=== PATIENT | female | born 1950 | race Caucasian/White ===

== ENCOUNTER 2017-03-07 14:59 | Inpatient (IN) | payer OTHER, MEDICAID ==
[~2017-03-07] VITALS: Ht 152.4 cm; Wt 90.7 kg
[2017-03-07 15:15] VITALS: BP 158/103; PULSE 108; RESP 23; TEMP 99; O2SAT 90
--- NOTE | 2017-03-07 15:15 | NUR ---
Patient to ER bed 1 to gown for evaluation. Side rails up. Report given to Roselia REVELES.
--- NOTE | 2017-03-07 15:21 | NUR ---
Patient to ER C/O productive cough with greenish sputum for the past 4 days. Patient also C/O chest pressure. Patient has Hx of COPD & DM. AAOx4, wheezing upper lobed and diminished lower lobes. No distress.
--- NOTE | 2017-03-07 15:24 | NUR ---
ER MD Zepeda at bedside for evaluation
--- NOTE | 2017-03-07 15:32 | NUR ---
RT at bedside for breathing treatment
[2017-03-07] MEDS ORDERED: ALBUTEROL SULFATE 0.083% 2.5 MG/3 ML VIAL.NEB INH ONE ×2 (15:45→17:30)
[2017-03-07 16:04] LABS: BASOPHILS # (AUTO) 0.1 K/uL (0.0-0.2); BASOPHILS % (AUTO) 0.7 % (0.0-2.0); EOSINOPHILS # (AUTO) 0.1 K/uL (0.0-0.4); EOSINOPHILS % (AUTO) 0.9 % (0.0-4.0); HEMATOCRIT 37.9 % (36-48); HEMOGLOBIN 12.7 g/dL (12.0-16.0); LYMPHOCYTES # (AUTO) 1.7 K/uL (1.0-5.5); LYMPHOCYTES % (AUTO) 12.7 % (20.5-51.5); MEAN CORPUSCULAR HEMOGLOBIN 29 pg (27-31); MEAN CORPUSCULAR HGB CONC 34 % (32-36); MEAN CORPUSCULAR VOLUME 86 fL (79.0-98.0); MONOCYTES # (AUTO) 0.7 K/uL (0.0-1.0); MONOCYTES % (AUTO) 5.7 % (1.7-9.3); NEUTROPHILS # (AUTO) 10.5 K/uL (1.8-7.7); PLATELET COUNT (AUTO) 196 K/uL (130-430); RED BLOOD CELL COUNT(AUTO) 4.39 MIL/uL (4.2-6.2); WHITE BLOOD COUNT (AUTO) 13.1 K/uL (4.8-10.8)
[2017-03-07 16:17] LABS: BILIRUBIN,URINE NEGATIVE (NEGATIVE); CLARITY/URINE CLOUDY (CLEAR); COLOR,URINE YELLOW (YELLOW); GLUCOSE,URINE 3+ (NEGATIVE); KETONES,URINE NEGATIVE (NEGATIVE); LEUKOCYTE ESTERASE ,URINE 1+ (NEGATIVE); PH,URINE 5.5 (5.0-8.0); PROTEIN URINE TRACE (NEGATIVE)
[2017-03-07 16:18] LABS: BLOOD, URINE TRACE (NEGATIVE); NITRITE, URINE NEGATIVE (NEGATIVE); UROBILINOGEN,URINE 0.2 (0.2-1.0)
[2017-03-07 16:20] LABS: CALCIUM 8.6 mg/dL (8.4-11.0); CREATININE 1.18 mg/dL (0.55-1.30)
[2017-03-07 16:21] LABS: PROTHROMBIN TIME 10.5 SECS (9.5-12.5)
[2017-03-07 16:22] LABS: BACTERIA,URINE MANY /HPF (None Seen); WBC,URINE >100 /HPF (0-3)
[2017-03-07 16:23] LABS: MUCUS,URINE None Seen /LPF (None Seen)
[2017-03-07 16:25] LABS: ALBUMIN 3.3 g/dL (3.4-4.8); TOTAL BILIRUBIN 0.4 mg/dL (0.0-1.0); TOTAL PROTEIN, SERUM 7.2 g/dL (6.4-8.3)
--- NOTE | 2017-03-07 16:27 | NUR ---
Medication reconciliation completed - verbal from patient. Patient knows the names of the medications but does not remeber how often or how many mgs
[2017-03-07] MEDS ORDERED: FLUT1DIS5 INH (16:30)
[2017-03-07] MEDS ORDERED: SPIRIVA INH (16:30)
[2017-03-07] MEDS ORDERED: LISI2.5T48 PO (16:30)
[2017-03-07] MEDS ORDERED: SITA1TAB9 PO (16:30)
[2017-03-07] MEDS ORDERED: GLIP2.5T3 PO (16:30)
[2017-03-07] MEDS ORDERED: BECL8.7A6 IH (16:30)
[2017-03-07 16:46] LABS: BLOOD GAS PH 7.378 (7.350-7.450)
[2017-03-07 16:47] LABS: ABG TOTAL HEMOGLOBIN 13.2 G/dL (12.0-18.0); BLOOD GAS BASE EXCESS -0.2 mmol/L (-3.0-3.0); BLOOD GAS COHb% 0.6 % (0.5-1.5); BLOOD GAS HHB 10.2 % (0.0-6.0); BLOOD O2Hb% 88.7 % (94.0-97.0)
--- NOTE | 2017-03-07 16:49 | NUR ---
# 20 gauge angiocath placed to left ac. Use of asceptic technique. Opsite placed over site. Blood return noted. Blood for lab drawn from site. Flushed with 10 cc of normal saline. No evidence of infiltration noted. Patient tolerated well.
--- NOTE | 2017-03-07 17:24 | NUR ---
MD Varela at bedside evaluating the patient for admission
[2017-03-07] MEDS ORDERED: LEVOFLOXACIN 500 MG/D5W 100 ML IV ONE ×2 (17:30→17:45)
[2017-03-07] MEDS ORDERED: NS 500 ML IV ONE (17:30)
--- NOTE | 2017-03-07 17:43 | NUR ---
Patient will be admitted to care of Dr England by Dr Varela. Admitted to TELE IN unit. Will go to room 130A. Belongings list completed. Summary report printed. Report given to RN.
[2017-03-07] MEDS ORDERED: DEXTROSE 50% JECT 50 ML DISP.SYRIN IVP PRN (17:45)
--- NOTE | 2017-03-07 17:57 | NUR ---
[facility]. Licensed nurse present. IV present no signs or symptoms of infiltration.
[2017-03-07] MEDS ORDERED: ACETAMINOPHEN 500 MG TABLET PO PRN (18:00)
--- NOTE | 2017-03-07 18:10 | NUR ---
ADMISSION NOTE Received patient from ER via gurney. Patient admitted with diagnosis of SEPSIS/PNA. Patient is awake, alert, oriented X 3. Patient oriented to hospital room, call light, toileting, pain management and safety-teach back done. Patient informed that Tanya will be her nurse and that their room number is 130A. Call light within reach.
--- NOTE | 2017-03-07 19:09 | NUR ---
Consult Called Reason for consultation: COPD Was consult called? Yes Person who was notified: Consulting Physician: Crista Liu MD Photographic Reproduction Technician Specialty: Pulmonary Photographic Reproduction Technician
--- NOTE | 2017-03-07 19:30 | NUR ---
SBAR REPORT GIVEN TO INCOMING NURSE LANDY RN.
[2017-03-07 19:34] VITALS: BP 113/59; PULSE 92; RESP 18; TEMP 98.7; O2SAT 94
[2017-03-07 19:45] VITALS: BP 128/71; PULSE 85; RESP 20; TEMP 97.7; O2SAT 94
[2017-03-07 20:45] VITALS: BP 128/71; PULSE 90
--- NOTE | 2017-03-07 21:30 | NUR ---
ROUNDS PT IS RESTING IN BED, WATCHING TV @ THIS TIME. NO S/S OF PAIN AND NO RESPI DISTRESS NOTED. BED IN LOW POSITION WITH CALL LIGHT WITHIN REACH. WILL CONT TO MONITOR.
[2017-03-07] MEDS: ALBUTEROL SULFATE 0.083% 2.5 MG/3 ML VIAL.NEB INH PRN (22:04)
[2017-03-07] MEDS: methylPREDNISolone SOD SUCC/PF 62.5 MG/ML VIAL IVP SCH (22:04)
[2017-03-07] MEDS: NACL 0.9% 1,000 ML IV SCH (22:04)
[2017-03-07] MEDS: IPRATROPIUM BROM 0.5 MG/2.5 ML VIAL.NEB (ATROVENT) INH PRN (22:05)
[2017-03-07 23:29] VITALS: BP 133/70; PULSE 88; RESP 21; TEMP 97.3; O2SAT 82
--- NOTE | 2017-03-07 23:30 | NUR ---
ASSISTED TO COMMODE ASSISTED PT TO COMMODE AND SAFELY BACK TO BED. NO S/S OF PAIN AND NO RESPI DISTRESS NOTED. BED IN LOW POSITION WITH CALL LIGHT WITHIN REACH. WILL CONT TO MONITOR.
[2017-03-07] MEDS: INSULIN REGULAR, HUMAN 100 UNITS/ML, 10 ML VIAL (novoLIN R) SUBCUT PRN (23:59)
--- NOTE | 2017-03-08 01:30 | NUR ---
ROUNDS PT IS RESTING COMFORTABLY IN BED. NO S/S OF PAIN AND NO RESPI DISTRESS NOTED. BED IN LOW POSITION WITH CALL LIGHT WITHIN REACH. WILL CONT TO MONITOR.
[2017-03-08] MEDS: methylPREDNISolone SOD SUCC/PF 62.5 MG/ML VIAL IVP SCH ×3 (05:18→20:23)
[2017-03-08 05:20] VITALS: BP 114/64; PULSE 85; RESP 17; TEMP 97.6; O2SAT 97
[2017-03-08] MEDS: INSULIN REGULAR, HUMAN 100 UNITS/ML, 10 ML VIAL (novoLIN R) SUBCUT PRN ×4 (05:32→23:52)
[2017-03-08 06:31] LABS: BASOPHILS % (AUTO) 0.2 % (0.0-2.0); EOSINOPHILS % (AUTO) 0.1 % (0.0-4.0); HEMATOCRIT 35.2 % (36-48); HEMOGLOBIN 12.4 g/dL (12.0-16.0); LYMPHOCYTES # (AUTO) 0.8 K/uL (1.0-5.5); LYMPHOCYTES % (AUTO) 7.3 % (20.5-51.5); MEAN CORPUSCULAR HEMOGLOBIN 30 pg (27-31); MEAN CORPUSCULAR HGB CONC 35 % (32-36); MEAN CORPUSCULAR VOLUME 85 fL (79.0-98.0); MONOCYTES # (AUTO) 0.1 K/uL (0.0-1.0); MONOCYTES % (AUTO) 0.8 % (1.7-9.3); NEUTROPHILS # (AUTO) 10.7 K/uL (1.8-7.7); NEUTROPHILS % (AUTO) 91.6 % (40.0-70.0); PLATELET COUNT (AUTO) 176 K/uL (130-430); RED BLOOD CELL COUNT(AUTO) 4.15 MIL/uL (4.2-6.2); WHITE BLOOD COUNT (AUTO) 11.6 K/uL (4.8-10.8)
[2017-03-08 06:41] LABS: ALBUMIN 3.1 g/dL (3.4-4.8); CALCIUM 8.5 mg/dL (8.4-11.0); CREATININE 1.03 mg/dL (0.55-1.30); POTASSIUM 4.6 mmol/L (3.5-5.1); TOTAL BILIRUBIN 0.4 mg/dL (0.0-1.0); TOTAL PROTEIN, SERUM 7.1 g/dL (6.4-8.3)
--- NOTE | 2017-03-08 06:59 | NUR ---
FINAL NOTES PT IS COMFORTABLY RESTING @ THIS TIME. NO S/S OF PAIN. V/S ARE WNL. ALL NEEDS MET AND ANTICIPATED BY NOC NURSES. BED IN LOW POSITION WITH SIDE RAILS UPX 2 FOR SAFETY. CALL LIGHT WITHIN REACH, ENDORSED.
--- NOTE | 2017-03-08 08:00 | NUR ---
AM Initial Notes Pt aaox4 with no complaints of pain or discomfort. Patient just came from ambulating from bed to bedside commode and felt shortness of breath and difficulty breathing but no distress noted. States she did not sleep well last night and feels tired. O2 via nasal canula @ 2L in place. regional coordinator in place. Bilateral scd on. Educated about fall and safety precautions. Encouraged to call for assistance. Call light within reach. Will monitor.
[2017-03-08 08:16] VITALS: BP 121/61; PULSE 76; RESP 22; TEMP 97.8; O2SAT 93
[2017-03-08] MEDS: PANTOPRAZOLE SODIUM 40 MG TAB PO SCH (08:23)
--- NOTE | 2017-03-08 08:30 | NUR ---
Shortness of breath Pt ambulated to bedside commode and felt shortness of breath and weak. Assisted back to bed after voiding. Called RT for breathing treatment. Kept comfortable. Encouraged to call for assistance. Will monitor.
[2017-03-08] MEDS: IPRATROPIUM BROM 0.5 MG/2.5 ML VIAL.NEB (ATROVENT) INH PRN ×2 (08:41→22:09)
[2017-03-08] MEDS: ALBUTEROL SULFATE 0.083% 2.5 MG/3 ML VIAL.NEB INH PRN ×2 (08:41→22:08)
--- NOTE | 2017-03-08 09:00 | NUR ---
Dr. Samanta OAKES doing rounds and assessing patient. Plan of care discussed.
--- NOTE | 2017-03-08 09:55 | NUR ---
Consult Called consult for Dr. Liu spoke to Kellie
--- NOTE | 2017-03-08 10:00 | NUR ---
Rounds Pt awake resting in bed with mild shortness of breath noted. Pt just got back to bed from using bedside commode. No distress noted. Slow deep breathing and relaxation measures done. Kept pt comfortable. Encouraged to call for assistance. Call light within reach. Will monitor.
[2017-03-08] MEDS: cefTRIAXone 1 GM IVPB PREMIX 50 ML IV SCH (10:09)
--- NOTE | 2017-03-08 11:30 | NUR ---
Accucheck Blood sugar monitor 354. Insulin sliding scale administered.
[2017-03-08 11:56] VITALS: Ht 152.4 cm; Wt 90.7 kg
[2017-03-08 12:20] VITALS: BP 121/50; PULSE 81; RESP 18; TEMP 97.4; O2SAT 97
--- NOTE | 2017-03-08 13:00 | NUR ---
Rounds Pt awake resting in bed with mild shortness of breath but no distress noted. O2 via nasal canula in place. Kept comfortable. Encouraged to call for assistance. Will monitor.
[2017-03-08] MEDS: AZITHROMYCIN 500 MG in NS 250 ML IV SCH (13:34)
--- NOTE | 2017-03-08 15:00 | NUR ---
Rounds Pt asleep. No signs of facial grimacing for pain or discomfort. No sob, difficulty breathing or distress noted. O2 via nasal canula @2L in place. Call light within reach. Will monitor.
[2017-03-08 16:03] VITALS: BP 126/60; PULSE 84; RESP 18; TEMP 97.4; O2SAT 97
--- NOTE | 2017-03-08 17:00 | NUR ---
Rounds Pt awake resting in bed. No complaints of pain or discomfort. No sob, difficulty breathing or distress noted. Pt states she feels a little better. O2 via nasal canula in place. Encouraged to call for assistance. Will monitor.
[2017-03-08] MEDS: NACL 0.9% 1,000 ML IV SCH (17:42)
--- NOTE | 2017-03-08 18:30 | NUR ---
Closing notes Pt awake resting in bed. No significant changes noted. Kept comfortable. Encouraged to call for assistance. Call light within reach. Will monitor.
--- NOTE | 2017-03-08 19:19 | NUR ---
INITIAL NOTE RECVD PT IN BED AWAKE, WATCHING TV. V/S 129/69,96.8,82,18,93% WITH 2L N/C. IV NOTED TO R F/A G 22 NO INFILTRATE AND WITH GOOD BLOOD RETURN. BED IN LOW POSITION WITH CALL LIGHT WITHIN REACH. WILL CONT TO MONITOR.
[2017-03-08 19:20] VITALS: BP 126/69; PULSE 82; RESP 18; TEMP 96.8; O2SAT 93
--- NOTE | 2017-03-08 21:20 | NUR ---
ROUNDS PT IS AWAKE, WATCHING TV WITH GRANDSON @ THIS TIME. NO S/S OF PAIN AND NO SOB NOTED. BED IN LOW POSITION WITH SIDE RAILS UP X2. CALL LIGHT WITHIN REACH, WILL CONT TO MONITOR.
--- NOTE | 2017-03-08 23:20 | NUR ---
ROUNDS PT IS COMFORTABLY RESTING IN BED WITH GRANDSON @ BEDSIDE @ THIS TIME. NO S/S OF PAIN AND NO SOB NOTED. BED IN LOW POSITION WITH SIDE RAILS UP X2. CALL LIGHT WITHIN REACH, WILL CONT TO MONITOR.
--- NOTE | 2017-03-09 01:20 | NUR ---
ASSISTED TO COMMODE ASSISTED PT TO COMMODE AND SAFELY BACK TO BED. NO S/S OF ANY PAIN OR DISTRESS NOTED. LEFT BED IN LOW POSITION WITH CALL LIGHT WITHIN REACH. SON @ BEDSIDE, WILL CONT TO MONITOR.
--- NOTE | 2017-03-09 03:20 | NUR ---
ROUNDS PT IS COMFORTABLY RESTING IN BED WITH GRAND SON @ BEDSIDE @ THIS TIME. NO S/S OF PAIN AND NO SOB NOTED. BED IN LOW POSITION WITH SIDE RAILS UP X2. CALL LIGHT WITHIN REACH, WILL CONT TO MONITOR.
--- NOTE | 2017-03-09 05:21 | NUR ---
ROUNDS PT IS COMFORTABLY RESTING IN BED WITH HERNAN @ BEDSIDE. NO S/S OF PAIN AND NO SOB NOTED. BED IN LOW POSITION WITH SIDE RAILS UP X3. CALL LIGHT WITHIN REACH, WILL CONT TO MONITOR.
[2017-03-09] MEDS: INSULIN REGULAR, HUMAN 100 UNITS/ML, 10 ML VIAL (novoLIN R) SUBCUT PRN ×3 (05:53→17:15)
--- NOTE | 2017-03-09 06:45 | NUR ---
FINAL NOTES PT IS COMFORTABLY RESTING WITH GRAND SON @ BEDSIDE. NO S/S OF PAIN. V/S ARE WNL. ALL NEEDS MET AND ANTICIPATED BY NOC NURSES. BED IN LOW POSITION WITH SIDE RAILS UPX 2 FOR SAFETY. CALL LIGHT WITHIN REACH, ENDORSED.
--- NOTE | 2017-03-09 07:40 | NUR ---
AM ROUNDS PATIENT RESTING IN BED, AWAKE, ALERT AND ORIENTED X4, DENIES PAIN, DENIES SHORTNESS OF BREATH OR DIFFICULTY BREATHING, EDUCATED THE PATIENT SENIOR LINUX SYSTEMS ADMINISTRATOR LIGHT SYSTEM AND TO CALL FOR ANY ASSISTANCE, PATIENT VERBALIZED UNDERSTANDING AT THIS TIME, ASSESSMENT COMPLETE, NO OTHER NEEDS AT THIS TIME, BED IN LOWEST POSITION, THREE SIDE RAILS UP, BED ALARM ON, FALL AND ASPIRATION PRECAUTIONS IN PLACE, CALL LIGHT NEXT TO THE PATIENT'S HAND.
[2017-03-09 08:08] VITALS: BP 129/69; PULSE 68; RESP 18; TEMP 97.1; O2SAT 94
[2017-03-09] MEDS: cefTRIAXone 1 GM IVPB PREMIX 50 ML IV SCH (09:21)
[2017-03-09] MEDS: LISINOPRIL 5 MG TABLET PO SCH (09:21)
[2017-03-09] MEDS: PANTOPRAZOLE SODIUM 40 MG TAB PO SCH (09:21)
[2017-03-09] MEDS: methylPREDNISolone SOD SUCC/PF 62.5 MG/ML VIAL IVP SCH ×2 (09:22→20:57)
--- NOTE | 2017-03-09 09:25 | NUR ---
RN ROUNDS PATIENT RESTING IN BED, AWAKE, DENIES PAIN, DENIES DIFFICULTY BREATHING, EDUCATED ON MEDICATIONS AND POTENTIAL SIDE EFFECTS, PATIENT VERBALIZED UNDERSTANDING AND TOLERATED WELL AT THIS TIME, WILL FOLLOW UP WITH SECOND IV ANTIBIOTIC, PATIENT HAS NO OTHER NEEDS AT THIS TIME, BED IN LOWEST POSITION, THREE SIDE RAILS UP, BED ALARM ON, CALL LIGHT NEXT TO THE PATIENT'S HAND, FALL PRECAUTIONS IN PLACE.
[2017-03-09] MEDS: ALBUTEROL SULFATE 0.083% 2.5 MG/3 ML VIAL.NEB INH PRN ×3 (09:39→20:55)
[2017-03-09] MEDS: IPRATROPIUM BROM 0.5 MG/2.5 ML VIAL.NEB (ATROVENT) INH PRN ×3 (09:39→20:55)
[2017-03-09] MEDS: NACL 0.9% 1,000 ML IV SCH (09:45)
[2017-03-09] MEDS: AZITHROMYCIN 500 MG in NS 250 ML IV SCH (10:16)
--- NOTE | 2017-03-09 11:45 | NUR ---
RN ROUNDS PATIENT RESTING IN BED, AWAKE, DENIES PAIN, PARESH SHORTNESS OF BREATH, BLOOD GLUCOSE CHECKED AND INSULIN ADMINISTERED PER MD ORDERS, NO OTHER NEEDS AT THIS TIME, BED IN LOWEST POSITION, THREE SIDE RAILS UP, BED ALARM ON, FALL AND ASPIRATION PRECAUTIONS IN PLACE, CALL LIGHT NEXT TO THE PATIENT'S HAND.
[2017-03-09 12:24] VITALS: BP 116/56; PULSE 88; RESP 16; TEMP 97.2; O2SAT 100
--- NOTE | 2017-03-09 14:27 | NUR ---
RN ROUNDS PATIENT RESTING IN BED, AWAKE, DENIES PAIN, ASKING IF SHE CAN GET A BREATHING TREATMENT, CALLED RT TO GIVE TREATMENT, LEFT VOICEMAIL, WILL FOLLOW UP, NO OTHER NEEDS AT THIS TIME, BED IN LOWEST POSITION, THREE SIDE RAILS, LUISA BERRY ASSISTING THE PATIENT AT THIS TIME.
--- NOTE | 2017-03-09 16:20 | NUR ---
RN ROUNDS PATIENT RESTING IN BED, DENIES PAIN, ASKING FOR A BREATHING TREATMENT, CALLED RT TO FOLLOW UP, NO OTHER NEEDS AT THIS TIME, BED IN LOWEST POSITION, THREE SIDE RAILS UP, BED ALARM ON, FALL AND ASPIRATION PRECAUTIONS IN PLACE, CALL LIGHT NEXT TO THE PATIENT'S HAND.
[2017-03-09 16:53] VITALS: BP 120/60; PULSE 82; RESP 17; TEMP 98.1; O2SAT 100
--- NOTE | 2017-03-09 17:19 | NUR ---
RN ROUNDS PATIENT RESTING IN BED, DENIES PAIN, DENIES DIFFICULTY BREATHING, BLOOD GLUCOSE CHECK AND INSULIN ADMINISTRATION COMPLETE PER MD ORDERS, NO OTHER NEEDS AT THIS TIME, BED IN LOWEST POSITION, THREE SIDE RAILS UP, BED ALARM ON, FALL AND ASPIRATION PRECAUTIONS IN PLACE, CALL LIGHT NEXT TO THE PATIENT'S HAND.
--- NOTE | 2017-03-09 18:25 | NUR ---
CLOSING NOTES PATIENT RESTING IN BED, AWAKE, DENIES PAIN, DENIES DIFFICULTY BREATHING AT THIS TIME, ALL NEEDS MET, BED IN LOWEST POSITION, THREE SIDE RAILS UP, BED ALARM ON, FALL AND ASPIRATION PRECAUTIONS IN PLACE, CALL LIGHT NEXT TO THE PATIENT'S HAND, WILL ENDORSE REPORT TO NOC SHIFT NURSE.
[2017-03-09 19:30] VITALS: BP 136/72; PULSE 71; RESP 20; TEMP 96.9; O2SAT 97
--- NOTE | 2017-03-09 19:31 | NUR ---
Initial PM Note Pt was received lying in bed fully awake, alert and oriented x4. Speech is clear and pt is able to make her needs known. No c/o pain or discomfort. No respiratory distress noted. Oxygen is on at 2l/min per NC. Skin is warm and dry to touch. No signs or symptoms of hypoglycemia or hyperglycemia noted. IVF of NS is in fusing well in Rt wrist at 50ml/hr and no signs of infiltration noted at the IV site. Fall precautions are in place. Pt was instructed to call for assistance as needed and pt verbalized understanding. Call light is with pt. Bed is in the lowest and locked positions. Will continue to monitor pt.
--- NOTE | 2017-03-09 20:56 | NUR ---
Blood Sugar Accucheck 294 and Scheduled Levemir 10units given SQ. Skin remains warm and dry to touch. Pt was offered HS snacks and she declined. Addendum: 03/10/17 at 0135 by Judit Marcelo RN Correction: Accucheck was 336.
[2017-03-10] VITALS (7 sets, daily range): BP systolic 119–135; BP diastolic 69–101; PULSE 68–89; RESP 15–21; TEMP 97.7–98.7; O2SAT 90–100
[2017-03-10] MEDS: INSULIN REGULAR, HUMAN 100 UNITS/ML, 10 ML VIAL (novoLIN R) SUBCUT PRN ×5 (00:17→20:41)
--- NOTE | 2017-03-10 00:17 | NUR ---
Blood Sugar Accucheck 294 and 6 units Regular Insulin given SQ. Skin remains warm and dry to touch. IVF is infusing well in Rt wrist.
[2017-03-10] MEDS: NACL 0.9% 1,000 ML IV SCH (02:09)
--- NOTE | 2017-03-10 02:30 | NUR ---
Rounds Pt is sleeping without any distress noted. Fall and safety precautions are in place. IVF is infusing well.
--- NOTE | 2017-03-10 04:30 | NUR ---
Rounds Pt is sleeping comfortably in bed. IVF is infusing well.
[2017-03-10] MEDS: ALBUTEROL SULFATE 0.083% 2.5 MG/3 ML VIAL.NEB INH PRN ×3 (05:28→14:41)
[2017-03-10] MEDS: IPRATROPIUM BROM 0.5 MG/2.5 ML VIAL.NEB (ATROVENT) INH PRN (05:28)
--- NOTE | 2017-03-10 06:30 | NUR ---
Closing Note Pt is awake and resting comfortably in bed. All pt's needs were attended to. No fall or injury noted this shift. Will endorse to day shift nurse.
[2017-03-10 07:05] LABS: BASOPHILS % (AUTO) 0.2 % (0.0-2.0); EOSINOPHILS % (AUTO) 0.1 % (0.0-4.0); HEMOGLOBIN 12.9 g/dL (12.0-16.0); LYMPHOCYTES # (AUTO) 1.3 K/uL (1.0-5.5); LYMPHOCYTES % (AUTO) 10.5 % (20.5-51.5); MEAN CORPUSCULAR HEMOGLOBIN 29 pg (27-31); MEAN CORPUSCULAR HGB CONC 32 % (32-36); MEAN CORPUSCULAR VOLUME 88 fL (79.0-98.0); MONOCYTES # (AUTO) 0.2 K/uL (0.0-1.0); MONOCYTES % (AUTO) 1.7 % (1.7-9.3); NEUTROPHILS # (AUTO) 10.4 K/uL (1.8-7.7); NEUTROPHILS % (AUTO) 87.5 % (40.0-70.0); PLATELET COUNT (AUTO) 227 K/uL (130-430); RED BLOOD CELL COUNT(AUTO) 4.53 MIL/uL (4.2-6.2); RED CELL DISTRIBUTION WIDTH 13.9 % (9.0-15.0); WHITE BLOOD COUNT (AUTO) 11.9 K/uL (4.8-10.8)
--- NOTE | 2017-03-10 07:45 | NUR ---
AM ROUNDS PATIENT RESTING IN BED, AWAKE, ALERT AND ORIENTED X4, DENIES PAIN, STATES SHE IS HAVING SOME SHORTNESS OF BREATH AND WHEEZING, WILL INFORM DR SHARMA, EDUCATED THE PATIENT VIDEO GAME PROGRAMMER LIGHT SYSTEM AND TO CALL FOR ANY ASSISTANCE, PATIENT VERBALIZED UNDERSTANDING AT THIS TIME, ASSESSMENT COMPLETE, NO OTHER NEEDS AT THIS TIME, BED IN LOWEST POSITION, THREE SIDE RAILS UP, BED ALARM ON, FALL AND ASPIRATION PRECAUTIONS IN PLACE, CALL LIGHT NEXT TO THE PATIENT'S HAND.
[2017-03-10 08:22] LABS: ALBUMIN 3.3 g/dL (3.4-4.8); CREATININE 1.09 mg/dL (0.55-1.30); POTASSIUM 4.5 mmol/L (3.5-5.1); TOTAL BILIRUBIN 0.2 mg/dL (0.0-1.0); TOTAL PROTEIN, SERUM 7.5 g/dL (6.4-8.3)
--- NOTE | 2017-03-10 08:36 | NUR ---
PAGED DR AVILES, HELDER CAMARENA
[2017-03-10] MEDS ORDERED: FUROSEMIDE 20 MG/2 ML VIAL IVP ONE (09:00)
--- NOTE | 2017-03-10 09:15 | NUR ---
DR SHARMA CALL BACK INFORMED THAT PATIENT IS HAVING WHEEZING AND SHORTNESS OF BREATH AND A COUGH, ORDERED TO DISCONTINUE IV FLUIDS, LASIX 20MG IVP X1 NOW, BREATHING TREATMENT SCHEDULED INSTEAD OF PRN, CHANGE THE SOLUMEDROL FREQUENCY TO [id number], WILL FOLLOW UP.
[2017-03-10] MEDS: IPRATROPIUM BROM 0.5 MG/2.5 ML VIAL.NEB (ATROVENT) INH SCH ×2 (09:17→14:41)
[2017-03-10] MEDS: PANTOPRAZOLE SODIUM 40 MG TAB PO SCH (09:26)
[2017-03-10] MEDS: LISINOPRIL 5 MG TABLET PO SCH (09:26)
--- NOTE | 2017-03-10 09:27 | NUR ---
RN ROUNDS PATIENT RESTING IN BED, AWAKE, RECEIVING A BREATHING TREATMENT AT THIS TIME, EDUCATED THE PATIENT ON MEDICATIONS AND POTENTIAL SIDE EFFECTS, INSTRUCTED THE PATIENT TO CALL FOR ANY ASSISTANCE, PATIENT VERBALIZED UNDERSTANDING AND TOLERATED MEDICATION ADMINISTRATION WELL, NO OTHER NEEDS AT THIS TIME, BED IN LOWEST POSITION, THREE SIDE RAILS UP, BED ALARM ON, FALL AND ASPIRATION PRECAUTIONS IN PLACE, CALL LIGHT NEXT TO THE PATIENT'S HAND.
[2017-03-10] MEDS: cefTRIAXone 1 GM IVPB PREMIX 50 ML IV SCH (09:31)
--- NOTE | 2017-03-10 10:00 | NUR ---
DR ORTIZ ROUNDS INFORMED THAT NURSE SPOKE WITH DR SHARMA OVER THE PHONE DUE TO PATIENT'S CONDITION, WILL FOLLOW UP WITH ANY NEW ORDERS.
[2017-03-10] MEDS: AZITHROMYCIN 500 MG in NS 250 ML IV SCH (11:03)
[2017-03-10] MEDS: PROMETHAZINE-DM 6.25 MG-15 MG/5 ML UDC PO PRN (11:03)
[2017-03-10] MEDS: methylPREDNISolone SOD SUCC/PF 62.5 MG/ML VIAL IVP SCH ×3 (11:56→23:12)
--- NOTE | 2017-03-10 12:00 | NUR ---
RN ROUNDS PATIENT RESTING IN BED, AWAKE, DENIES PAIN ,DENIES SHORTNESS IN BREATH, EDUCATED ON MEDICATION AND POTENTIAL SIDE EFFECTS, PATIENT VERBALIZED UNDERSTANDING, IV SITE IS PATENT AND INFUSING WELL, BLOOD GLUCOSE CHECK AND INSULIN ADMINISTRATION COMPLETE PER MD ORDERS, NO OTHER NEEDS AT THIS TIME, BED IN LOWEST POSITION, THREE SIDE RAILS UP, BED ALARM ON, CALL LIGHT NEXT TO THE PATIENT'S HAND.
--- NOTE | 2017-03-10 14:00 | NUR ---
RN ROUNDS PATIENT RESTING IN BED, EYES CLOSED, BREATHING IS EVEN AND UNLABORED, NO SIGNS OF DISTRESS AT THIS TIME, BED IN LOWEST POSITION, THREE SIDE RAILS UP, BED ALARM ON, CALL LIGHT NEXT TO THE PATIENT'S HAND, FALL, ASPIRATION PRECAUTIONS IN PLACE, WILL CONTINUE TO MONITOR.
--- NOTE | 2017-03-10 16:00 | NUR ---
RN ROUNDS PATIENT RESTING IN BED, AWAKE, DENIES PAIN, NO OTHER NEEDS AT THIS TIME, NO SIGNS OF DISTRESS AT THIS TIME, BED IN LOWEST POSITION, THREE SIDE RAILS UP, BED ALARM ON, CALL LIGHT NEXT TO THE PATIENT'S HAND, FALL, ASPIRATION PRECAUTIONS IN PLACE, WILL CONTINUE TO MONITOR.
--- NOTE | 2017-03-10 19:03 | NUR ---
CLOSING NOTES PATIENT RESTING IN BED, AWAKE, DENIES PAIN, ALL NEEDS MET, WILL ENDORSE REPORT TO NOC SHIFT NURSE, BED IN LOWEST POSITION, THREE SIDE RAILS UP, BED ALARM ON, CALL LIGHT NEXT TO THE PATIENT'S HAND.
--- NOTE | 2017-03-10 20:00 | NUR ---
Initial Notes Received patient laying in bed, awake, alert, oriented, family at bedside. Patient denies any acute distress or pain at this time. Vital signs stable. Breathing even and unlabored on 2L NC. IV site patent/clean/dry. Educated patient on use of call light for assistance and fall precautions, patient verbalized understanding. Call light in hand, will continue to monitor.
--- NOTE | 2017-03-10 20:48 | NUR ---
paged paged for Dr England, dialed . s/w Gómez, Dr Low is on-call for Dr England.
--- NOTE | 2017-03-10 22:00 | NUR ---
Rounds, MD communication Patient resting in bed, awake watching TV, family at bedside. Patient denies any acute distress or pain at this time. Breathing even and unlabored. Needs addressed, call light in hand. Will continue to monitor. Spoke with Dr. Low, covering for Dr. England, regarding patient's elevated blood sugar, no new orders received. Patient asymptomatic, in no acute distress. Will continue to monitor.
[2017-03-11] VITALS (7 sets, daily range): BP systolic 126–156; BP diastolic 61–88; PULSE 66–76; RESP 18–20; TEMP 97–99.1; O2SAT 91–95
--- NOTE | 2017-03-11 | NUR ---
Rounds Patient resting in bed with eyes closed, no acute distress noted, family at bedside. Breathing even and unlabored. Call light in hand, fall precautions in place, will continue to monitor.
--- NOTE | 2017-03-11 02:00 | NUR ---
Rounds Patient resting in bed with eyes closed, family at bedside. No acute distress noted, breathing even and unlabored. Call light in hand, fall precautions in place. Will continue to monitor for changes and safety.
--- NOTE | 2017-03-11 04:17 | NUR ---
Rounds Patient resting in bed with eyes closed, family at bedside. No acute distress noted, breathing even and unlabored. IV site patent/clean/dry. Call light in hand, will continue to monitor.
[2017-03-11] MEDS: methylPREDNISolone SOD SUCC/PF 62.5 MG/ML VIAL IVP SCH ×4 (05:32→23:54)
[2017-03-11] MEDS: INSULIN REGULAR, HUMAN 100 UNITS/ML, 10 ML VIAL (novoLIN R) SUBCUT PRN ×3 (05:35→17:51)
--- NOTE | 2017-03-11 06:37 | NUR ---
Closing Notes Patient resting in bed with eyes closed, easily aroused, family at bedside. Patient denies any acute distress or pain at this time. Breathing even and unlabored. IV site patent/clean/dry, no S/S infection/infiltration noted. Needs addressed throughout shift. Call light in hand, fall precautions in place. Will continue to monitor for changes and safety, and endorse all patient care/needs to oncoming nurse.
[2017-03-11 07:40] LABS: BASOPHILS % (AUTO) 0.1 % (0.0-2.0); EOSINOPHILS % (AUTO) 0.1 % (0.0-4.0); HEMATOCRIT 38.3 % (36-48); LYMPHOCYTES # (AUTO) 1.4 K/uL (1.0-5.5); LYMPHOCYTES % (AUTO) 12.8 % (20.5-51.5); MEAN CORPUSCULAR HEMOGLOBIN 30 pg (27-31); MEAN CORPUSCULAR HGB CONC 34 % (32-36); MEAN CORPUSCULAR VOLUME 87 fL (79.0-98.0); MONOCYTES # (AUTO) 0.3 K/uL (0.0-1.0); MONOCYTES % (AUTO) 2.4 % (1.7-9.3); NEUTROPHILS # (AUTO) 8.9 K/uL (1.8-7.7); NEUTROPHILS % (AUTO) 84.6 % (40.0-70.0); PLATELET COUNT (AUTO) 237 K/uL (130-430); RED BLOOD CELL COUNT(AUTO) 4.39 MIL/uL (4.2-6.2); RED CELL DISTRIBUTION WIDTH 13.8 % (9.0-15.0); WHITE BLOOD COUNT (AUTO) 10.6 K/uL (4.8-10.8)
--- NOTE | 2017-03-11 08:00 | NUR ---
initial notes rec patient awake alert and eating breakfast at bedside and javy well. resp easy and unlabored. with o2 at 2 liters via nasal no sob noted. patient with bilateral crackles noted. voiding using the commode at bedside with min assists. grandson at the bedside. bed in low position and side rails up and locked.call light with reached.
[2017-03-11 08:22] LABS: CALCIUM 8.7 mg/dL (8.4-11.0); POTASSIUM 4.4 mmol/L (3.5-5.1)
[2017-03-11 08:23] LABS: ALBUMIN 3.2 g/dL (3.4-4.8); CREATININE 1.18 mg/dL (0.55-1.30); TOTAL BILIRUBIN 0.3 mg/dL (0.0-1.0); TOTAL PROTEIN, SERUM 7.2 g/dL (6.4-8.3)
[2017-03-11] MEDS: PANTOPRAZOLE SODIUM 40 MG TAB PO SCH (09:32)
[2017-03-11] MEDS: cefTRIAXone 1 GM IVPB PREMIX 50 ML IV SCH (09:33)
[2017-03-11] MEDS: LISINOPRIL 5 MG TABLET PO SCH (09:33)
--- NOTE | 2017-03-11 10:00 | NUR ---
rounds seen by dr fabian and with orders. no sob noted. no acute distress noted.
[2017-03-11] MEDS: AZITHROMYCIN 500 MG in NS 250 ML IV SCH (11:34)
[2017-03-11] MEDS: PROMETHAZINE-DM 6.25 MG-15 MG/5 ML UDC PO PRN (11:35)
--- NOTE | 2017-03-11 12:00 | NUR ---
rounds eating lunch. no hypo hyperglycemic reaction noted. uses the commode at intervals and javy well
--- NOTE | 2017-03-11 14:00 | NUR ---
rounds walking with p t at this time for at the bed and javy well. no acute distress noted,
--- NOTE | 2017-03-11 14:25 | NUR ---
HCP/PA: Faxed requested H&P, Progress notes, and Medication list to [facility].
--- NOTE | 2017-03-11 16:00 | NUR ---
rounds pt is asleep at this. no sob noted. call light withn reached.
--- NOTE | 2017-03-11 18:30 | NUR ---
closing notes no acute distress. resp easy and unlabored. call light within reached and bed in low position and side rails up and locked.
--- NOTE | 2017-03-11 20:00 | NUR ---
Opening Note Patient is in stable condition. Currently sitting up in bed. Elia is at the bedside. Call light is within reach. Instructed her to use it whenever in need of assistance. Currently on O2 2L via NC. IV is on the [employer] 22g running NS @ [employer]. Will continue to monitor.
--- NOTE | 2017-03-11 21:30 | NUR ---
a bedside Dr. Brink spoke with the patient at the bedside. Ordered CT of the chest for tomorrow. also adjusted SoluMedrol dose.
--- NOTE | 2017-03-11 22:00 | NUR ---
Rounds Patient is resting in bed. Call light is within reach. Grandson is at the bedside.
[2017-03-12] MEDS: INSULIN REGULAR, HUMAN 100 UNITS/ML, 10 ML VIAL (novoLIN R) SUBCUT PRN ×3 (00:07→12:06)
[2017-03-12 00:08] VITALS: BP 145/87; PULSE 67; RESP 20; TEMP 97.6; O2SAT 92
--- NOTE | 2017-03-12 00:10 | NUR ---
IV started Started new IV on the left wrist 22g. Aseptic technique used. Patient was complaining and stated that old IV site was hurting.
--- NOTE | 2017-03-12 02:10 | NUR ---
Rounds Patient is sleeping in bed. Call light is within reach.
--- NOTE | 2017-03-12 04:20 | NUR ---
Rounds Patient is currently sleeping in bed. Grandson is at the bedside. Call light is within reach.
[2017-03-12 04:30] VITALS: BP 126/76; PULSE 66; RESP 20; TEMP 97; O2SAT 93
[2017-03-12 05:06] VITALS: BP 126/76; PULSE 66; RESP 20; TEMP 97; O2SAT 93
[2017-03-12] MEDS: methylPREDNISolone SOD SUCC/PF 62.5 MG/ML VIAL IVP SCH ×2 (05:24→12:06)
--- NOTE | 2017-03-12 05:47 | NUR ---
Blood Sugar Blood sugar is 226. Covered him 4 units Anastasia Anderson
--- NOTE | 2017-03-12 06:28 | NUR ---
Closing Note Patient is in stable condition. Grandson is at the bedside. IV is on the left wrist currently saline locked. O2 is at 2l via NC. Ct of the chest is pending for today. Call light is within reach. Will give report to the oncoming nurse.
[2017-03-12 08:00] VITALS: BP 124/78; PULSE 69; RESP 20; TEMP 97.6; O2SAT 91
--- NOTE | 2017-03-12 08:00 | NUR ---
initial notes rec patient awake alert with ivl on the l wrist area intact. no infiltration noted. resp easy and unlabored but still with bilateral crackles noted. uses the commode ot goes to the br at intervals and javy well. bed in low position and side rails up and locked. call light within reached and knows when to call for assiatnce. will continue to monitor patient.
[2017-03-12] MEDS ORDERED: guaiFENesin ER 600 MG TAB PO SCH (09:00)
[2017-03-12 09:31] LABS: ABG TOTAL HEMOGLOBIN 14.4 G/dL (12.0-18.0); BLOOD GAS PH 7.447 (7.350-7.450)
[2017-03-12 09:32] LABS: BLOOD GAS COHb% 0.2 % (0.5-1.5); BLOOD GAS HHB 9.3 % (0.0-6.0)
--- NOTE | 2017-03-12 09:44 | NUR ---
HCP/PA: Called [facility] made her aware of discharge to SNF. Addendum: 03/12/17 at 1101 by Nicki Wilkerson DP Per [facility] patient accepted at [facility] assigned to room 123A RN to report [phone]. [facility] ambulance [phone] on will call.
[2017-03-12] MEDS: PANTOPRAZOLE SODIUM 40 MG TAB PO SCH (09:58)
[2017-03-12] MEDS: cefTRIAXone 1 GM IVPB PREMIX 50 ML IV SCH (09:59)
[2017-03-12] MEDS: LISINOPRIL 5 MG TABLET PO SCH (09:59)
--- NOTE | 2017-03-12 10:09 | NUR ---
rounds dr fabian was made aware of the abg result. stated will go to a snf but refused to go. will have case fitter talk to patient.
[2017-03-12 11:27] VITALS: BP 144/68; PULSE 89; RESP 20; TEMP 97.6; O2SAT 98
--- NOTE | 2017-03-12 12:00 | NUR ---
rounds ambulates at intervals to the br. no hypo hyperglycemic reaction noted. no sob noted.
[2017-03-12] MEDS: AZITHROMYCIN 500 MG in NS 250 ML IV SCH (12:04)
[2017-03-12 12:46] VITALS: BP 144/68; PULSE 89; RESP 21; TEMP 97.6; O2SAT 93
--- NOTE | 2017-03-12 12:51 | NUR ---
Social Service Note: DIRECTOR STAFFING was called to pt's room to discuss pt's discharge. Pt states that she lives in [place] with her grandson who is at bedside. Pt states that her car is in the parking lot of the hospital and her grandson does not drive. Pt has orders to be discharged to a SNF; pt states that she prefers to go home. [employer] division manager was present at bedside and told her the physician wants her to have continued treatment at a SNF. DIRECTOR STAFFING alerted pt that if she decided to go home that it would most likely be against medical advice. Pt states that she may need to leave her car in the parking lot; DIRECTOR STAFFING alerted pt that the Security Department would be notified if pt needed to leave her car at the hospital; arrangements can be made with Security. Pt states that she is working on arranging a ride for her grandson to go back to [place]. DIRECTOR STAFFING will remain available for support and will follow up as needed.
--- NOTE | 2017-03-12 14:00 | NUR ---
rounds awaiting for ambulance to picker operator patient. no sob noted. resting comfortably at this time. call light within reached.
--- NOTE | 2017-03-12 15:15 | NUR ---
closing notes pt was discharged to [facility] via ambulance. stable. no sob noted. id band removed and ivl intact for abx therapy.
== END 2017-03-12 15:10 | DRG 871 ==
LOC: SED 14:59 → STU 17:37 → SMU 03-09 09:18
PROVIDERS: ADMIT Internal Medicine Hospice and Palliative Medicine; ATTEND Internal Medicine Hospice and Palliative Medicine
DX: A41.9 Sepsis, unspecified organism (principal); J18.9 Pneumonia, unspecified organism; J96.01 Acute respiratory failure with hypoxia; N39.0 Urinary tract infection, site not specified; J44.1 Chronic obstructive pulmonary disease with (acute) exacerbation; J44.0 Chronic obstructive pulmonary disease with (acute) lower respiratory infection; I10 Essential (primary) hypertension; E11.65 Type 2 diabetes mellitus with hyperglycemia; B96.1 Klebsiella pneumoniae [K. pneumoniae] as the cause of diseases classified elsewhere; G47.30 Sleep apnea, unspecified; J20.9 Acute bronchitis, unspecified; Z79.899 Other long term (current) drug therapy
CPT/HCPCS: 36415; 36600; 71010; 71250-TC; 80053; 81000-TC; 82803-TC; 82962; 83605; 83880; 84484; 85025; 85379; 85610-TC; 87086; 87186-TC; 93005; 93306; 94150; 94640; 94760; 97116-GP; 97530-GP; J0456; J0696; J1815; J1940; J1956; J2930; J7030; J7040; J7050

== ENCOUNTER 2018-07-03 21:19 | Inpatient (IN) | payer OTHER, MEDICAID ==
[~2018-07-03] VITALS: Ht 154.9 cm; Wt 87.1 kg
[2018-07-03 21:19] VITALS: BP_SYST 137
[~2018-07-03 21:19] MED LIST: BECL8.7A6 IH; FLUT1DIS5 INH; GLIP2.5T3 PO; LISI2.5T48 PO; SITA1TAB9 PO; SPIRIVA INH
[2018-07-03] MEDS ORDERED: NACL 0.9% 1,000 ML IV ONE (21:27)
[2018-07-03] MEDS ORDERED: IPRATROPIUM BROM 0.5 MG/2.5 ML VIAL.NEB (ATROVENT) IH ONE ×2 (21:30→22:45)
[2018-07-03] MEDS ORDERED: methylPREDNISolone SOD SUCC/PF 62.5 MG/ML VIAL IVP ONE (21:30)
[2018-07-03] MEDS ORDERED: ALBUTEROL SULFATE 0.083% 2.5 MG/3 ML VIAL.NEB IH ONE ×2 (21:30→22:45)
[2018-07-03 21:55] LABS: BASOPHILS # (AUTO) 0.1 K/uL (0.0-0.2); EOSINOPHILS # (AUTO) 0.1 K/uL (0.0-0.4); EOSINOPHILS % (AUTO) 0.9 % (0.0-4.0); HEMATOCRIT 39.1 % (36-48); HEMOGLOBIN 13.2 g/dL (12.0-16.0); LYMPHOCYTES # (AUTO) 2.5 K/uL (1.0-5.5); LYMPHOCYTES % (AUTO) 17.5 % (20.5-51.5); MEAN CORPUSCULAR HEMOGLOBIN 29 pg (27-31); MEAN CORPUSCULAR HGB CONC 34 % (32-36); MEAN CORPUSCULAR VOLUME 86 fL (79.0-98.0); MONOCYTES # (AUTO) 0.8 K/uL (0.0-1.0); MONOCYTES % (AUTO) 5.4 % (1.7-9.3); NEUTROPHILS # (AUTO) 10.9 K/uL (1.8-7.7); NEUTROPHILS % (AUTO) 75.2 % (40.0-70.0); PLATELET COUNT (AUTO) 244 K/uL (130-430); RED BLOOD CELL COUNT(AUTO) 4.56 MIL/uL (4.2-6.2); RED CELL DISTRIBUTION WIDTH 14.7 % (9.0-15.0); WHITE BLOOD COUNT (AUTO) 14.4 K/uL (4.8-10.8)
[2018-07-03 22:15] LABS: CREATININE 1.12 mg/dL (0.55-1.30); POTASSIUM 4.2 mmol/L (3.5-5.1)
[2018-07-03 22:22] LABS: ALBUMIN 3.3 g/dL (3.4-4.8); TOTAL BILIRUBIN 0.5 mg/dL (0.0-1.0)
[2018-07-03 22:23] LABS: PROTHROMBIN TIME 10.4 SECS (9.5-12.5)
[2018-07-03] MEDS ORDERED: HYDR10TA PO (23:36)
[2018-07-03] MEDS ORDERED: cefTRIAXone 1 GM IVPB PREMIX 50 ML IV ONE (23:45)
[2018-07-04 00:12] VITALS: BP_SYST 124
[2018-07-04] MEDS ORDERED: methylPREDNISolone SOD SUCC/PF 62.5 MG/ML VIAL IVP ONE (07:15)
[2018-07-04] MEDS ORDERED: IPRATROPIUM BROM 0.5 MG/2.5 ML VIAL.NEB (ATROVENT) INH PRN (07:15)
[2018-07-04] MEDS: IPRATROPIUM BROM 0.5 MG/2.5 ML VIAL.NEB (ATROVENT) INH SCH ×5 (07:15→23:21)
[2018-07-04] MEDS: ALBUTEROL SULFATE 0.083% 2.5 MG/3 ML VIAL.NEB INH SCH ×5 (07:15→23:20)
[2018-07-04] MEDS ORDERED: DEXTROSE 50% JECT 50 ML DISP.SYRIN IVP PRN (07:15)
[2018-07-04] MEDS ORDERED: ALBUTEROL SULFATE 0.083% 2.5 MG/3 ML VIAL.NEB INH PRN (07:15)
[2018-07-04 07:52] VITALS: BP_SYST 130
[2018-07-04] MEDS: INSULIN REGULAR, HUMAN 100 UNITS/ML, 10 ML VIAL (novoLIN R) SUBCUT PRN ×4 (08:06→23:18)
[2018-07-04] MEDS ORDERED: SILVER SULFADIAZINE 1%, 25 GM TOPICAL CREAM (SSD) TP ONE (10:20)
[2018-07-04] MEDS: LEVOFLOXACIN 500 MG/D5W 100 ML IV SCH (10:40)
[2018-07-04 12:20] VITALS: BP_SYST 133
[2018-07-04] MEDS: methylPREDNISolone SOD SUCC/PF 62.5 MG/ML VIAL IVP SCH ×2 (14:27→23:13)
[2018-07-04 16:25] VITALS: BP_SYST 141
[2018-07-04 20:36] VITALS: BP_SYST 117
[2018-07-04 23:40] VITALS: BP_SYST 127
[2018-07-05] MEDS: methylPREDNISolone SOD SUCC/PF 62.5 MG/ML VIAL IVP SCH ×2 (05:02→20:40)
[2018-07-05] MEDS: INSULIN REGULAR, HUMAN 100 UNITS/ML, 10 ML VIAL (novoLIN R) SUBCUT PRN ×4 (05:06→23:22)
[2018-07-05] MEDS: ALBUTEROL SULFATE 0.083% 2.5 MG/3 ML VIAL.NEB INH SCH ×5 (07:50→23:16)
[2018-07-05] MEDS: IPRATROPIUM BROM 0.5 MG/2.5 ML VIAL.NEB (ATROVENT) INH SCH ×5 (07:51→23:16)
[2018-07-05 08:05] VITALS: BP_SYST 105
[2018-07-05] MEDS: LEVOFLOXACIN 500 MG/D5W 100 ML IV SCH (08:11)
[2018-07-05 12:00] VITALS: BP_SYST 121
[2018-07-05 16:00] VITALS: BP_SYST 129
[2018-07-05 20:00] VITALS: BP_SYST 141
[2018-07-05 23:39] VITALS: BP_SYST 129
[2018-07-06] MEDS: ALBUTEROL SULFATE 0.083% 2.5 MG/3 ML VIAL.NEB INH SCH ×2 (03:00→07:35)
[2018-07-06] MEDS: IPRATROPIUM BROM 0.5 MG/2.5 ML VIAL.NEB (ATROVENT) INH SCH ×2 (03:00→07:35)
[2018-07-06] MEDS: INSULIN REGULAR, HUMAN 100 UNITS/ML, 10 ML VIAL (novoLIN R) SUBCUT PRN ×2 (06:32→11:39)
[2018-07-06] MEDS: LEVOFLOXACIN 500 MG/D5W 100 ML IV SCH (08:25)
[2018-07-06] MEDS: methylPREDNISolone SOD SUCC/PF 62.5 MG/ML VIAL IVP SCH (08:25)
[2018-07-06 08:38] VITALS: BP_SYST 112
[2018-07-06 11:57] VITALS: BP_SYST 126
[2018-07-06 12:15] VITALS: BP_SYST 129
== END 2018-07-06 13:45 | disposition home or self-care (01) | DRG 193 ==
LOC: SED 21:19 → STU 23:53 → SMU 07-05 12:25
PROVIDERS: ADMIT Internal Medicine Hospice and Palliative Medicine; ATTEND Internal Medicine Hospice and Palliative Medicine
DX: J18.9 Pneumonia, unspecified organism (principal); J96.21 Acute and chronic respiratory failure with hypoxia; J44.1 Chronic obstructive pulmonary disease with (acute) exacerbation; J90 Pleural effusion, not elsewhere classified; J44.0 Chronic obstructive pulmonary disease with (acute) lower respiratory infection; R65.10 Systemic inflammatory response syndrome (SIRS) of non-infectious origin without acute organ dysfunction; G47.33 Obstructive sleep apnea (adult) (pediatric); I10 Essential (primary) hypertension; J20.9 Acute bronchitis, unspecified; E11.9 Type 2 diabetes mellitus without complications; Z99.81 Dependence on supplemental oxygen; Z91.19 Patient's noncompliance with other medical treatment and regimen; Z87.891 Personal history of nicotine dependence; Z59.0 Homelessness; Z90.49 Acquired absence of other specified parts of digestive tract; Z98.49 Cataract extraction status, unspecified eye; Z79.899 Other long term (current) drug therapy
CPT/HCPCS: 36415; 36600; 71045; 80053; 82150-TC; 82550-TC; 82803-TC; 82962; 83605; 83690-TC; 84484; 85025; 85610-TC; 85730-TC; 87040-TC; 93005; 94640; 94760; J0696; J1815; J1956; J2930; J7613

== ENCOUNTER 2019-03-20 20:44 | Inpatient (IN) | payer OTHER, MEDICAID ==
[~2019-03-20] VITALS: Ht 154.9 cm; Wt 84.8 kg
[2019-03-20 20:44] VITALS: BP_SYST 134
[~2019-03-20 20:44] MED LIST changes: -BECL8.7A6 IH; -GLIP2.5T3 PO; +VIS10 PO
--- NOTE | 2019-03-20 20:44 | NUR ---
Pt placed to ER bed 03, to gown, to quality assurance monitor final. SPO2 85% RA. Pt placed on O2 at 2LPM/NC, SPO2 improves to 95%. Dr. Keen made aware. Pt report given to ABDIRIZAK Jennings.
--- NOTE | 2019-03-20 21:05 | NUR ---
2104 - Assumed care of pt. Pt is sitting up in bed, pt is A&OX4, resp mildly labored. PT states SOB and chest pressure x 3 days. Pt states hx of COPD, does not wear oxygen. Pt also states she has been living in her car x 3 years w/ her son. SOB worse w/ movement. VSS at this time.
--- NOTE | 2019-03-20 21:10 | NUR ---
2110 - ER at bedside examining patient.
[2019-03-20 21:27] LABS: BASOPHILS # (AUTO) 0.1 K/uL (0.0-0.2); BASOPHILS % (AUTO) 1.3 % (0.0-2.0); EOSINOPHILS # (AUTO) 0.3 K/uL (0.0-0.4); EOSINOPHILS % (AUTO) 3.1 % (0.0-4.0); HEMATOCRIT 37.8 % (36-48); HEMOGLOBIN 12.4 g/dL (12.0-16.0); LYMPHOCYTES # (AUTO) 2.3 K/uL (1.0-5.5); LYMPHOCYTES % (AUTO) 20.4 % (20.5-51.5); MEAN CORPUSCULAR HEMOGLOBIN 29 pg (27-31); MEAN CORPUSCULAR HGB CONC 33 % (32-36); MEAN CORPUSCULAR VOLUME 89 fL (79.0-98.0); MONOCYTES # (AUTO) 0.9 K/uL (0.0-1.0); MONOCYTES % (AUTO) 8.4 % (1.7-9.3); NEUTROPHILS # (AUTO) 7.5 K/uL (1.8-7.7); NEUTROPHILS % (AUTO) 66.8 % (40.0-70.0); PLATELET COUNT (AUTO) 199 K/uL (130-430); RED BLOOD CELL COUNT(AUTO) 4.22 MIL/uL (4.2-6.2); RED CELL DISTRIBUTION WIDTH 15.7 % (9.0-15.0); WHITE BLOOD COUNT (AUTO) 11.2 K/uL (4.8-10.8)
[2019-03-20] MEDS ORDERED: NACL 0.9% 1,000 ML IV ONE (21:30)
[2019-03-20] MEDS ORDERED: IPRATROPIUM/ALBUTEROL SULFATE 3 ML AMPUL.NEB (DUONEB) INH ONE (21:30)
[2019-03-20] MEDS ORDERED: methylPREDNISolone SOD SUCC/PF 62.5 MG/ML VIAL IVP ONE (21:30)
[2019-03-20 21:38] LABS: CALCIUM 8.9 mg/dL (8.4-11.0); CREATININE 1.01 mg/dL (0.55-1.30); POTASSIUM 3.9 mmol/L (3.5-5.1)
[2019-03-20 21:42] LABS: ALBUMIN 2.9 g/dL (3.4-4.8); PROTHROMBIN TIME 9.9 SECS (9.5-12.5); TOTAL BILIRUBIN 0.5 mg/dL (0.0-1.0)
[2019-03-20] MEDS ORDERED: GABA-531 PO (21:52)
[2019-03-20] MEDS ORDERED: GLIPIZIDE PO (21:52)
[2019-03-20] MEDS ORDERED: IPRA3AMP9 INH (21:52)
[2019-03-20] MEDS ORDERED: PIPERACILLIN/TAZO 3.375 GM in NS 50 ML IV ONE (22:15)
--- NOTE | 2019-03-20 22:50 | NUR ---
2250 - Pt states she feels much better. Resp even and unlabored. Vss.
--- NOTE | 2019-03-20 23:09 | NUR ---
2309 - Pt up to use restroom. Became SOB when walking to and from restroom.
[2019-03-20] MEDS ORDERED: PIPERACILLIN/TAZOBACTAM 3.375 GM/VIAL (ZOSYN) IV ONE (23:17)
--- NOTE | 2019-03-20 23:31 | NUR ---
2331 - Pt transferred to floor, room 116B. Transported w/ EMT and RN
--- NOTE | 2019-03-20 23:31 | NUR ---
2331 - Patient will be admitted to care of alida. Admitted to tele unit. Will go to room 116b. Belongings list completed. Summary report printed. Report will be given at bedside.
--- NOTE | 2019-03-20 23:46 | NUR ---
ADMIT NOTE Received pt from ER to the floor with a diagnosis of PNA. Admission process initiated. patient oriented to pain management, safety and call light-teach back done.
[2019-03-20 23:54] VITALS: BP_SYST 135
--- NOTE | 2019-03-21 00:05 | NUR ---
ROUNDS PATIENT IN BED, AWAKE, ALERT, ORIENTED, NOT IN DISTRESS, VITALS STABLE. DENIES ANY PAIN AND DISCOMFORT AT THIS TIME. ADMISSION ASSESSMENT DONE AND DOCUMENTED. SEE FLOWSHEET. PLAN OF CARE DISCUSSED AND PATIENT VERBALIZED UNDERSTANDING. NEEDS ATTENDED TO. SAFETY AND FALL PRECAUTION MEASURES IN PLACED. CALL LIGHT PLACED WITHIN REACH.
--- NOTE | 2019-03-21 02:15 | NUR ---
PATIENT RESTING: Patient resting quietly. No acute distress noted. Vital signs within normal range.
--- NOTE | 2019-03-21 04:13 | NUR ---
ROUNDS PATIENT ASLEEP, RESPIRATIONS EVEN AND UNLABORED, NO SIGNS OF ANY PAIN AND DISCOMFORT NOTED. WILL CONTINUE TO MONITOR.
[2019-03-21 05:58] VITALS: BP_SYST 135
--- NOTE | 2019-03-21 06:24 | NUR ---
CLOSING NOTES PATIENT AWAKE, VITALS STABLE, NO PAIN AND DISCOMFORT AT THIS TIME. ALL NEEDS ATTENDED TO. SAFETY MEASURES MAINTAINED. CALL LIGHT PLACED WITHIN REACH.
[2019-03-21 08:02] VITALS: BP_SYST 124
--- NOTE | 2019-03-21 08:05 | NUR ---
OPENING NOTE patient received resting in bed A&O x4, slight wheezing and cough noted, breathing even and unlabored on 2L nasal cannula, patient denies any acute distress or pain, IV is patent, educated patient on plan of care and call light system, will continue to monitor, safety precautions in place, call light within reach.
[2019-03-21] MEDS: cefTRIAXone 1 GM in D5W 50 ML IV SCH (08:24)
--- NOTE | 2019-03-21 10:15 | NUR ---
NOTES patient is resting in bed watching TV, assisted patient to use bedside commode, patient tolerated well, IVF infusing as ordered, will continue to monitor, safety precautions in place, call light within reach.
[2019-03-21] MEDS: AZITHROMYCIN 500 MG in NS 250 ML IV SCH (10:17)
[2019-03-21] MEDS ORDERED: cloNIDine HCL 0.1 MG TABLET PO PRN (10:45)
[2019-03-21] MEDS ORDERED: DEXTROSE 50% JECT 50 ML DISP.SYRIN IVP PRN (10:45)
[2019-03-21] MEDS ORDERED: hydrALAZINE HCL 20 MG/ML VIAL IVP PRN (10:45)
[2019-03-21] MEDS ORDERED: ALBUTEROL SULFATE 0.083% 2.5 MG/3 ML VIAL.NEB INH PRN (10:45)
[2019-03-21] MEDS ORDERED: ENALAPRILAT DIHYDRATE 1.25 MG/ML VIAL IVP PRN (10:45)
[2019-03-21] MEDS ORDERED: IPRATROPIUM BROM 0.5 MG/2.5 ML VIAL.NEB (ATROVENT) INH PRN (10:45)
[2019-03-21] MEDS ORDERED: methylPREDNISolone SOD SUCC/PF 62.5 MG/ML VIAL IVP ONE (11:00)
[2019-03-21] MEDS: ALBUTEROL SULFATE 0.083% 2.5 MG/3 ML VIAL.NEB INH SCH ×3 (11:08→19:55)
[2019-03-21] MEDS: IPRATROPIUM BROM 0.5 MG/2.5 ML VIAL.NEB (ATROVENT) INH SCH ×3 (11:08→19:55)
[2019-03-21] MEDS: INSULIN REGULAR, HUMAN 100 UNITS/ML, 10 ML VIAL (novoLIN R) SUBCUT PRN ×3 (11:32→23:40)
--- NOTE | 2019-03-21 11:41 | NUR ---
PAGED DR. MENENDEZ regarding results of ABG.
--- NOTE | 2019-03-21 11:47 | NUR ---
BLOOD SUGAR is 284, 6 units of regular insulin given per sliding scale.
[2019-03-21 12:07] VITALS: BP_SYST 130
--- NOTE | 2019-03-21 13:40 | NUR ---
NOTES patient is receiving bilateral lower extremity doppler at this time, no acute distress noted, breathing is even and unlabored on 2L nasal cannula, patient states she will eat after doppler exam, will continue to monitor, safety precautions in place, call light within reach.
[2019-03-21] MEDS: methylPREDNISolone SOD SUCC/PF 62.5 MG/ML VIAL IVP SCH ×2 (13:46→21:29)
[2019-03-21] MEDS: GABAPENTIN 300 MG CAPSULE PO SCH ×2 (15:38→21:28)
--- NOTE | 2019-03-21 15:57 | NUR ---
NOTES patient is resting in bed watching TV, assisted patient to use bedside commode, patient denies any acute distress or pain at this time, breathing even and unlabored on 2l nasal cannula, will continue to monitor, safety precautions in place, call light within reach.
[2019-03-21 16:10] VITALS: BP_SYST 111
--- NOTE | 2019-03-21 18:30 | NUR ---
CLOSING NOTES patient is resting in bed watching TV, patient tolerated dinner well, patient denies any acute distress or pain, breathing is even and unlabored on 2L nasal cannula, all needs were met throughout shift, will endorse report to oncoming nurse, safety precautions in place, call light within reach.
--- NOTE | 2019-03-21 19:30 | NUR ---
ROUNDS PATIENT RESTING COMFORTABLY IN BED, NOT IN DISTRESS, VITALS STABLE. DENIES ANY PAIN AND DISCOMFORT AT THIS TIME. ASSESSMENT DONE AND DOCUMENTED. NEEDS ATTENDED TO. SAFETY MEASURES IN PLACED. BED IN LOW AND LOCKED POSITION. CALL LIGHT PLACED WITHIN REACH.
[2019-03-21] MEDS: BUDESONIDE 0.5 MG/2 ML AMPUL.NEB INH SCH (20:14)
[2019-03-21] MEDS ORDERED: FLUTICASONE 500 mCg/SALMETEROL 50 mCg DISKUS W.DEV INH SCH (21:00)
--- NOTE | 2019-03-21 21:13 | NUR ---
MEDICATION DUE MEDICATIONS GIVEN ORDERED, TOLERATED WELL. WILL CONTINUE TO MONITOR.
--- NOTE | 2019-03-22 00:12 | NUR ---
PATIENT RESTING: Patient resting quietly. No acute distress noted. Vital signs within normal range.
[2019-03-22 00:19] VITALS: BP_SYST 120
[2019-03-22] MEDS: ALBUTEROL SULFATE 0.083% 2.5 MG/3 ML VIAL.NEB INH SCH ×4 (01:30→20:13)
[2019-03-22] MEDS: IPRATROPIUM BROM 0.5 MG/2.5 ML VIAL.NEB (ATROVENT) INH SCH ×4 (01:30→20:13)
--- NOTE | 2019-03-22 02:15 | NUR ---
ROUNDS PATIENT ASLEEP, NOT IN DISTRESS, NO SIGNS OF ANY PAIN AT THIS TIME. WILL CONTINUE TO MONITOR.
--- NOTE | 2019-03-22 04:17 | NUR ---
PATIENT RESTING: Patient resting quietly. No acute distress noted. Vital signs within normal range.
[2019-03-22] MEDS: methylPREDNISolone SOD SUCC/PF 62.5 MG/ML VIAL IVP SCH ×3 (05:18→21:43)
[2019-03-22] MEDS: INSULIN REGULAR, HUMAN 100 UNITS/ML, 10 ML VIAL (novoLIN R) SUBCUT PRN ×4 (06:23→23:16)
--- NOTE | 2019-03-22 06:50 | NUR ---
CLOSING NOTES PATIENT STABLE, ALL NEEDS ATTENDED TO, SAFETY MEASURES MAINTAINED. BED IN LOW AND LOCKED POSITION, CALL LIGHT PLACED WITHIN REACH.
[2019-03-22] MEDS: BUDESONIDE 0.5 MG/2 ML AMPUL.NEB INH SCH ×2 (07:42→20:19)
[2019-03-22 08:00] VITALS: BP_SYST 129
--- NOTE | 2019-03-22 08:00 | NUR ---
RN NOTE PATIENT IS RESTING IN BED, ALERT ORIENTED X4, PATIENT WAS ASSESSED, VITAL SIGNS ARE STABLE. PATIENT DENIES PAIN OR DISCOMFORT. BED AT LOW POSITION AND CALL LIGHT WITHIN REACH, WILL CONTINUE TO MONITOR AND WILL PASS MED AT 0900
[2019-03-22] MEDS: cefTRIAXone 1 GM in D5W 50 ML IV SCH (08:19)
[2019-03-22] MEDS: GABAPENTIN 300 MG CAPSULE PO SCH ×3 (08:22→21:43)
--- NOTE | 2019-03-22 08:35 | NUR ---
CONSULT PULMONOLOGY COPD DR CORADO [phone] DR MAYA CHEMICAL ETCH OPERATOR S/W MIGUE EXCHANGE
[2019-03-22] MEDS: AZITHROMYCIN 500 MG in NS 250 ML IV SCH (09:40)
--- NOTE | 2019-03-22 10:00 | NUR ---
RN NOTE PATIENT IS RESTING IN BED, ALERT ORIENTED X4, PATIENT WAS GIVEN HER MEDIATION AND PATIENT WAS GIVEN A BED BATH , WILL CONTINUE TO MONITOR.
[2019-03-22] MEDS ORDERED: MAGNESIUM SULFATE 50 ML IV ONE (11:30)
--- NOTE | 2019-03-22 12:00 | NUR ---
RN NOTE PATIENT BLOOD SUGAR WAS MEASURED TO BE 224MG/DL. PATIENT GOT 4 UNITS OF REGULAR INSULIN, PATIENT DENIES PAIN OR DISCOMFORT.
[2019-03-22 12:02] VITALS: BP_SYST 131
--- NOTE | 2019-03-22 14:00 | NUR ---
RN NOTE PATIENT IS RESTING IN BED, DENIES PAIN OR DISCOMFORT. PATIENT WAS EDUCATED ABOUT HIS DISEASE PROCESS.
--- NOTE | 2019-03-22 16:00 | NUR ---
RN NOTE PATIENT IS SLEEPING IN BED NO ISSUE,
[2019-03-22 16:02] VITALS: BP_SYST 115
--- NOTE | 2019-03-22 18:00 | NUR ---
RN CLOSING NOTE PATIENT IS RESTING IN BED, DENIES PAIN OR DISCOMFORT. PATIENT BLOOD SUGAR WAS 275MG/DL PATIENT GOT HER REGULAR INSULIN COVERAGE. PATIENT WAS THEN SERVED HER DINNER. WILL ENDORSE TO NEXT SHIFT.
--- NOTE | 2019-03-22 19:30 | NUR ---
ROUNDS PATIENT IN BED, WATCHING TV, NOT IN DISTRESS, VITALS STABLE. DENIES ANY PAIN AT THIS TIME. ASSESSMENT DONE AND DOCUMENTED. SEEF FLOWSHEET. NEEDS ATTENDED TO. BED IN LOW AND LOCKED POSITION. CALL LIGHT PLACED WITHIN REACH.
--- NOTE | 2019-03-22 21:40 | NUR ---
MEDICATION DUE MEDICATIONS GIVEN ORDERED, TOLERATED WELL. WILL CONTINUE TO MONITOR.
--- NOTE | 2019-03-23 00:12 | NUR ---
PATIENT RESTING: Patient resting quietly. No acute distress noted. Vital signs within normal range.
[2019-03-23] MEDS: IPRATROPIUM BROM 0.5 MG/2.5 ML VIAL.NEB (ATROVENT) INH SCH ×4 (01:00→19:30)
[2019-03-23] MEDS: ALBUTEROL SULFATE 0.083% 2.5 MG/3 ML VIAL.NEB INH SCH ×4 (01:00→19:30)
--- NOTE | 2019-03-23 02:13 | NUR ---
ROUNDS PATIENT ASLEEP, RESPIRATIONS EVEN AND UNLABORED, WILL CONTINUE TO MONITOR.
[2019-03-23] MEDS: methylPREDNISolone SOD SUCC/PF 62.5 MG/ML VIAL IVP SCH (05:23)
[2019-03-23] MEDS: INSULIN REGULAR, HUMAN 100 UNITS/ML, 10 ML VIAL (novoLIN R) SUBCUT PRN ×4 (06:14→23:35)
[2019-03-23] MEDS: BUDESONIDE 0.5 MG/2 ML AMPUL.NEB INH SCH ×2 (07:27→19:30)
[2019-03-23 08:04] VITALS: BP_SYST 100
--- NOTE | 2019-03-23 08:10 | NUR ---
OPENING NOTES patient received resting in bed A&O x4, breathing is even and unlabored on room air, IVF infusing as ordered, no acute distress or pain is noted at this time, MARIE draining well, educated patient on plan of care and call light system, will continue to monitor, safety precautions in place, call light within reach. Addendum: 03/23/19 at 0989 by Caprice Ramirez RN WRONG PATIENT DISREGARD NOTE.
--- NOTE | 2019-03-23 08:11 | NUR ---
OPENING NOTE patient received resting in bed A&O x4, breathing is even and unlabored on 2L nasal cannula, patient denies any acute distress or pain at this time, educated patient on plan of care and call light system, will continue to monitor, safety precautions in place, call light within reach.
[2019-03-23] MEDS: cefTRIAXone 1 GM in D5W 50 ML IV SCH (08:21)
[2019-03-23] MEDS: GABAPENTIN 300 MG CAPSULE PO SCH ×3 (08:21→22:12)
[2019-03-23] MEDS: AZITHROMYCIN 500 MG in NS 250 ML IV SCH (09:37)
--- NOTE | 2019-03-23 10:20 | NUR ---
NOTES patient is resting in bed watching tv, patient denies any acute distress or pain at this time, breathing is even and unlabored on 2L nasal cannula, will continue to monitor, safety precautions in place, call light within reach.
--- NOTE | 2019-03-23 11:27 | NUR ---
Php Wordpress Developer Notes: PHARMACY INFORMATICIST met with pt at bedside. PHARMACY INFORMATICIST confirmed demographic information. Pt states she has been homeless for 3 years now and has been living in her car with her son, his girlfriend and 2 dogs. Pt states she became homeless when she broke up with her of 50 years. Pt states she is independent with ADL's and does not use any type of DME. Pt states she sees her PCP every 3 months. Pt identifies her sister from [place] as her support system. Pt states her goal is to get an apartment that is cheap or go to her sister in [place], but prefers to take her son (has a learning disability and DJD) with her. Pt states she receives $760/month from SSI and $1500 from spousal support and has a car payment with insurance of $525/month. Pt states she has searched for apartments all the way to [place] but has difficulty finding an apartment because of her bad credit. Pt states she had services with [facility] and was going to get an apartment with their help, but the apartment turned her down due to credit issues. PHARMACY INFORMATICIST provided pt with homeless assistance resources and offered clothing. PHARMACY INFORMATICIST attached homeless waiver to chart. SS will remain available when needed.
--- NOTE | 2019-03-23 12:04 | NUR ---
BLOOD SUGAR is 306 at this time, insulin given per sliding scale.
[2019-03-23 12:28] VITALS: BP_SYST 125
--- NOTE | 2019-03-23 14:25 | NUR ---
NOTES patient is resting in bed with eyes closed, no acute distress or pain is noted, breathing is even and unlabored on 2L nasal cannula, will continue to monitor, safety precautions in place, call light within reach.
[2019-03-23] MEDS: methylPREDNISolone SOD SUCC 40 MG/ML VIAL IVP SCH ×2 (14:35→22:12)
--- NOTE | 2019-03-23 16:25 | NUR ---
NOTES assisted patient to use bathroom, patient tolerated well, patient denies any acute distress or pain, breathing is even and unlabored on 2L nasal cannula, will continue to monitor, safety precautions in place, call light within reach.
[2019-03-23 16:45] VITALS: BP_SYST 130
--- NOTE | 2019-03-23 17:00 | NUR ---
SPOKE TO DR CORADO per , patient still had wheezes and cough this morning, stated, 'if the patient feels she is okay to be discharged then it is okay with me,' per patient she states she does not feel ready to be discharged and feels more comfortable staying another day.
--- NOTE | 2019-03-23 18:39 | NUR ---
CLOSING NOTE patient is resting in bed watching tv, no acute distress or pain is noted at this time, breathing is even and unlabored on 2L nasal cannula, all needs were met throughout shift, will endorse report to oncoming nurse, safety precautions in place, call light within reach.
--- NOTE | 2019-03-23 19:30 | NUR ---
OPENING NOTE Received report from Caprice. Patient resting in bed awake, alert, oriented x4. Breathing unlabored and even on 2L oxygen via NC. No signs of distress, no needs at this time. Fall and safety precautions in place. Bed in lowest position, brake on, call light within reach. Will continue to monitor.
[2019-03-23 20:00] VITALS: BP_SYST 143
--- NOTE | 2019-03-23 22:31 | NUR ---
Patient is desating when oxygen is removed. Patient's O2 went down to 86% off of oxygen and only on room air. Patient stated she felt short of breath when oxygen was removed. Auditory wheezes heard. Placed patient back on oxygen via NC at 2L. Patient's oxygen went back up to 92%. Informed patient I would talk to the day shift nurse about her low oxygen saturation when on room air and to follow up with the MD. Patient may need oxygen out side of the hospital. Patient is homeless and lives in her car. client services representative already met with patient, but no other things have been done to address her oxygen desaturation at this time.
--- NOTE | 2019-03-23 23:37 | NUR ---
Blood sugar: 338. Administered 8 units of regular insulin per PRN insulin sliding scale.
[2019-03-24] MEDS: ALBUTEROL SULFATE 0.083% 2.5 MG/3 ML VIAL.NEB INH SCH ×4 (00:08→20:17)
[2019-03-24] MEDS: IPRATROPIUM BROM 0.5 MG/2.5 ML VIAL.NEB (ATROVENT) INH SCH ×4 (00:09→20:17)
[2019-03-24 00:36] VITALS: BP_SYST 112
--- NOTE | 2019-03-24 01:04 | NUR ---
Patient resting in bed with eyes closed. Breathing unlabored and even on 2L oxygen via NC. No signs of distress, no needs at this time. Fall and safety precautions in place. Bed in lowest position, brake on, call light within reach. Will continue to monitor.
[2019-03-24] MEDS: methylPREDNISolone SOD SUCC 40 MG/ML VIAL IVP SCH ×3 (05:25→21:13)
[2019-03-24] MEDS: INSULIN REGULAR, HUMAN 100 UNITS/ML, 10 ML VIAL (novoLIN R) SUBCUT PRN ×4 (05:29→23:51)
--- NOTE | 2019-03-24 05:30 | NUR ---
Med pass. Blood sugar: 316. Administered 8 units of regular insulin per PRN insulin sliding scale.
--- NOTE | 2019-03-24 06:50 | NUR ---
CLOSING NOTE Patient resting in bed with eyes closed. Breathing unlabored and even on 2L oxygen via NC. No signs of distress, no needs at this time. Fall and safety precautions in place. Bed in lowest position, brake on, call light within reach. Will endorse cares to day shift nurse.
--- NOTE | 2019-03-24 07:40 | NUR ---
Opening Note received bedside SBAR report from warehouse supervisor 3rd shift RN, patient resting in bed, no acute distress noted, patient receiving breathing treatment at this time, patient educated on use of call light and asked to call for assistance, patient verbalized understanding, call light in reach, bed in low and locked position, bed alarm on.
[2019-03-24 08:00] VITALS: BP_SYST 129
[2019-03-24] MEDS: BUDESONIDE 0.5 MG/2 ML AMPUL.NEB INH SCH ×2 (08:19→20:31)
[2019-03-24] MEDS: cefTRIAXone 1 GM in D5W 50 ML IV SCH (09:20)
[2019-03-24] MEDS: GABAPENTIN 300 MG CAPSULE PO SCH ×3 (09:20→21:12)
--- NOTE | 2019-03-24 09:24 | NUR ---
Oxygen Therapy patients O2sat 84% on room air, patient placed back on 2L O2 nasal cannula, O2sat 93% on 2L O2, no acute distress noted, patient educated on use and side effects of medications, patient verbalized understanding, tolerated medication administration well.
[2019-03-24] MEDS: AZITHROMYCIN 500 MG in NS 250 ML IV SCH (10:17)
--- NOTE | 2019-03-24 11:06 | NUR ---
RN Rounds patient resting in bed, no acute distress noted, no redness or swelling noted at IV site, zithromax infusing well.
--- NOTE | 2019-03-24 11:57 | NUR ---
PAGED PAGED MICKEY HOOPER AT [phone] SPOKE WITH YULIYA.
--- NOTE | 2019-03-24 12:02 | NUR ---
Physician Paged Dr. England paged regarding blood glucose 414, awaiting call back, patient in bed, no acute distress noted, patient denies any pain.
[2019-03-24 12:06] VITALS: BP_SYST 123
--- NOTE | 2019-03-24 12:16 | NUR ---
Spoke with Dr. England spoke with Dr. England, informed him of blood glucose 414 and that 12 units novolin R were given, no new orders.
--- NOTE | 2019-03-24 12:24 | NUR ---
Dietitian Recommendations * [facility] per LP, RD Please refer to Nutrition Assessment for details.
--- NOTE | 2019-03-24 13:04 | NUR ---
RN Rounds patient sleeping in bed, respirations even and unlabored on 2L nasal cannula, no acute distress noted.
--- NOTE | 2019-03-24 15:16 | NUR ---
showering patient showering with assistance from CLERK OF COURT, patient tolerating well, no acute distress noted.
[2019-03-24 16:01] VITALS: BP_SYST 121
--- NOTE | 2019-03-24 17:25 | NUR ---
Ambulating in gr patient assisted to ambulate in gr on 2L O2, steady gait noted, patient able to walk from [place] nurses station to east nurses station, patient assisted back to bed on 2L O2, no acute distress noted.
[2019-03-24 18:03] VITALS: BP_SYST 121
--- NOTE | 2019-03-24 19:25 | NUR ---
Closing Note bedside SBAR report given to receiving RN, patient resting in bed, no acute distress noted, patient educated on use of call light and asked to call for assistance, patient verbalized understanding, call light in reach, bed in low and locked position, bed alarm on, care endorsed to assistant shift supervisor RN.
--- NOTE | 2019-03-24 19:57 | NUR ---
Opening notes Received report. Patient resting comfortably in bed. No signs of distress noted. Breathing even and unlabored. Denies any pain or discomfort. IV is patent and intact, no signs of infiltration noted. No needs at this time. Call light with the patient. Safety precautions in place.
[2019-03-24 20:22] VITALS: BP_SYST 115
--- NOTE | 2019-03-24 21:15 | NUR ---
Medications Scheduled medications given, educated the action and side effects of medications. Patient verbalized understanding and tolerated well. No signs of allergic reaction noted. Provided patient with jello and crackers per patient request. No other needs at this time. Call light with the patient. Safety precautions in place.
--- NOTE | 2019-03-25 | NUR ---
Accucheck 335. Insulin given per sliding scale. Educated the action and side effects of medication. Patient verbalized understanding and tolerated well. No other needs. Patient went back to sleep. Call light with the patient. Safety precautions in place.
[2019-03-25 00:09] VITALS: BP_SYST 120
[2019-03-25] MEDS: IPRATROPIUM BROM 0.5 MG/2.5 ML VIAL.NEB (ATROVENT) INH SCH ×4 (01:00→19:53)
[2019-03-25] MEDS: ALBUTEROL SULFATE 0.083% 2.5 MG/3 ML VIAL.NEB INH SCH ×4 (01:00→19:53)
--- NOTE | 2019-03-25 02:00 | NUR ---
Sleeping Patient sleeping, no signs of distress noted. Breathing is even and unlabored, no sob noted. Call light with the patient. Safety precautions in place.
--- NOTE | 2019-03-25 05:00 | NUR ---
Sleeping Patient sleeping at this time. No signs of distress noted. Breathing even and unlabored. Call light with the patient. Safety precautions in place.
[2019-03-25] MEDS: methylPREDNISolone SOD SUCC 40 MG/ML VIAL IVP SCH ×3 (05:54→21:12)
[2019-03-25] MEDS: INSULIN REGULAR, HUMAN 100 UNITS/ML, 10 ML VIAL (novoLIN R) SUBCUT PRN ×4 (06:01→23:33)
--- NOTE | 2019-03-25 06:19 | NUR ---
Closing notes Patient resting comfortably in bed. Denies SOB. IV patent and intact, no signs of infiltration noted. All needs met throughout the shift. call light with the patient. Safety precautions in place. Will endorse care to day shift RN.
--- NOTE | 2019-03-25 07:26 | NUR ---
Opening Note received bedside SBAR report from night worker RN, patient resting in bed, patient denies any pain, no acute distress noted, patient educated on use of call light and asked to call for assistance, patient verbalized understanding, call light in reach, bed in low and locked position, bed alarm on.
[2019-03-25] MEDS: BUDESONIDE 0.5 MG/2 ML AMPUL.NEB INH SCH ×2 (07:33→20:05)
[2019-03-25 08:00] VITALS: BP_SYST 115
[2019-03-25] MEDS: cefTRIAXone 1 GM in D5W 50 ML IV SCH (09:26)
[2019-03-25] MEDS: GABAPENTIN 300 MG CAPSULE PO SCH ×3 (09:26→21:12)
--- NOTE | 2019-03-25 09:59 | NUR ---
O2 Sat O2 Sat 88% on room air, patient placed back on 2L nasal cannula, O2 Sat now 94%, reported findings to Dr. Conn, new orders received, verified with read back.
[2019-03-25] MEDS: AZITHROMYCIN 500 MG in NS 250 ML IV SCH (10:59)
--- NOTE | 2019-03-25 11:48 | NUR ---
RN Rounds patient resting in bed, no acute distress noted, patient tolerating O2 therapy well on 2L nasal cannula, respirations even and unlabored, patient denies any shortness of breath or chest pain.
[2019-03-25 12:01] VITALS: BP_SYST 107
--- NOTE | 2019-03-25 14:20 | NUR ---
RN Rounds patient resting in bed, no acute distress noted, patient denies any shortness of breath or chest pain.
[2019-03-25 16:12] VITALS: BP_SYST 112
--- NOTE | 2019-03-25 16:57 | NUR ---
Ambulated in gr patient ambulating in gr with minimal assistance on 2L O2, steady gait noted, patient assisted back to bed, resting in bed on 2L O2, no acute distress noted.
--- NOTE | 2019-03-25 19:13 | NUR ---
Closing Note bedside SBAR report given to receiving RN, patient resting in bed, no acute distress noted, educated on use of call light and asked to call for assistance, patient verbalized understanding, call light in reach, bed in low and locked position, bed alarm on, care endorsed.
[2019-03-25 20:00] VITALS: BP_SYST 127
--- NOTE | 2019-03-25 20:00 | NUR ---
Initial note: Received report from dayshift RN. Patient is resting in bed, no distress. Respirations are even and unlabored on 2L NC. IV sites to left hand and right forearm are patent and benign. Bed alarm refused despite education. Call light with patient, will continue monitoring.
--- NOTE | 2019-03-25 23:37 | NUR ---
Blood sugar: Patient's blood sugar is 363. Administered 10 units regular insulin subcutaneously per sliding scale, dosage verified with 2nd RN. Education provided regarding indications and side effects, understanding verbalized. Will continue to monitor.
[2019-03-26] VITALS (7 sets, daily range): BP systolic 97–120
--- NOTE | 2019-03-26 02:34 | NUR ---
Rounds: Patient is asleep in bed, no acute distress. Breathing is even and unlabored on 2L NC. Call light is with patient. Will continue to monitor.
[2019-03-26] MEDS: methylPREDNISolone SOD SUCC 40 MG/ML VIAL IVP SCH ×2 (05:16→18:05)
[2019-03-26] MEDS: INSULIN REGULAR, HUMAN 100 UNITS/ML, 10 ML VIAL (novoLIN R) SUBCUT PRN ×4 (05:25→23:30)
--- NOTE | 2019-03-26 05:33 | NUR ---
Closing note: Patient is resting in bed, no distress. Respirations are even and unlabored on 2L NC. Blood sugar this AM is 272, administered 6 units regular insulin per sliding scale. All needs met. Will endorse to dayshift RN.
[2019-03-26] MEDS: ALBUTEROL SULFATE 0.083% 2.5 MG/3 ML VIAL.NEB INH SCH ×3 (07:12→20:32)
[2019-03-26] MEDS: BUDESONIDE 0.5 MG/2 ML AMPUL.NEB INH SCH ×2 (07:13→20:32)
[2019-03-26] MEDS: IPRATROPIUM BROM 0.5 MG/2.5 ML VIAL.NEB (ATROVENT) INH SCH ×3 (07:13→20:37)
--- NOTE | 2019-03-26 07:45 | NUR ---
INITIAL NOTE RECEIVED PT IN BED, NO S/S OF DISTRESS OR SOB NOTED, PT HAS NO C/O PAIN AT THIS TIME, PT IN STABLE CONDITION, PT AAOX4, VERBAL. IV CATHETERS PATENT, NO SIGNS OF INFECTION OR INFILTRATION NOTED. BED AT LOWEST POSITION, CALL LIGHT WITHIN REACH, WILL CONTINUE TO MONITOR PT FOR ANY CHANGES, FALL AND SAFETY PRECAUTIONS IN PLACE. EDUCATED PT ON USE OF INCENTIVE SPIROMETER, PT TO USE 10 TIMES AN HOUR WHILE AWAKE, PT VERBALIZED UNDERSTANDING, PT AT 1100ML. PT HAS OXYGEN 2 LITERS VIA NASAL CANNULA, SATURATION OF 94%. PT REFUSED TO HAVE SCD'S IN PLACE, EDUCATED PT ON IMPORTANCE TO PREVENT DVT, PT VERBALIZED UNDERSTANDING BUT CONTINUES TO REFUSE.
[2019-03-26] MEDS: cefTRIAXone 1 GM in D5W 50 ML IV SCH (08:31)
[2019-03-26] MEDS: GABAPENTIN 300 MG CAPSULE PO SCH ×3 (08:31→20:01)
--- NOTE | 2019-03-26 09:45 | NUR ---
Social Service Note: COLORIST DYER met with pt and pt's title insurance agent at bedside. Pt confirmed that she will be returning to her car upon discharge. Pt did provide the address of her granddaughter, Allison Anand is willing to allow pt to use her address for delivery of DME ([address], [place] [address] ). Pt did state that she has a portable O2 tank in her car from [employer]. COLORIST DYER suggested title insurance agent reach out to [facility] to see if they would provide pt her ongoing O2. commercial intelligence manager stated that other DME companies did not want to provide O2 to pt due to pt living in her car. COLORIST DYER will remain available for support and will follow up as needed.
--- NOTE | 2019-03-26 10:22 | NUR ---
ROUNDS PT IN BED, NO S/S OF DISTRESS OR SOB NOTED, PT HAS NO C/O PAIN AT THIS TIME, PT IN STABLE CONDITION, PT WATCHING TV, WILL CONTINUE TO MONITOR PT FOR ANY CHANGES.
--- NOTE | 2019-03-26 11:54 | NUR ---
patient will be discharge, patient is homeless returning to prior living situation (lives in car). Nebulizer was delivered to bedside, O2 etank will be deliver to bedside by August . Informed patient that she needs to have someone bring the etank she has in her car so they may replace it. for status of deliver of O2 call [phone] press option 4 and then option 1.
--- NOTE | 2019-03-26 12:04 | NUR ---
ROUNDS PT IN BED, NO S/S OF DISTRESS OR SOB NOTED, PT HAS NO C/O PAIN AT THIS TIME, PT IN STABLE CONDITION, PT RESTING COMFORTABLY, WILL CONTINUE TO MONITOR PT FOR ANY CHANGES.
--- NOTE | 2019-03-26 14:46 | NUR ---
[facility] [employer] WAS CALLED TO F/U THE O2 TANK DELIVERY. SPOKE TO ЕКАТЕРИНА AND WAS TOLD THAT O2 DELIVERY WAS SUPPOSED TO BE AT [facility] INITIALLY, BUT JOSE A [employer]BR[employer] ARTIST TODAY ARRANGED THE DELIVERY TO BE AT [facility] BEDSIDE WITH A TRADE OF AN EMPTY TANK FROM THE PT. WILL CALL [facility] 30 - 60 MINS TO GET THE ETA OF O2 TANK DELIVERY.
--- NOTE | 2019-03-26 16:11 | NUR ---
[facility] WAS CALLED TO GET AN ETA FOR O2 TANK DELIVERY. SPOKE TO RICKY AND GAVE ME [phone].
--- NOTE | 2019-03-26 18:32 | NUR ---
CLOSING NOTE PT IN BED, NO S/S OF DISTRESS OR SOB NOTED, PT HAS NO C/O PAIN AT THIS TIME, PT IN STABLE CONDITION, PT AAOX4, VERBAL. IV CATHETERS PATENT, NO SIGNS OF INFECTION OR INFILTRATION NOTED. BED AT LOWEST POSITION, CALL LIGHT WITHIN REACH, WILL ENDORSE CARE OF PT TO INCOMING NURSE, FALL AND SAFETY PRECAUTIONS IN PLACE. EDUCATED PT ON USE OF INCENTIVE SPIROMETER, PT AT 1100ML. PT HAS OXYGEN 2 LITERS VIA NASAL CANNULA, SATURATION OF 94%. PT CONTINUES TO REFUSE TO HAVE SCD'S IN PLACE, EDUCATION PROVIDED. PT WAITING FOR THE DELIVERY OF HER OXYGEN AROUND 7:15 TO 9:15. CHARGE NURSE MADE AWARE.
--- NOTE | 2019-03-26 19:29 | NUR ---
Initial note: Received report from dayshift RN. Patient is awake in bed, no distress. Tolerating O2 2L via NC. IV sites to left hand and right forearm are patent and benign. Bed alarm refused despite education. Call light with patient, will continue monitoring.
--- NOTE | 2019-03-26 20:26 | NUR ---
Note: Portable O2 tank has been delivered to patient's bedside. Per patient, her son is unable to milk pickup driver the patient until 1000 tomorrow. Patient lives in a car with her son, and her son is the only person who can pick her up at discharge. Will notify global security architect.
--- NOTE | 2019-03-26 23:34 | NUR ---
Blood sugar: Patient's blood sugar is 378. Administered 10 units regular insulin per sliding scale. Call light with patient, will continue monitoring.
[2019-03-27] MEDS: IPRATROPIUM BROM 0.5 MG/2.5 ML VIAL.NEB (ATROVENT) INH SCH ×2 (01:35→07:47)
[2019-03-27] MEDS: ALBUTEROL SULFATE 0.083% 2.5 MG/3 ML VIAL.NEB INH SCH ×2 (01:35→07:47)
--- NOTE | 2019-03-27 02:30 | NUR ---
Rounds: Patient is asleep, no distress. Breathing is even, unlabored on 2L NC. Call light with patient, will continue to monitor patient.
[2019-03-27] MEDS: INSULIN REGULAR, HUMAN 100 UNITS/ML, 10 ML VIAL (novoLIN R) SUBCUT PRN (05:29)
--- NOTE | 2019-03-27 05:42 | NUR ---
Closing note: Patient is resting in bed, no acute distress. Receiving O2 via 2L NC. Blood sugar this AM is 306, administered 8 units regular insulin per sliding scale. All needs met. Will endorse care to dayshift RN.
[2019-03-27] MEDS: methylPREDNISolone SOD SUCC 40 MG/ML VIAL IVP SCH (06:03)
[2019-03-27] MEDS: BUDESONIDE 0.5 MG/2 ML AMPUL.NEB INH SCH (07:47)
[2019-03-27 07:57] VITALS: BP_SYST 129
--- NOTE | 2019-03-27 08:00 | NUR ---
Note Pt sitting on side of bed eating her breakfast. No SOB/resp distress or pain/discomfort noted at this time. Pt has O2 at 2L/nc at this time. Pt has her O2 tank and nebulizer for home at bedside. Pt's IV in right and left hand are intact and patent. No needs noted at this time. Call light within reach.
[2019-03-27] MEDS: cefTRIAXone 1 GM in D5W 50 ML IV SCH (09:19)
[2019-03-27] MEDS: GABAPENTIN 300 MG CAPSULE PO SCH (09:19)
--- NOTE | 2019-03-27 10:00 | NUR ---
Note Pt ambulated to restroom for self hygiene care. Pt received her breathing treatment at bedside as well. Pt's 2 IV's in right and left hand were dc'd. sites benign and no swelling/bleeding/drainage or tenderness at site noted. Pt was given discharge instrutions and prescriptions. Questions and concerns were answered at this time. Pt packed all her belongings and checked side table and drawers for belongings as well at this time. No needs noted at this time. Call light within reach. Dr England on the floor at this time.
--- NOTE | 2019-03-27 11:15 | NUR ---
Note Pt off the floor to her private car with family.
--- NOTE | 2019-03-27 11:15 | NUR ---
Note Pt off the floor via wheelchair with all her belongings,discharge paperwork/prescription/O2 tank and nebulizer. Pt stable - no SOB/resp distress or pain/discomfort noted. Pt had her O2 tubing connected to home O2 tank at this time.
[2019-03-27 12:54] VITALS: BP_SYST 125
--- NOTE | 2019-04-09 10:01 | NUR ---
Discharge Follow Up Phone Call SENIOR QUALITATIVE RESEARCHER phoned patient, , on 04/02/19, 04/07/19 and 04/09/19 and left voicemail messages with reminder to make follow up appointment, offer of assistance, and Social Service contact information. No further calls will be made.
== END 2019-03-27 11:15 | disposition home or self-care (01) | DRG 189 ==
LOC: SED 20:44 → STU 23:25 → SMU 03-21 11:13
PROVIDERS: ADMIT Internal Medicine; ATTEND Internal Medicine
DX: J96.01 Acute respiratory failure with hypoxia (principal); J44.1 Chronic obstructive pulmonary disease with (acute) exacerbation; J98.11 Atelectasis; J44.0 Chronic obstructive pulmonary disease with (acute) lower respiratory infection; E11.40 Type 2 diabetes mellitus with diabetic neuropathy, unspecified; I10 Essential (primary) hypertension; Z82.49 Family history of ischemic heart disease and other diseases of the circulatory system; Z83.3 Family history of diabetes mellitus; Z87.891 Personal history of nicotine dependence; Z59.0 Homelessness; Z79.899 Other long term (current) drug therapy
CPT/HCPCS: 36415; 36600; 71045; 80053; 82803-TC; 82962; 83605; 83880; 84484; 85025; 85379; 85610-TC; 85730-TC; 87040-TC; 87081; 93005; 93970; 94640; 94760; 96365; 96375; 99285; G0378; J0456; J0696; J1030; J1815; J2543; J2930; J3475; J7050; J7060; J7613; J7620; J7626

== ENCOUNTER 2019-05-20 20:41 | Inpatient (IN) | payer OTHER, MEDICAID ==
[~2019-05-20] VITALS: Ht 154.9 cm; Wt 81.6 kg
[~2019-05-20 20:41] MED LIST changes: +GABA-531 PO; +GLIPIZIDE PO; +IPRA3AMP9 INH; -VIS10 PO
--- NOTE | 2019-05-20 21:05 | NUR ---
Placed in room 2 . Placed on hall monitor, blood pressure machine and pulse oximeter. To gown for exam. Side rails up.
--- NOTE | 2019-05-20 21:10 | NUR ---
ER Dr. Holden at bedside examining patient.
--- NOTE | 2019-05-20 21:15 | NUR ---
Pt BIB son C/O elevated blood sugar. Son states yesterday she ate "alot of sweets and over did it". Pt's skin is warm to the touch and blood sugar via venous draw is 482. Pt is alert and oriented. Denies any other complaints at this time. Will continue to monitor.
[2019-05-20 21:22] VITALS: BP_SYST 139
[2019-05-20] MEDS ORDERED: NACL 0.9% 2,000 ML IV ONE (21:30)
--- NOTE | 2019-05-20 21:30 | NUR ---
# 20 gauge angiocath placed to RT AC. Use of asceptic technique. Opsite placed over site. Blood return noted. Blood for lab drawn from site. Flushed with 10 cc of normal saline. No evidence of infiltration noted. Patient tolerated well.
--- NOTE | 2019-05-20 21:38 | NUR ---
Radiology at bedside for xray
[2019-05-20 21:42] LABS: BASOPHILS # (AUTO) 0.1 K/uL (0.0-0.2); BASOPHILS % (AUTO) 0.8 % (0.0-2.0); EOSINOPHILS % (AUTO) 0.1 % (0.0-4.0); HEMATOCRIT 44.2 % (36-48); HEMOGLOBIN 14.6 g/dL (12.0-16.0); LYMPHOCYTES # (AUTO) 1.1 K/uL (1.0-5.5); LYMPHOCYTES % (AUTO) 7.6 % (20.5-51.5); MEAN CORPUSCULAR HEMOGLOBIN 30 pg (27-31); MEAN CORPUSCULAR HGB CONC 33 % (32-36); MEAN CORPUSCULAR VOLUME 92 fL (79.0-98.0); MONOCYTES # (AUTO) 0.6 K/uL (0.0-1.0); MONOCYTES % (AUTO) 4.2 % (1.7-9.3); NEUTROPHILS # (AUTO) 12.5 K/uL (1.8-7.7); NEUTROPHILS % (AUTO) 87.3 % (40.0-70.0); PLATELET COUNT (AUTO) 182 K/uL (130-430); RED BLOOD CELL COUNT(AUTO) 4.81 MIL/uL (4.2-6.2); RED CELL DISTRIBUTION WIDTH 14.4 % (9.0-15.0); WHITE BLOOD COUNT (AUTO) 14.4 K/uL (4.8-10.8)
[2019-05-20 21:56] LABS: CALCIUM 9.3 mg/dL (8.4-11.0); CREATININE 1.22 mg/dL (0.55-1.30); POTASSIUM 4.3 mmol/L (3.5-5.1)
[2019-05-20 21:58] LABS: PROTHROMBIN TIME 10.4 SECS (9.5-12.5)
[2019-05-20 22:09] LABS: ALBUMIN 3.1 g/dL (3.4-4.8); TOTAL BILIRUBIN 1.1 mg/dL (0.0-1.0)
[2019-05-20] MEDS ORDERED: LEVOFLOXACIN 500 MG/D5W 100 ML IV ONE (22:15)
[2019-05-20] MEDS ORDERED: NS 500 ML IV ONE (23:15)
[2019-05-20] MEDS ORDERED: INSULIN REGULAR, HUMAN 10 UNITS/0.1 ML INJ IVP ONE (23:15)
[2019-05-20] MEDS ORDERED: IOHEXOL 350 mgI/mL, 150 ML INFUS..BTL IV ONE (23:34)
--- NOTE | 2019-05-20 23:39 | NUR ---
Patient transported to radiology via gurney for CT with contrast, consent signed prior to transport, accompanied by rad staff.
[2019-05-21] VITALS (7 sets, daily range): BP systolic 89–156
--- NOTE | 2019-05-21 | NUR ---
Pt returned from CT in stable condition. Will continue to monitor.
--- NOTE | 2019-05-21 | NUR ---
José Antonio howell in [facility] - 05/21/19 at 0037 by [email or web address] Medication reconciliation unable to be obtained. Pt unable to verbalize the medications she takes at this time.
--- NOTE | 2019-05-21 00:10 | NUR ---
Pt's updated blood sugar level is 353 after 10 units of insulin given. Dr. Holden notified
--- NOTE | 2019-05-21 00:31 | NUR ---
# 16 FR Lieberman catheter with use of sterile technique. Immediate return of 400 cc yellow urine urine noted. Bedside drainage bag placed below level of bladder. Urine sample collected and sent to lab. Pt tolerated procedure well. Unable to toilet self.
--- NOTE | 2019-05-21 00:39 | NUR ---
Medication reconciliation completed with information provided by patient
[2019-05-21 00:41] LABS: BILIRUBIN,URINE NEGATIVE (NEGATIVE); BLOOD, URINE 3+ (NEGATIVE); CLARITY/URINE CLEAR (CLEAR); COLOR,URINE YELLOW (YELLOW); GLUCOSE,URINE 3+ (NEGATIVE); KETONES,URINE 1+ (NEGATIVE); LEUKOCYTE ESTERASE ,URINE 1+ (NEGATIVE); NITRITE, URINE POSITIVE (NEGATIVE); PH,URINE 5.5 (5.0-8.0); PROTEIN URINE 1+ (NEGATIVE); UROBILINOGEN,URINE 0.2 (0.2-1.0)
[2019-05-21 00:47] LABS: BACTERIA,URINE MANY /HPF (None Seen); MUCUS,URINE 2+ /LPF (None Seen); RBC,URINE >100 /HPF (0-3); WBC,URINE >100 /HPF (0-3)
--- NOTE | 2019-05-21 00:58 | NUR ---
Transfer to telemetry via ACLS protocol. Licensed nurse present. IV present no signs or symptoms of infiltration.
--- NOTE | 2019-05-21 01:01 | NUR ---
ADMISSION: The patient, ROMAIN GANT, 68 y/o, F admitted by MICKEY MENENDEZ MD with diagnosis of Sepsis/PNA, was given written information regarding hospital policies, unit procedures and contact persons.
--- NOTE | 2019-05-21 02:07 | NUR ---
Patient resting comfortably in bed, eyes closed, sleeping. No SOB on 4L NC, no acute distress, no signs of pain or facial grimacing noted. Breathing is even and unlabored with visible chest rise and fall noted. IV site intact, dressing clean and dry, saline locked. Bed is locked, in the lowest position, 2x side rails up, bed alarm is on. Call light is within reach.
--- NOTE | 2019-05-21 02:23 | NUR ---
Spoke with Dr Varela, who is covering for Dr England. Patient is complaining of a headache, and would like something to relieve her pain. Dr Varela ordered Tylenol 650mg PO Q4H PRN for mild pain, headache, and fever.
[2019-05-21] MEDS ORDERED: ACETAMINOPHEN 325 MG TABLET PO PRN ×2 (02:30→11:30)
[2019-05-21] MEDS ORDERED: PIPERACILLIN/TAZOBACTAM 2.25 GM VIAL IV ONE (03:10)
--- NOTE | 2019-05-21 04:20 | NUR ---
Patient resting comfortably in bed, eyes closed, sleeping. Breathing even and unlabored with visible chest rise and fall noted. No SOB, no acute distress, no signs of pain or facial grimacing noted. Bed is locked, in the lowest position, 2x side rails up, bed alarm is on. Call light is within reach.
[2019-05-21] MEDS: ZOSYN (PIPERACILLIN/TAZO) 2.25 GM in DEX-ISO (50ml) IV SCH ×3 (05:53→17:34)
[2019-05-21] MEDS ORDERED: PIPERACILLIN/TAZO 3.375 GM in NS 50 ML IV SCH (06:00)
[2019-05-21] MEDS: INSULIN REGULAR, HUMAN 100 UNITS/ML, 10 ML VIAL (novoLIN R) SUBCUT PRN ×4 (06:08→20:33)
--- NOTE | 2019-05-21 06:15 | NUR ---
Wound photo documentation done. Provided skin care as needed.
--- NOTE | 2019-05-21 07:10 | NUR ---
Dr England at the bedside to see the patient. Informed Dr England that the patient is requesting breathing treatments and will needs DVT prophylaxis for a risk score 4. Dr England stated that he will place the orders after first seeing the patient.
--- NOTE | 2019-05-21 07:15 | NUR ---
received report at the bedside from maxi Mcqueen RN. patient still asleep at this time. vitals signs taken. afebrile. and documented. has iv access on the rt ac #20. saline lock. lungs bilaterally with slight crackles. abdomen soft and non distended. bed in low position. call lights within reach. instructed to call for assistance.
[2019-05-21] MEDS ORDERED: ALBUTEROL SULFATE 0.083% 2.5 MG/3 ML VIAL.NEB INH PRN (07:30)
[2019-05-21] MEDS ORDERED: methylPREDNISolone SOD SUCC/PF 62.5 MG/ML VIAL IVP ONE (07:30)
[2019-05-21] MEDS ORDERED: ENOXAPARIN SODIUM 40 MG/0.4 ML SYRINGE SUBCUT ONE (07:30)
[2019-05-21] MEDS ORDERED: ALBUTEROL SULFATE 0.083% 2.5 MG/3 ML VIAL.NEB INH ONE (07:30)
[2019-05-21] MEDS ORDERED: IPRATROPIUM BROM 0.5 MG/2.5 ML VIAL.NEB (ATROVENT) INH ONE (07:30)
[2019-05-21] MEDS ORDERED: NACL 0.9% 1,000 ML IV SCH (07:30)
[2019-05-21] MEDS ORDERED: IPRATROPIUM BROM 0.5 MG/2.5 ML VIAL.NEB (ATROVENT) INH PRN (07:30)
--- NOTE | 2019-05-21 07:41 | NUR ---
Closing Notes Handoff report given to oncoming dayshift nurse at the bedside. Patient is AAOx4, resting comfortably in bed. No SOB, no acute distress, no complaints of pain at this time. IV site intact, dressing clean and dry, saline locked. Bed is locked, in the lowest position, 2x side rails up, bed alarm is on. Call light is within reach. Fall and safety precautions maintained. All needs have been met during this shift.
[2019-05-21] MEDS ORDERED: LISINOPRIL 5 MG TABLET PO ONE (07:45)
[2019-05-21] MEDS ORDERED: GABAPENTIN 300 MG CAPSULE PO ONE (07:45)
[2019-05-21] MEDS: LISINOPRIL 5 MG TABLET PO SCH (09:00)
[2019-05-21] MEDS: ENOXAPARIN SODIUM 40 MG/0.4 ML SYRINGE SUBCUT SCH (09:00)
[2019-05-21] MEDS ORDERED: ONDANSETRON HCL 4 MG/2 ML VIAL IVP PRN (09:30)
--- NOTE | 2019-05-21 09:48 | NUR ---
abdominal ultrasound done at the bedside. Healthcare partner disease case manager came to evaluate the patient.
--- NOTE | 2019-05-21 10:17 | NUR ---
Nutrition Update Seth Scale 18 noted. Pt admitted for sepsis, pneumonia. Diet: [facility] BMI: 34.2 kg/m2 RD to follow per nutrition care standards.
--- NOTE | 2019-05-21 10:37 | NUR ---
called dr fabian. awaiting to call back.
[2019-05-21] MEDS ORDERED: IPRATROPIUM BROM 0.5 MG/2.5 ML VIAL.NEB (ATROVENT) INH SCH (11:00)
[2019-05-21] MEDS ORDERED: ALBUTEROL SULFATE 0.083% 2.5 MG/3 ML VIAL.NEB INH SCH (11:00)
--- NOTE | 2019-05-21 12:17 | NUR ---
latest bs 307mg/dl. coverage given. hanged zozyn iv at this time.
--- NOTE | 2019-05-21 13:06 | NUR ---
CONSULTATION PAGED/CALLED Reason for Consultation: [] PNA Person Who was Notified: [] DAMARI Consulting Physician: [] DR Polina CORADO Medicinal Plant Picker Specialty: [] PULMO Ordering Physician: [] DR MENENDEZ
[2019-05-21] MEDS ORDERED: methylPREDNISolone SOD SUCC/PF 62.5 MG/ML VIAL IVP SCH (14:00)
--- NOTE | 2019-05-21 15:02 | NUR ---
dr pro soria came and evaluate the patient. made new orders.
--- NOTE | 2019-05-21 15:33 | NUR ---
[facility] Note Patient was referred to Fire Eater because she is homeless. DIRECTOR OF ASSESSMENT met with patient and friend at bedside. Patient was very drowsy, but confirmed she is still living with her son and his girlfriend in their van, as she was upon discharge on her last admission. DIRECTOR OF ASSESSMENT provided the homeless resource packet but patient fell asleep. Patient's friend took the list and stated he is also living with patient and son in the van. He is also homeless. He began quoting several passages from the bible. DIRECTOR OF ASSESSMENT stated Fire Eater will come back to speak with patient at a later time.
--- NOTE | 2019-05-21 15:34 | NUR ---
Dietitian Recommendations * Recommend continuing [facility] diet per physician LP, RD Please refer to Nutrition Assessment for details.
--- NOTE | 2019-05-21 15:37 | NUR ---
patient very sleepy. vitals signs taken. no pain no sob nor acute distress noted.
[2019-05-21] MEDS: GABAPENTIN 300 MG CAPSULE PO SCH ×2 (15:43→20:26)
--- NOTE | 2019-05-21 18:03 | NUR ---
latest bs 394 mg/dl. coverage given. made comfortable. very sleepy. verbalized wants to sleep more.
--- NOTE | 2019-05-21 18:04 | NUR ---
hanged iv antibiotic. still very sleepy. informed patient to eat but said later.
--- NOTE | 2019-05-21 18:25 | NUR ---
closing nores: patient still very sleepy. but arousable. she refused to eat now. said later. a friend at the bedside. still has oxygen at 4lnc of O2 Sat 94%. breathing even and unlabored. still with iv access on the rt ac #20 with Zozyn iv infusing on well. then saline lock. bed in low position. locked and alarmed. call lights within reach. refused to have scds on. said later. all needs are met. maintained safety measures. instructed patient to call for assistance. still allan catheter draining clear yellow urine. endorsed to incoming nurse.
--- NOTE | 2019-05-21 19:30 | NUR ---
Opening notes Received report. Patient asleep in bed. Easily awaken, but falls right back to sleep. No signs of distress noted. Breathing even and unlabored, patient denies SOB, on 4 L NC. Provided patient with blanket, per patient request. No other needs at this time. Call light with the patient. Safety precautions in place.
[2019-05-21] MEDS: methylPREDNISolone SOD SUCC 40 MG/ML VIAL IVP SCH (20:25)
[2019-05-21] MEDS: IPRATROPIUM BROM 0.5 MG/2.5 ML VIAL.NEB (ATROVENT) INH SCH (20:26)
[2019-05-21] MEDS: LevALBUTEROL HCL 1.25 MG/0.5 ML *CONC.* VIAL.NEB (XOPENEX CONC.) INH SCH (20:30)
--- NOTE | 2019-05-21 20:39 | NUR ---
Spoke to Dr. England Informed MD of patient's blood sugar of 422 and 8 units of insulin was given. No additional units ordered. Informed MD of patient's blood pressure of 89/51 and patient is lethargic. MD ordered 500 cc bolus. Will implement and carry out.
[2019-05-21] MEDS ORDERED: NS 500 ML IV SCH (21:00)
--- NOTE | 2019-05-21 21:00 | NUR ---
500 ml NS bolus given. Will monitor BP. Addendum: 05/22/19 at 0048 by Linda Mcmanus RN Patient BP 81/39, 80/52, 79/48.
--- NOTE | 2019-05-21 22:20 | NUR ---
PAGED PAGING THE CAN CLOSING MACHINE OPERATOR PHYSICIAN, DR. MENENDEZ, FOR ORDERS, SPOKE WITH DANE
--- NOTE | 2019-05-21 23:29 | NUR ---
PAGED x2 SECOND PAGE SENT OUT TO THE SAFETY SUPERVISOR PHYSICIAN DR. MENENDEZ
--- NOTE | 2019-05-21 23:45 | NUR ---
Spoke to Dr. Samanta Gregory MD patient's BP is still low, 81/39, and patient is very lethargic. New orders to bolus, start IV fluids and transfer to ICU.
[2019-05-22] VITALS (20 sets, daily range): BP systolic 79–126
[2019-05-22] MEDS ORDERED: NS 500 ML IV SCH
[2019-05-22] MEDS: NACL 0.9% 1,000 ML IV SCH ×2 (00:01→14:41)
--- NOTE | 2019-05-22 00:10 | NUR ---
Patient transferred to ICU Patient remains lethargic. IV patent and intact. Second 500 ml bolus of NS currently infusing. Lieberman catheter in place draining yellow urine. All needs met. Safety precautions in place.
--- NOTE | 2019-05-22 00:15 | NUR ---
ICU TRANSFER Pt is lethargic, slurring words. O2 via NC @4L. SR noted on monitor. NS bolus infusing to RAC 20g. Skin warm and intact. Safety precautions in place, call light within reach. Will continue to monitor.
[2019-05-22] MEDS: ZOSYN (PIPERACILLIN/TAZO) 2.25 GM in DEX-ISO (50ml) IV SCH ×4 (00:41→16:51)
--- NOTE | 2019-05-22 01:00 | NUR ---
Pt more awake/alert, speaking clearly. CHG bath also given at this time. Pt educated on how to use the call light. Will continue to monitor.
--- NOTE | 2019-05-22 01:30 | NUR ---
Pts son at bedside visiting.
[2019-05-22] MEDS: LevALBUTEROL HCL 1.25 MG/0.5 ML *CONC.* VIAL.NEB (XOPENEX CONC.) INH SCH ×4 (01:43→19:09)
[2019-05-22] MEDS: IPRATROPIUM BROM 0.5 MG/2.5 ML VIAL.NEB (ATROVENT) INH SCH ×4 (01:43→19:09)
[2019-05-22] MEDS: INSULIN REGULAR, HUMAN 100 UNITS/ML, 10 ML VIAL (novoLIN R) SUBCUT PRN ×4 (06:25→21:01)
[2019-05-22 06:48] LABS: BASOPHILS % (AUTO) 0.2 % (0.0-2.0); HEMATOCRIT 36.3 % (36-48); LYMPHOCYTES # (AUTO) 0.6 K/uL (1.0-5.5); LYMPHOCYTES % (AUTO) 6.7 % (20.5-51.5); MEAN CORPUSCULAR HEMOGLOBIN 30 pg (27-31); MEAN CORPUSCULAR HGB CONC 33 % (32-36); MEAN CORPUSCULAR VOLUME 91 fL (79.0-98.0); MONOCYTES # (AUTO) 0.2 K/uL (0.0-1.0); MONOCYTES % (AUTO) 2.8 % (1.7-9.3); NEUTROPHILS % (AUTO) 90.3 % (40.0-70.0); PLATELET COUNT (AUTO) 157 K/uL (130-430); RED BLOOD CELL COUNT(AUTO) 4.02 MIL/uL (4.2-6.2); RED CELL DISTRIBUTION WIDTH 14.6 % (9.0-15.0); WHITE BLOOD COUNT (AUTO) 8.9 K/uL (4.8-10.8)
[2019-05-22 07:01] LABS: ALBUMIN 2.1 g/dL (3.4-4.8); CALCIUM 8.4 mg/dL (8.4-11.0); CREATININE 0.92 mg/dL (0.55-1.30); POTASSIUM 4.4 mmol/L (3.5-5.1); TOTAL BILIRUBIN 0.5 mg/dL (0.0-1.0)
--- NOTE | 2019-05-22 07:27 | NUR ---
ENDORSEMENT Pt care endorsed to ABDIRIZAK Centeno at bedside using nursing SBAR.
--- NOTE | 2019-05-22 07:50 | NUR ---
AM ASSESSMENT. PT ON NEBULIZER TREATMENT, SHIVERING, TEMP NORMAL RANGE, USING 3 LAYERS OF BLANKET, SHE ASKED FOR MORE BLANKET AND BROUGHT ANOTHER LAYER OF BLANKET, WILL CONTINUE TO MONITOR.
--- NOTE | 2019-05-22 08:10 | NUR ---
DIET. BREAKFAST TRAY SERVED, HELPED PT SIT UP IN BED, NO COMPLAINTS OF BODY DISCOMFORT.
[2019-05-22] MEDS: GABAPENTIN 300 MG CAPSULE PO SCH ×3 (08:45→20:53)
[2019-05-22] MEDS: LISINOPRIL 5 MG TABLET PO SCH (08:45)
[2019-05-22] MEDS: ENOXAPARIN SODIUM 40 MG/0.4 ML SYRINGE SUBCUT SCH (08:46)
--- NOTE | 2019-05-22 08:53 | NUR ---
HR ELEV. DR MENENDEZ IN THE PATIENT'S ROOM, MADE HIM AWARE OF PT BEING TACHYCARDIC. NO NEW ORDERS RECEIVED.
[2019-05-22] MEDS ORDERED: GENTAMICIN SULFATE 300 MG in NS 100 ML IV ONE (09:00)
[2019-05-22] MEDS: methylPREDNISolone SOD SUCC 40 MG/ML VIAL IVP SCH ×2 (09:52→20:53)
[2019-05-22] MEDS: LEVOFLOXACIN 500 MG/D5W 100 ML IV SCH (09:53)
--- NOTE | 2019-05-22 10:00 | NUR ---
COMFORT. PT WATCHING TV SHOW, NEEDS ASSESSED AND ATTENDED, PT COMPLAINED OF FEELING HOT, LEFT 1 LAYER OF THIN SHEET ON TOP OF HER.
--- NOTE | 2019-05-22 15:46 | NUR ---
NURSING. PT AWARE OF TRANSFER TO [facility], SHE WENT LOOKING FOR PHONE NUMBER OF HER SON CHUCHO FROM HER PURSE, NOTEBOOK.
--- NOTE | 2019-05-22 16:59 | NUR ---
FSBS CHECKED BLOOD SUGAR 368 MG/DL, WITH 8 UNITS REGULAR INSULIN SQ GIVEN COVERAGE.
--- NOTE | 2019-05-22 17:20 | NUR ---
TO [facility]. TRANSFERRED PATIENT TO ROOM 133-A, WITH ALL PERSONAL BELONGINGS WITH HER. REPORT GIVEN TO ABDIRIZAK MOCK. IVF INFUSING THRU HER RIGHT A/C, NO S/SX OF INFILTRATION, SCHULTE CATHETER INTACT AND DRAINED 1150 FROM THIS SHIFT.
--- NOTE | 2019-05-22 17:30 | NUR ---
TRANSFER FROM ICU RECEIVED PT FROM ICU. VITALS STABLE. NOT IN ACUTE DISTRESS. IVF INFUSING WELL.TO RT AC#20. NO S/SOF INFILTRATION NOTED.HOB ELEVATED PT ON 3 L NC SATURATION 95%. SCHULTE CATH DRAINING YELLOW COLOR URINE.NEEDS ATTENDED. WILL CONTINUE TO MONITOR
--- NOTE | 2019-05-22 19:00 | NUR ---
CLOSING NOTES PT STABLE NOT IN ACUTE DISTRESS. NEEDS ATTENDED. REPORT GIVEN TO NIGHT NURSE
--- NOTE | 2019-05-22 19:15 | NUR ---
OPENING NOTE Received report from day shift nurse. Patient resting in bed awake, alert, oriented x4. Breathing unlabored and even on 3L oxygen via NC. No signs of distress, no needs at this time. Fall and safety precautions in place. Bed in lowest position, brake on, alarm on, call light within reach. IVF infusing as ordered. Lieberman catheter draining via gravity as ordered. Will continue to monitor.
--- NOTE | 2019-05-22 21:05 | NUR ---
Med pass. Blood sugar 369. Administered 8 units of regular insulin per PRN insulin sliding scale. Patient c/o headache. Administered PRN tylenol PO a ordered.
--- NOTE | 2019-05-22 23:17 | NUR ---
Patient resting in bed with eyes closed. Breathing unlabored and even on 2L oxygen via NC. No signs of distress, no needs at this time. Fall and safety precautions in place. Bed in lowest position, brake on, alarm on, call light within reach. IVF infusing as ordered. Lieberman catheter draining via gravity as ordered. Will continue to monitor.
[2019-05-23] MEDS: ZOSYN (PIPERACILLIN/TAZO) 2.25 GM in DEX-ISO (50ml) IV SCH ×4 (00:05→17:05)
[2019-05-23] MEDS: NACL 0.9% 1,000 ML IV SCH ×3 (00:09→11:48)
--- NOTE | 2019-05-23 00:10 | NUR ---
New IVF hung. IV abx hung.
[2019-05-23 00:30] VITALS: BP_SYST 100
[2019-05-23] MEDS: LevALBUTEROL HCL 1.25 MG/0.5 ML *CONC.* VIAL.NEB (XOPENEX CONC.) INH SCH ×3 (01:11→19:49)
[2019-05-23] MEDS: IPRATROPIUM BROM 0.5 MG/2.5 ML VIAL.NEB (ATROVENT) INH SCH ×3 (01:11→19:48)
[2019-05-23] MEDS: INSULIN REGULAR, HUMAN 100 UNITS/ML, 10 ML VIAL (novoLIN R) SUBCUT PRN ×4 (06:09→21:40)
--- NOTE | 2019-05-23 06:13 | NUR ---
IV erick stewart. Blood sugar 341. Administered 6 units of regular insulin per PRN insulin sliding scale.
--- NOTE | 2019-05-23 06:58 | NUR ---
CLOSING NOTE Patient resting in bed with eyes closed. Breathing unlabored and even on 2L oxygen via NC. No signs of distress, no needs at this time. Fall and safety precautions in place. Bed in lowest position, brake on, alarm on, call light within reach. IVF infusing as ordered. Lieberman catheter draining via gravity as ordered. Will endorse cares to day shift nurse.
[2019-05-23 07:11] LABS: HEMATOCRIT 37.1 % (36-48); HEMOGLOBIN 12.2 g/dL (12.0-16.0); LYMPHOCYTES # (AUTO) 0.3 K/uL (1.0-5.5); LYMPHOCYTES % (AUTO) 3.3 % (20.5-51.5); MEAN CORPUSCULAR HEMOGLOBIN 30 pg (27-31); MEAN CORPUSCULAR HGB CONC 33 % (32-36); MEAN CORPUSCULAR VOLUME 91 fL (79.0-98.0); MONOCYTES # (AUTO) 0.4 K/uL (0.0-1.0); MONOCYTES % (AUTO) 3.7 % (1.7-9.3); NEUTROPHILS # (AUTO) 9.5 K/uL (1.8-7.7); PLATELET COUNT (AUTO) 160 K/uL (130-430); RED BLOOD CELL COUNT(AUTO) 4.08 MIL/uL (4.2-6.2); RED CELL DISTRIBUTION WIDTH 14.2 % (9.0-15.0); WHITE BLOOD COUNT (AUTO) 10.2 K/uL (4.8-10.8)
[2019-05-23 07:26] LABS: ALBUMIN 1.9 g/dL (3.4-4.8); CALCIUM 8.5 mg/dL (8.4-11.0); CREATININE 0.84 mg/dL (0.55-1.30); POTASSIUM 4.1 mmol/L (3.5-5.1); TOTAL BILIRUBIN 0.5 mg/dL (0.0-1.0)
[2019-05-23 08:00] VITALS: BP_SYST 110
--- NOTE | 2019-05-23 08:10 | NUR ---
opening notes, received pt in bed, pt is aaox3, no pain, no sob. no resp distress. vitals wnl , no fever. pt is [place]. iv access intact and patent. iv fluids infusing well. no s/s of infiltratin or swelling. plan of care discussed with pt. safety precaution in place. call light in reach. bed in low position. bed alarm on. pt encouraged to call for assist and pain meds and any other concerns.
[2019-05-23] MEDS: methylPREDNISolone SOD SUCC 40 MG/ML VIAL IVP SCH ×2 (08:45→21:37)
[2019-05-23] MEDS: LISINOPRIL 5 MG TABLET PO SCH (08:45)
[2019-05-23] MEDS: GABAPENTIN 300 MG CAPSULE PO SCH ×3 (08:45→21:37)
[2019-05-23] MEDS: LEVOFLOXACIN 500 MG/D5W 100 ML IV SCH (08:46)
[2019-05-23] MEDS: ENOXAPARIN SODIUM 40 MG/0.4 ML SYRINGE SUBCUT SCH (08:48)
--- NOTE | 2019-05-23 10:08 | NUR ---
PT AWAKE, RESTING COMFORTABLY IN BED, NO C./O PAIN, NO SOB. WILL CONT TO MONITOR.
--- NOTE | 2019-05-23 10:43 | NUR ---
PAGED DR. GUZMAN FOR ORDERS.
[2019-05-23] MEDS ORDERED: MICONAZOLE NITRATE APPL VG SCH (11:30)
[2019-05-23 11:59] VITALS: BP_SYST 115
--- NOTE | 2019-05-23 12:08 | NUR ---
[facility] CONSULT ORDERED: PT GRANDSON BETTINA TURPIN ( TEL [phone] ) APPROACHED THIS RN AND STATED THAT PT'S SISTER NOVA LOPEZ FROM [facility] (TEL NO [phone] ) NEEDS TO BE THE PT'S POA. ACCORDING TO BETTINA HE HAS CALLED [facility] FOR THIS PT BED SHE LIVES IN A VAN WITH HER DRUG USING SON AND HER GIRLFRIEND. BETTINA STATED THAT PT NEEDS TO BE IN A SNF OR ELSE THE PT WILL IN THE VAN WITH NO HELP. Addendum: 05/23/19 at 1216 by Venkat Vanegas RN BETTINA TOLD ME THAT HE RECEIVED TEXT FROM NOVA LOPEZ TELLING HIM THAT THE PT'S DAUGHTER, PARVEEN GANT ( TEL NO [phone]) SHOULD BE THE POA. Addendum: 05/23/19 at 1818 by Venkat Vanegas RN BETTINA SAID THE DAUGHTER PARVEEN REFUSED ALSO TO BE THE POA.
--- NOTE | 2019-05-23 15:48 | NUR ---
PT RESTING IN BED, NO C/O OF PAIN, NO SOB, PT ON O2 2L PER NC. ENCOURAGED TO DO BREATHING EXERCISE.
[2019-05-23 16:35] VITALS: BP_SYST 119
--- NOTE | 2019-05-23 18:18 | NUR ---
CLOSING NOTES,\ PT HAS BEEN STABLE, STILL HAVING SHORTNESS OF BREATH WITH EXERTION LIKE GOING TO THE BS COMMODE. PT AMBULATED WITH P.T. C/O OF SOME DIZZINESS AFTER WALKING TO THE DOOR. FAMILY VISITED PATIENT TODAY. WILL ENDORSE TO NIGHT RN.
--- NOTE | 2019-05-23 18:31 | NUR ---
CLOSING NOTES, PT HAS NO FEVER, GIVEN PAIN MEDS FOR ABDOMINAL PAIN, KEPT NPO ORDERED. EXPLAINED TO PT AND FAMILY WHY HE NEEDS TO BE NO FOOD NO WATER. WILL ENDORSE TO CHAD RN. Addendum: 05/23/19 at 1833 by Venkat Vanegas RN WRONG ENTRY: PLEASE DISREGARD THIS NOTES, THIS BELONGS TO ANOTHER PT.
[2019-05-23 20:00] VITALS: BP_SYST 128
--- NOTE | 2019-05-23 20:05 | NUR ---
INITIAL NOTES: BEDSIDE REPORT DONE WITH AM RN,PATIENT IN BED TALKING WITH FAMILIES VISITING.HAVING BREATHING TREATMENTS BY RT. HAS WHEEZING AND OCCASIONAL EXERTIONAL DYSPNEA. ON O2 3 LITERS PER NASAL CANNULA.DISCUSSED PLAN OF CARE. CALL LIGHT WITHIN REACH. BED IN LOW POSITION. SINUS WITH BBB W/ ELEVATED T WAVE. WILL MONITOR CLOSELY.USES BSC TO VOID WITH ASSIST.
--- NOTE | 2019-05-23 21:40 | NUR ---
MEDS ADMIN: ALL DUE MEDS GIVEN AFTER DISCUSSING EFFECTS AND SIDE EFFECTS OF EACH.
[2019-05-23] MEDS: MICONAZOLE NITRATE 100 MG/SUPP.VAG EA VG SCH (21:49)
--- NOTE | 2019-05-23 23:05 | NUR ---
RESTING IN BED WITH EYES CLOSE.
[2019-05-24] VITALS: BP_SYST 139
[2019-05-24] MEDS: IPRATROPIUM BROM 0.5 MG/2.5 ML VIAL.NEB (ATROVENT) INH SCH ×4 (01:01→19:30)
[2019-05-24] MEDS: LevALBUTEROL HCL 1.25 MG/0.5 ML *CONC.* VIAL.NEB (XOPENEX CONC.) INH SCH ×4 (01:01→19:30)
--- NOTE | 2019-05-24 01:50 | NUR ---
VOIDED VIA BSC WITH ASSIST FOR SAFETY. NO DISTRESS.
[2019-05-24] MEDS: NACL 0.9% 1,000 ML IV SCH ×2 (02:05→21:46)
[2019-05-24] MEDS: ZOSYN (PIPERACILLIN/TAZO) 2.25 GM in DEX-ISO (50ml) IV SCH ×5 (02:05→23:47)
--- NOTE | 2019-05-24 03:30 | NUR ---
CALLED TO VOID .DOCUMENT CONTROL ASSOCIATE ASSISTED TO BSC. STILL W/ SLIGHT WHEEZING.HAS MOIST COUGH. ON OXYGEN.
[2019-05-24] MEDS: INSULIN REGULAR, HUMAN 100 UNITS/ML, 10 ML VIAL (novoLIN R) SUBCUT PRN ×4 (06:32→20:54)
--- NOTE | 2019-05-24 06:35 | NUR ---
CLOSING: BLOOD SUGAR 334MG/DL. 6 UNITS REGULAR INSULIN GIVEN.STILL WITH MOIST COUGH,WHEEZING, BREATHING TX IN PROCESS.IVF INFUSING AT 40ML/HR.ALL NEEDS WERE ATTENDED. NO ACUTE CARDIOPULMONARY DISTRESS.
[2019-05-24 07:42] VITALS: BP_SYST 139
--- NOTE | 2019-05-24 07:55 | NUR ---
OPENING NOTES, RECEIVED PT IN BED, PT IS AAOX4, DENIES PAIN, NO SOB. IV FLUIDS INFUSING WELL. NO INFILTRATION/SWELLING ON THE IV SITE. SAFETY IN PLACE. CALL LIGHT IN REACH. BED ALARM ON. BED IN LOW POSITION. WILL CONT TO MONITOR.
--- NOTE | 2019-05-24 08:05 | NUR ---
PT ASSISTED TO BS COMMODE TO VOID AND BACK TO BED, NOTED THAT PT IS MUCH BETTER TODAY WITH VERY LITTLE SOB COMPARED TO YESTERDAY. PT ASSISTED BACK TO SIT ON THE CHAIR FOR BREAKFAST.
[2019-05-24] MEDS: LISINOPRIL 5 MG TABLET PO SCH (08:30)
[2019-05-24] MEDS: GABAPENTIN 300 MG CAPSULE PO SCH ×3 (08:30→20:50)
[2019-05-24] MEDS: methylPREDNISolone SOD SUCC 40 MG/ML VIAL IVP SCH ×2 (08:31→20:50)
[2019-05-24] MEDS: ENOXAPARIN SODIUM 40 MG/0.4 ML SYRINGE SUBCUT SCH (08:33)
[2019-05-24] MEDS: LEVOFLOXACIN 500 MG/D5W 100 ML IV SCH (08:34)
--- NOTE | 2019-05-24 09:19 | NUR ---
PT ASSISTED BACK TO BED AFTER BREAKFAST. PT APPEARS DOING WELL WITH MOBILITY AND BREATHING. WILL CONT TO MONITOR.
[2019-05-24] MEDS ORDERED: FUROSEMIDE 40 MG/4 ML VIAL IVP ONE (09:30)
--- NOTE | 2019-05-24 09:45 | NUR ---
Dr crowe here and seen and examined pt.
[2019-05-24 12:10] VITALS: BP_SYST 119
--- NOTE | 2019-05-24 12:55 | NUR ---
pt assisted to bathroom and back to bed, pt had a bm.
--- NOTE | 2019-05-24 14:45 | NUR ---
pt sitting on chair, getting breathing treatment. pt stated she washed herself up. will cont to monitor.
[2019-05-24 15:35] VITALS: BP_SYST 119
[2019-05-24 16:05] VITALS: BP_SYST 125
[2019-05-24 19:45] VITALS: BP_SYST 109
--- NOTE | 2019-05-24 19:45 | NUR ---
INITIAL NOTES: RECEIVED BEDSIDE REPORT FROM RN IRAJ. PATIENT IN BED AWAKE ,TALKING TO FAMILY AT BEDSIDE.DENIES PAIN NOR SOB. VERBALIZED FEELING BETTER. IVF INFUSING AT 40ML/HR .IV SITE RT. AC CLEAR.ON O2 2 LITERS PER N/C .SAT 97%. DISCUSSED PLAN OF CARE WITH UNDERSTANDING. CALL LIGHT WITHIN REACH. BED IN LOW POSITION. SINUS RHYTHM. WILL MONITOR CLOSELY.
--- NOTE | 2019-05-24 20:25 | NUR ---
NUTRITION: PATIENT ASKED FOR JELLO /KENDELL CRACKERS. BLOOD SUGAR TAKEN FIRST 307MG/DL. WILL GIVE INSULIN REGULAR PER SLIDING SCALE.
[2019-05-24] MEDS: MICONAZOLE NITRATE 100 MG/SUPP.VAG EA VG SCH (20:51)
--- NOTE | 2019-05-24 21:10 | NUR ---
MEDS ADMIN: ALL DUE MEDS GIVEN WITHOUT DIFFICULTY. VAGINAL ITCHING PRESENT BUT MUCH LESS THAN BEFORE WITH VAGINAL SUPPOSITORY.
--- NOTE | 2019-05-24 21:30 | NUR ---
FRIEND WITH HER DOG CAME FOR A VISIT.
--- NOTE | 2019-05-24 22:00 | NUR ---
VOIDED VIA BEDSIDE COMMODE. NO ACUTE DISTRESS. COUGHING PRODUCTIVELY.
--- NOTE | 2019-05-24 23:50 | NUR ---
PATIENT RESTING WITH EYES CLOSE. DUE IVPB INFUSED. VITAL SIGNS TAKEN STABLE. CALL LIGHT WITHIN REACH.
--- NOTE | 2019-05-25 00:30 | NUR ---
VOIDED VIA BSC. BED ALARM RINGS EVERY TIME GETS UP TO BSC. EXPLAIN REASONS .
[2019-05-25 00:38] VITALS: BP_SYST 100
[2019-05-25] MEDS: IPRATROPIUM BROM 0.5 MG/2.5 ML VIAL.NEB (ATROVENT) INH SCH ×4 (00:50→19:25)
[2019-05-25] MEDS: LevALBUTEROL HCL 1.25 MG/0.5 ML *CONC.* VIAL.NEB (XOPENEX CONC.) INH SCH ×4 (00:50→19:25)
--- NOTE | 2019-05-25 02:10 | NUR ---
GETS UP BY HERSELF TO BSC TO VOID. BED ALARM RINGS. REFUSES TO TURN ON ALARM.
--- NOTE | 2019-05-25 02:40 | NUR ---
HEART RATE PER MONITOR 133-140. CHECKED PATIENT ,SOUND ASLEEP ON FULL LEFT SIDE POSITION RT. ARM ON FRONT OF HER FACE. WOKE PATIENT UP.CHECKED SAT USING BP MACHINE HR 77/MIN.TOLD PATIENT TO LAY ON HER BACK,SAID IM COMFORTABLE ON MY POSITION.
--- NOTE | 2019-05-25 03:50 | NUR ---
ROUNDS: CONTINUE TO SLEEP SNORING ON HER LEFT SIDE.
[2019-05-25] MEDS: ZOSYN (PIPERACILLIN/TAZO) 2.25 GM in DEX-ISO (50ml) IV SCH ×3 (06:26→17:47)
[2019-05-25] MEDS: INSULIN REGULAR, HUMAN 100 UNITS/ML, 10 ML VIAL (novoLIN R) SUBCUT PRN ×2 (06:31→11:47)
[2019-05-25 06:44] LABS: BASOPHILS % (AUTO) 0.1 % (0.0-2.0); HEMATOCRIT 39.3 % (36-48); LYMPHOCYTES # (AUTO) 0.8 K/uL (1.0-5.5); MEAN CORPUSCULAR HEMOGLOBIN 29 pg (27-31); MEAN CORPUSCULAR HGB CONC 33 % (32-36); MEAN CORPUSCULAR VOLUME 89 fL (79.0-98.0); MONOCYTES # (AUTO) 0.3 K/uL (0.0-1.0); NEUTROPHILS # (AUTO) 4.7 K/uL (1.8-7.7); NEUTROPHILS % (AUTO) 80.9 % (40.0-70.0); PLATELET COUNT (AUTO) 175 K/uL (130-430); RED BLOOD CELL COUNT(AUTO) 4.42 MIL/uL (4.2-6.2); RED CELL DISTRIBUTION WIDTH 14.1 % (9.0-15.0)
[2019-05-25 07:06] LABS: WHITE BLOOD COUNT (AUTO) 5.8 K/uL (4.8-10.8)
--- NOTE | 2019-05-25 07:25 | NUR ---
OPENING NOTE RECEIVED PT FROM NIGHT RN. PT IS SITTING UP IN BED WATCHING TV. PT DOES NOT APPEAR TO BE IN ANY DISTRESS, PAIN OR DISCOMFORT, OR SHORTNESS OF BREATH. PT IS CONNECTED TO OXYGEN AT 2 LITERS. PT'S BED IS IN LOWEST POSITION, CALL LIGHT WITHIN REACH. PATIENT IS IN STABLE CONDITION WILL CONTINUE TO MONITOR. Addendum: 05/25/19 at 1115 by Morenita Whitehead RN PT AAOX4, VERBAL. IV CATHETER PATENT, NO SIGNS OF INFECTION OR INFILTRATION NOTED, RUNNING IV FLUIDS ORDERED. FALL AND SAFETY PRECAUTIONS IN PLACE. PT REFUSED TO HAVE BILATERAL SCD'S IN PLACE DUE TO TAKING LOVENOX, EDUCATED PT ON IMPORTANCE FOR PREVENTION OF DVT, PT VERBALIZED UNDERSTANDING BUT CONTINUES TO REFUSE.
[2019-05-25 07:33] LABS: ALBUMIN 2.3 g/dL (3.4-4.8); CALCIUM 8.8 mg/dL (8.4-11.0); CREATININE 0.91 mg/dL (0.55-1.30)
--- NOTE | 2019-05-25 07:45 | NUR ---
CLOSING: BLOOD SUGAR 356MG/DL. COVERED WITH REGULAR INSULIN. NO DISTRESS WHOLE SHIFT. USES BSC WITH NO PROBLEM. ALL NEEDS WERE DONE.
[2019-05-25 08:02] LABS: TOTAL BILIRUBIN 0.5 mg/dL (0.0-1.0)
[2019-05-25] MEDS: ENOXAPARIN SODIUM 40 MG/0.4 ML SYRINGE SUBCUT SCH (08:17)
[2019-05-25] MEDS: LISINOPRIL 5 MG TABLET PO SCH (08:17)
[2019-05-25] MEDS: GABAPENTIN 300 MG CAPSULE PO SCH ×3 (08:18→21:21)
[2019-05-25] MEDS: methylPREDNISolone SOD SUCC 40 MG/ML VIAL IVP SCH (08:18)
[2019-05-25] MEDS: LEVOFLOXACIN 500 MG/D5W 100 ML IV SCH (08:19)
[2019-05-25 08:30] VITALS: BP_SYST 99
--- NOTE | 2019-05-25 10:25 | NUR ---
ROUNDING NOTE PT IS SITTING UP IN CHAIR NEXT TO BED. PT HAS NO SIGNS OR SYMPTOMS OF DISTRESS OR PAIN. PT IS TALKING TO VISITORS AT BEDSIDE. PT IS IN STABLE CONDITION. WILL CONTINUE TO MONITOR.
--- NOTE | 2019-05-25 12:25 | NUR ---
ROUNDING NOTE PT IS SITTING IN BED WATCHING TV. PT HAS VISITORS AT BEDSIDE. PT HAS NO SIGNS OR SYMPTOMS OF DISTRESS. BED IN LOWEST POSITION, CALL LIGHT WITHIN REACH. WILL CONTINUE TO MONITOR.
[2019-05-25 12:28] VITALS: BP_SYST 125
--- NOTE | 2019-05-25 14:22 | NUR ---
ROUNDING NOTE PT IS LAYING IN BED. VISITOR AT BEDSIDE. PATIENT HAS NO SIGNS OR SYMPTOMS OF DISTRESS OR SHORTNESS OF BREATH. BED IN LOWEST POSITION, CALL LIGHT WITHIN REACH. WILL CONTINUE TO MONITOR.
--- NOTE | 2019-05-25 16:20 | NUR ---
ROUNDING NOTE PATIENT RESTING COMFORTABLY WITH VISITOR AT BEDSIDE. PATIENT HAS NO SIGNS OR SYMPTOMS OF DISTRESS OR PAIN. PATIENT'S BED IS IN LOWEST POSITION, WITH CALL LIGHT WITHIN REACH, AND NEAR THE NURSE'S STATION. PATIENT IS STABLE. WILL CONTINUE TO MONITOR.
--- NOTE | 2019-05-25 16:31 | NUR ---
Press Tender: CONTINUOUS MINING OPERATOR met with pt. bedside. She had a friend, Parish and her service dog Shaina present during the interview. Pt. stated she lives in her van with her new freind Parish who has been staying with her for 2 weeks. She also has her 44 year old son and his 38 year old girlfriend and their two dogs staying in the van as well. Her sons girlfriend gets a Social Security Check . Her friend Parish gets $1000 a month and pt. gets $760 pr. month. She uses that money for food and her car payment and insurance. She said she is nervous upon discharge because she has 6 days left until she gets another check . She said her son said he cant get a job and her sister is in [facility]. Pt. feels like there is not help for her. During the evening she brady her van at the [employer] parking lot in [place] and during the day if she has gas will go to [facility] in [facility] to get a free meal. When CONTINUOUS MINING OPERATOR shared some resources with her, she said the food at the [facility] is not the best and she is unable to prepare the food that is given to her because she does not have a stove or a place to keep things cold. She is able to ambulate, but feels more secure with a shopping cart to stabilzer her. She has been homeless for the past 4 years. CONTINUOUS MINING OPERATOR asked if pt. has ever felt as though she wanted to hurt herself. Pt. stated she did not ever want to kill herself. Pt. thanked CONTINUOUS MINING OPERATOR for trying to help. CONTINUOUS MINING OPERATOR will remain available as needed. CONTINUOUS MINING OPERATOR wrote an email to [facility] Rivera asking her to look into thes Pts.' needs such as housing and DME needs. CONTINUOUS MINING OPERATOR stated she is available as needed. Addendum: 05/26/19 at 1037 by Parul Bowles LCSW FINANCIAL BUSINESS ANALYST noted order to address DPOA. FINANCIAL BUSINESS ANALYST met with patient at bedside. A DPOA for health care was brought by CONTINUOUS MINING OPERATOR yesterday. Patient has it and understands how to complete it. She just is not sure who to assign to make her decisions at this time.
[2019-05-25 16:52] VITALS: BP_SYST 122
--- NOTE | 2019-05-25 17:58 | NUR ---
MD CALL DR SHON RON TO NOTIFY HIM THAT PATIENT'S BLOOD SUGAR WAS 407, PT ASYMPTOMATIC, NO SIGNS OF HYPERGLYCEMIA NOTED, DR HAYES DAIRY POWDER MIXER OPERATOR, AWAITING CALL BACK. Addendum: 05/25/19 at 1842 by Morenita Whitehead RN [id number] called back and gave new orders
[2019-05-25] MEDS ORDERED: INSULIN REGULAR, HUMAN 100 UNITS/ML, 10 ML VIAL SUBCUT ONE (18:15)
--- NOTE | 2019-05-25 18:48 | NUR ---
CLOSING NOTE PATIENT IS SITTING COMFORTABLY IN BED. JUST FINISHED EATING DINNER. PATIENT HAS A VISITOR AT BEDSIDE. PATIENT RECEIVED ONE TIME 10 UNITS REGULAR INSULIN BEFORE DINNER FOR A CRITICAL BLOOD SUGAR VALUE. PATIENT TOLERATING WELL. PATIENT HAS NO SIGNS OR SYMPTOMS OF DISTRESS, PAIN OR SHORTNESS OF BREATH. PATIENT IS SATURATING WELL ON 2 LITERS OF OXYGEN NASAL CANNULA. WILL ENDORSE TO NEXT SHIFT. Addendum: 05/25/19 at 1851 by Ayana Chapman RN PATIENT IS IN STABLE CONDITION.
[2019-05-25 20:58] VITALS: BP_SYST 125
[2019-05-25] MEDS: PREDNISONE 20 MG TABLET PO SCH (21:21)
[2019-05-25] MEDS: MICONAZOLE NITRATE 100 MG/SUPP.VAG EA VG SCH (21:21)
--- NOTE | 2019-05-25 22:00 | NUR ---
PHONED PAGED DR ABIGAIL OAKES D/T BSG 418 MG DL .
--- NOTE | 2019-05-25 22:12 | NUR ---
NEW ORDERS DR ABIGAIL OAKES GIVE 12 UNITS OF REGULAR INSULIN SUB Q. X ONE .
[2019-05-25] MEDS ORDERED: INSULIN REGULAR, HUMAN 100 UNITS/ML, 10 ML VIAL SUBCUT SCH (22:30)
--- NOTE | 2019-05-25 22:43 | NUR ---
12 UNITS OF REGULAR INSULIN SUB Q. ADMINISTER ORDERED , PATIENT AWAKE ALERT .
--- NOTE | 2019-05-25 23:39 | NUR ---
ASSIST PATIENT OUT OF BED USE OF BSC , ON 02 NC @ 2 LPM CHEST MOVEMENT SYMMETRICAL SKIN DRY WARM ACTIVITY TOLERATED .
[2019-05-26 00:30] VITALS: BP_SYST 111
[2019-05-26] MEDS: LevALBUTEROL HCL 1.25 MG/0.5 ML *CONC.* VIAL.NEB (XOPENEX CONC.) INH SCH ×4 (00:35→19:38)
[2019-05-26] MEDS: ZOSYN (PIPERACILLIN/TAZO) 2.25 GM in DEX-ISO (50ml) IV SCH ×5 (00:48→23:16)
--- NOTE | 2019-05-26 03:53 | NUR ---
HOURLY ROUNDING PATIENT RESTING VERBALLY RESPONSIVE CALL [place] WITH PATIENT BED TO LOW POSITION / .
--- NOTE | 2019-05-26 06:27 | NUR ---
PHONED PAGED DR SHON OAKES D/T BSG 415 MG DL , ORDERS PENDING .
--- NOTE | 2019-05-26 06:44 | NUR ---
ORDERS FROM DR SHON OAKES FOR BS 415 FOLLOW SLIDING SCALE / .
[2019-05-26] MEDS: INSULIN REGULAR, HUMAN 100 UNITS/ML, 10 ML VIAL (novoLIN R) SUBCUT PRN ×4 (06:48→20:35)
[2019-05-26] MEDS: IPRATROPIUM BROM 0.5 MG/2.5 ML VIAL.NEB (ATROVENT) INH SCH ×3 (07:10→19:38)
--- NOTE | 2019-05-26 07:45 | NUR ---
INITIAL NOTE RECEIVED PT FROM NIGHT RN. PT IS LAYING COMFORTABLY IN BED IN STABLE CONDITION. PT IS ON 2 LITERS OF OXYGEN. BED IS IN LOWEST POSITION, CALL LIGHT WITHIN REACH OF PT. IV IS PATENT AND BENIGN. NO SWELLING OR REDNESS AT THE SITE. WILL CONTINUE TO MONITOR. Addendum: 05/26/19 at 1653 by Morenita Whitehead RN IV IS PATENT, NO SIGNS OF INFECTION OR INFILTRATION NOTED, SALINE LOCK. FALL AND SAFETY PRECAUTIONS IN PLACE.
[2019-05-26 08:15] VITALS: BP_SYST 106
[2019-05-26] MEDS: LISINOPRIL 5 MG TABLET PO SCH (09:00)
[2019-05-26] MEDS: GABAPENTIN 300 MG CAPSULE PO SCH ×3 (09:23→20:16)
[2019-05-26] MEDS: PREDNISONE 20 MG TABLET PO SCH ×2 (09:24→20:17)
[2019-05-26] MEDS: LEVOFLOXACIN 500 MG/D5W 100 ML IV SCH (09:27)
[2019-05-26] MEDS: ENOXAPARIN SODIUM 40 MG/0.4 ML SYRINGE SUBCUT SCH (09:28)
--- NOTE | 2019-05-26 09:30 | NUR ---
PALPITATIONS PATIENTS STATED THAT SHE IS FEELING PALPITATIONS, HEART RATE JUMPS FROM 65-120'S, BLOOD PRESSURE 101/62. MADE AWARE, GAVE NEW ORDER FOR STAT EKG. PT HAS NO OTHER SYMPTOMS, NO HEADACHE OR DIZZINESS.
--- NOTE | 2019-05-26 09:57 | NUR ---
ATRIAL FIBRILLATION EKG SHOWED ATRIAL FIBRILLATION WITH RAPID VENTRICULAR RATE, HEART RATE OF 125, MD MADE AWARE AND GAVE NEW ORDERS TO PLACE PT ON TELEMETRY AND GIVE CARDIZEM 10 MG IV PUSH TIMES ONE.
--- NOTE | 2019-05-26 10:05 | NUR ---
ROUNDING NOTE PATIENT IS LYING IN BED WATCHING TV. SCREEN PRINTING EQUIPMENT SETTER PLACED ON PATIENT PER DR'S ORDERS. PT IS IN STABLE POSITION. PATIENT HAS NO SIGNS OR SYMPTOMS OF DISTRESS, SHORTNESS OF BREATH OR PAIN. WILL CONTINUE TO MONITOR..
[2019-05-26] MEDS ORDERED: DILTIAZEM HCL 25 MG/5 ML VIAL IVP ONE (10:30)
--- NOTE | 2019-05-26 11:03 | NUR ---
IV PLACEMENT: # 22 gauge angiocath placed to left forearm. Use of asceptic technique. Opsite placed over site. Blood return noted. Flushed with 10 cc of normal saline. No evidence of infiltration noted. Patient tolerated. Successful after two attempts. Old iv catheter on right ac accidentally dislodged, catheter intact, no active bleeding noted, dressing in place.
--- NOTE | 2019-05-26 12:15 | NUR ---
ROUNDING NOTE/SERVICE ANIMAL PT IS LAYING COMFORTABLY IN BED. VISITOR AT BEDSIDE. PT HAS NOT SIGNS OR SYMPTOMS OF DISTRESS. PT HAS SERVICE DOG AT BEDSIDE. COMMUNICATED TO PT THE HOSPITAL POLICY REGARDING SERVICE ANIMALS. ASKED PT IF THE SERVICE DOG IS REQUIRED BECAUSE OF A DISABILITY; THE PT ANSWERED "YES." ASKED PT WHAT WORK OR TASK HAS THE DOG BEEN TRAINED TO PERFORM? PT ANSWERED, "THE DOG CAN DETECT WHEN I HAVE HIGH SUGAR AND A HIGH BLOOD PRESSURE." PT'S BED IS IN LOWEST POSITION, CALL LIGHT WITHIN REACH. WILL CONTINUE TO MONITOR.
[2019-05-26 12:49] VITALS: BP_SYST 107
--- NOTE | 2019-05-26 12:52 | NUR ---
CONSULTATION PAGED/CALLED Reason for Consultation: AFIB Person Who was Notified: SPOKE WITH QIANA FROM OFFICE Consulting Physician: VINCE MADRID Lacquer Dipping Machine Operator Specialty: CARDIO Ordering Physician:
--- NOTE | 2019-05-26 12:55 | NUR ---
MD CALL DR VINCE RON, AWAITING CALL BACK TO NOTIFY THAT PATIENT'S HEART RATE CONTINUES TO BE IN THE 140'S, PT ASYMPTOMATIC WITH BP OF 106/76.
[2019-05-26] MEDS ORDERED: DILTIAZEM HCL 25 MG/5 ML VIAL IVP PRN (13:45)
--- NOTE | 2019-05-26 13:45 | NUR ---
MD COMMUNICATION DR DUNNE IN TO SEE PT. IS AWARE OF PT'S CONDITION, AND STATED THE PT HAS A HISTORY OF ATRIAL FIBRILLATION. STATES HE WILL PUT ORDERS IN. WILL CONTINUE TO MONITOR AND CARRY OUT ORDERS.
--- NOTE | 2019-05-26 14:05 | NUR ---
ROUNDS PT IN BED, NO S/S OF DISTRESS OR SOB NOTED, PT HAS NO C/O PAIN AT THIS TIME, PT TALKING TO VISITOR AT BEDSIDE. PATIENT'S HEART RATE CONTINUES TO BE IN THE 120'S, PT ASYMPTOMATIC, WILL CONTINUE TO MONITOR PT FOR ANY CHANGES.
--- NOTE | 2019-05-26 14:37 | NUR ---
Nutrition F/U RD reviewed pt's current EMR including diet Hx, physician notes, nursing notes, pertinent labs/meds/procedures, care trends and care activity. Current Diet Order: [facility] diet x 5 days Subjective information: Pt remains w/ good appetite and eats 100% of meals. Per RN, pt had Atr Fibr episode this morning. Last BM 05/26/19. BG lab values remains elevated. Current PO intake: Good 100% average of 3 meals x 2 days Estimated Energy Expenditure (kcals/day) 4908-9741 kcal/day (30-35 kcal/kg Adj IBW for sepsis) Estimated Protein Required (g/day) 84-112 gm/day (1.5-2 gm/kg Adj IBW for sepsis) Estimated Fluid Required (l/day) 2.5 L/day (30 ml/kg CBW for geriatric maintenance) Problem/Etiology/Signs/Symptoms Inadequate nutritional intakes related to lack of appetite as evidenced by pt report of vomiting x3-4 today. *improved Expected Outcomes/Goals - Monitor appetite and PO intakes w/ goal of pt meeting at least 75% of estimated nutritional needs, labs trending WNL, normal GI function, and skin integrity/wt maintenance Dietitian Recommendations * Recommend [facility] Low Carb diet. Follow Up Mod Risk: F/U in 3-5 days
--- NOTE | 2019-05-26 14:41 | NUR ---
Dietitian Recommendations * [facility]. Please see Nutrition F/U note.
[2019-05-26] MEDS: DILTIAZEM HCL 30 MG TABLET PO SCH ×2 (14:45→22:28)
--- NOTE | 2019-05-26 14:54 | NUR ---
INCREASED HEART RATE/MD ROUNDS DR SHON HERNÁNDEZ MADE AWARE THAT PT'S HEART RATE CONTINUES TO BE IN THE 140'S. MADE AWARE THAT PT RECEIVED PO CARDIZEM BUT THAT HAS CARDIZEM IVP Q4 PRN FOR HEART RATE OVER 130, PER MD TO GIVE 10 MG PRN ORDERED NOW AND CONTINUE TO MONITOR PT. Addendum: 05/26/19 at 1500 by Morenita Whitehead RN PT ASYMPTOMATIC.
--- NOTE | 2019-05-26 16:10 | NUR ---
ROUNDS PT IN BED, NO S/S OF DISTRESS OR SOB NOTED, PT HAS NO C/O PAIN AT THIS TIME, PT IN STABLE CONDITION, PT TALKING TO VISITOR AT BEDSIDE, HEART RATE OF 120. WILL CONTINUE TO MONITOR PT FOR ANY CHANGES. Addendum: 05/26/19 at 1633 by Morenita Whitehead RN PT ASYMPTOMATIC
[2019-05-26 16:57] VITALS: BP_SYST 106
--- NOTE | 2019-05-26 18:30 | NUR ---
CLOSING NOTE PT IN BED. NO S/S OF DISTRESS OR SOB NOTED, PT IN STABLE CONDITION. PT IS ON 2 LITERS OF OXYGEN. BED IS IN LOWEST POSITION, CALL LIGHT WITHIN REACH OF PT. IV IS PATENT, NO SWELLING OR REDNESS AT THE SITE, SALINE LOCK. WILL ENDORSE CARE OF PT TO INCOMING NURSE. FALL AND SAFETY PRECAUTIONS IN PLACE. PATIENT'S HEART RATE IS 93.
[2019-05-26 19:50] VITALS: BP_SYST 103
--- NOTE | 2019-05-26 19:50 | NUR ---
INITIAL NOTE AT INITIAL ASSESSMENT, PATIENT IS RESTING IN BED, STABLE, NO SIGNS OF RESPIRATORY DISTRESS. PATIENT'S FRIEND AND SERVICE DOG ARE AT BEDSIDE. PATIENT VERBALIZES NO PAIN. PLAN OF CARE FOR THE EVENING IS COMMUNICATED WITH THE PATIENT AND HER FRIEND. CALL LIGHT-TEACH BACK IS SUCCESSFUL. BED IS LOCKED, ALARMED, AND AT THE LOWEST LEVEL. FALL, SAFETY, AND RESPIRATORY PRECAUTIONS WILL BE IN PLACE THROUGHOUT THE SHIFT.
[2019-05-26] MEDS: APIXABAN 2.5 MG TABLET PO SCH (20:30)
[2019-05-26] MEDS: MICONAZOLE NITRATE 100 MG/SUPP.VAG EA VG SCH (20:33)
--- NOTE | 2019-05-26 21:50 | NUR ---
NOTE BLOOD SUGAR CHECK AT THIS TIME REQUIRES INSULIN COVERAGE PER SSI ORDERED BY MD. PATIENT IS RESTING IN BED, STABLE, NO SIGNS OF RESPIRATORY DISTRESS. CALL LIGHT IS WITHIN REACH. BED IS LOCKED, ALARMED, AND AT THE LOWEST LEVEL.
--- NOTE | 2019-05-26 23:50 | NUR ---
NOTE PATIENT IS RESTING IN BED, STABLE, NO SIGNS OF RESPIRATORY DISTRESS. FRIEND IS RESTING AT BEDSIDE. CALL LIGHT IS WITHIN REACH. BED IS LOCKED, ALARMED, AND AT THE LOWEST LEVEL.
[2019-05-27] MEDS: LevALBUTEROL HCL 1.25 MG/0.5 ML *CONC.* VIAL.NEB (XOPENEX CONC.) INH SCH ×4 (00:54→19:39)
[2019-05-27] MEDS: IPRATROPIUM BROM 0.5 MG/2.5 ML VIAL.NEB (ATROVENT) INH SCH ×4 (00:54→19:39)
[2019-05-27 00:59] VITALS: BP_SYST 101
--- NOTE | 2019-05-27 01:50 | NUR ---
NOTE PATIENT IS SLEEPING, STABLE, NO SIGNS OF RESPIRATORY DISTRESS. CALL LIGHT IS WITHIN REACH. BED IS LOCKED, ALARMED, AND AT THE LOWEST LEVEL.
--- NOTE | 2019-05-27 03:50 | NUR ---
PATIENT ASSISTED TO BEDSIDE COMMODE PATIENT IS ASSISTED TO THE BEDSIDE COMMODE AT THIS TIME WITH MINIMAL ASSIST. SHE IS REPOSITIONED BACK INTO BED FOR COMFORT. SHE IS STABLE, NO SIGNS OF RESPIRATORY DISTRESS. CALL LIGHT IS WITHIN REACH. BED IS LOCKED, ALARMED, AND AT THE LOWEST LEVEL.
--- NOTE | 2019-05-27 05:15 | NUR ---
NOTE PATIENT IS SLEEPING, STABLE, NO SIGNS OF RESPIRATORY DISTRESS. CALL LIGHT IS WITHIN REACH. BED IS LOCKED, ALARMED, AND AT THE LOWEST LEVEL.
--- NOTE | 2019-05-27 06:31 | NUR ---
CLOSING NOTE PATIENT SLEPT WELL THROUGHOUT THE NIGHT. AT THIS TIME, PATIENT IS RESTING IN BED, STABLE, NO SIGNS OF RESPIRATORY DISTRESS. CALL LIGHT IS WITH REACH. BED IS LOCKED, ALARMED, AND AT THE LOWEST LEVEL. FALL, SAFETY, AND RESPIRATORY PRECAUTIONS HAVE BEEN IN PLACE THROUGHOUT THE SHIFT. WILL CONTINUE TO MONITOR UNTIL SHIFT REPORT IS GIVEN AT BEDSIDE TO AM NURSE.
[2019-05-27] MEDS: ZOSYN (PIPERACILLIN/TAZO) 2.25 GM in DEX-ISO (50ml) IV SCH ×3 (07:01→17:56)
[2019-05-27] MEDS: DILTIAZEM HCL 30 MG TABLET PO SCH ×3 (07:02→21:10)
[2019-05-27] MEDS: INSULIN REGULAR, HUMAN 100 UNITS/ML, 10 ML VIAL (novoLIN R) SUBCUT PRN ×4 (07:07→22:19)
--- NOTE | 2019-05-27 07:30 | NUR ---
RN OPENING NOTE RECEIVED SBAR REPORT FROM ENDORSING RN AT BEDSIDE. SEE VS FLOW SHEET.
[2019-05-27 07:50] VITALS: BP_SYST 110
--- NOTE | 2019-05-27 09:00 | NUR ---
PT'S SERVICE DOG AT BEDSIDE APPROVED BY CHARGE NURSE.
[2019-05-27] MEDS: LEVOFLOXACIN 500 MG/D5W 100 ML IV SCH (09:19)
[2019-05-27] MEDS: APIXABAN 2.5 MG TABLET PO SCH ×2 (09:21→21:06)
[2019-05-27] MEDS: ENOXAPARIN SODIUM 40 MG/0.4 ML SYRINGE SUBCUT SCH (09:21)
[2019-05-27] MEDS: GABAPENTIN 300 MG CAPSULE PO SCH ×3 (09:22→21:06)
[2019-05-27] MEDS: PREDNISONE 20 MG TABLET PO SCH ×2 (09:22→21:06)
--- NOTE | 2019-05-27 10:45 | NUR ---
EDUCATION PT EDUCATED ON PLAN OF CARE AT BEDSIDE
[2019-05-27 12:00] VITALS: BP_SYST 116
--- NOTE | 2019-05-27 14:32 | NUR ---
D/C PENDING DELIVERY OF HOME O2 DEVICE
[2019-05-27] MEDS ORDERED: LEVO750T45 PO (16:57)
[2019-05-27] MEDS ORDERED: APIX5TAB4 PO (16:58)
[2019-05-27] MEDS ORDERED: DILT60TA3 PO (16:59)
[2019-05-27] MEDS ORDERED: PRED20TA PO (16:59)
[2019-05-27 17:06] VITALS: BP_SYST 112
--- NOTE | 2019-05-27 17:30 | NUR ---
DC PLANNING PT STSTAED SHE WILL RETURN TO HER VAN, WHICH IS WHERE SHE AND HER SON LIVE.
--- NOTE | 2019-05-27 18:12 | NUR ---
FOLLOWED UP WITH [facility] (TEL # [phone]) O2 DELIVERY WHICH WILL BE BETWEEN 1999 TO 2129. SPOKE TO
--- NOTE | 2019-05-27 19:09 | NUR ---
CLOSING NOTE SBAR REPORT WILL BE ENDORSED TO RECEIVING RN AT BEDSIDE. SEE VS FLOW SHEET.
[2019-05-27 20:14] VITALS: BP_SYST 106
[2019-05-27] MEDS: MICONAZOLE NITRATE 100 MG/SUPP.VAG EA VG SCH (21:08)
--- NOTE | 2019-05-27 21:34 | NUR ---
Deniz Fried, wetlands conservation laborer for Dr. England s/jerod Deutsch
--- NOTE | 2019-05-27 21:45 | NUR ---
OXYGEN DIRECTOR [facility]OP[facility] [employer]ORATORY WAS HERE PER PATIENT. DELIVERED 6 TANKS ONE HAS O2 TUBING ON IT.WAS NOT NOTIFIED O2 TANKS WERE HERE.
--- NOTE | 2019-05-27 22:13 | NUR ---
Jay RUSSELL ANSWERED PAGE. INFORMED PATIENT BLOOD SUGAR IS IS 514MG/DL.WITH ORDER TO GIVE EXTRA DOSE OF 6 UNITS OF REGULAR INSULIN SUBCUT. INFORMED MD THAT PATIENT IS FOR DISCHARGE ,SAID PT. CAN GO HOME IF RECHECKED BLOOD SUGAR IS BELOW 400MG/DL.
[2019-05-27] MEDS ORDERED: INSULIN REGULAR, HUMAN 100 UNITS/ML, 10 ML VIAL SUBCUT ONE (22:15)
--- NOTE | 2019-05-27 23:40 | NUR ---
BLOOD SUGAR RECHECKED 420MG/DL. LYNN DOUGHERTY MD.
--- NOTE | 2019-05-27 23:45 | NUR ---
paged paged for Dr Fried, dialed . s/w Zbigniew.
--- NOTE | 2019-05-27 23:50 | NUR ---
Jay VIEIRA CALLED BACK,INFORMED BLOOD SUGAR RESULT OF 420MG/DL.TOLD HER PATIENT CALLED HER SON SHOULD BE HERE AT 2330HR UNTIL NOW DID NOT SHOW UP. SAID ,HAS TO WAIT FOR SON TO PICK HER UP. FRIEND AT BEDSIDE CAME OUT OF ROOM SAYING SON CAN NOT COME THIS TIME TO PICK HER UP.
[2019-05-28] MEDS: ZOSYN (PIPERACILLIN/TAZO) 2.25 GM in DEX-ISO (50ml) IV SCH ×2 (00:42→05:42)
[2019-05-28] MEDS: LevALBUTEROL HCL 1.25 MG/0.5 ML *CONC.* VIAL.NEB (XOPENEX CONC.) INH SCH (01:00)
[2019-05-28] MEDS: IPRATROPIUM BROM 0.5 MG/2.5 ML VIAL.NEB (ATROVENT) INH SCH (01:00)
--- NOTE | 2019-05-28 02:00 | NUR ---
PATIENT RESTING QUITELY WITH EYES CLOSE BREATHING PATTERN REGULAR AND OXYGEN ON.
--- NOTE | 2019-05-28 04:30 | NUR ---
WOKE PATIENT FOR VITAL SIGNS ,TO REDO HER DISCHARGE AND FINALIZE READY FOR PRINTING. DENIES SOB NOR CHEST PAIN. AMBULATED TO BATHROOM TO VOID. REFUSE BSC.
[2019-05-28 04:40] VITALS: BP_SYST 101
--- NOTE | 2019-05-28 06:00 | NUR ---
BLOOD SUGAR RESULT 332MG/DL. 6 UNITS OF REGULAR INSULIN GIVEN SUBCUT.DUE IVPB GIVEN.
[2019-05-28] MEDS: DILTIAZEM HCL 30 MG TABLET PO SCH (06:02)
[2019-05-28] MEDS: INSULIN REGULAR, HUMAN 100 UNITS/ML, 10 ML VIAL (novoLIN R) SUBCUT PRN (06:05)
--- NOTE | 2019-05-28 08:00 | NUR ---
initial notes rec patient awake alert having breathing tx. ivf infusing well on the r fa. no infiltration noted. bed to the lowest position and side rails up and locked. call light within reached and knows whent oc all for assistance. no sob noted.
[2019-05-28] MEDS ORDERED: LEVOFLOXACIN 500 MG/D5W 100 ML IV SCH (09:00)
[2019-05-28] MEDS: GABAPENTIN 300 MG CAPSULE PO SCH (09:18)
[2019-05-28] MEDS: PREDNISONE 20 MG TABLET PO SCH (09:18)
[2019-05-28] MEDS: ENOXAPARIN SODIUM 40 MG/0.4 ML SYRINGE SUBCUT SCH (09:20)
[2019-05-28] MEDS: APIXABAN 2.5 MG TABLET PO SCH (09:20)
--- NOTE | 2019-05-28 10:00 | NUR ---
rounds due meds were given and javy well. sitting at bedside.
--- NOTE | 2019-05-28 11:30 | NUR ---
closing notes pt was discharged . was wheeled outside. no sob noted. pt is stable. ivl was removed with id band. instructed re appt with pmd and also discussed new and the reconciled meds.
== END 2019-05-28 11:45 | disposition home or self-care (01) | DRG 871 ==
LOC: SED 20:41 → STU 23:58 → SIC 05-22 00:12 → STU 05-22 17:32 → SMU 05-25 13:45 → STU 05-26 11:49 → SMU 05-28 07:24
PROVIDERS: ADMIT Internal Medicine Hospice and Palliative Medicine; ATTEND Internal Medicine Hospice and Palliative Medicine
DX: A41.59 Other Gram-negative sepsis (principal); J96.01 Acute respiratory failure with hypoxia; J18.9 Pneumonia, unspecified organism; J44.1 Chronic obstructive pulmonary disease with (acute) exacerbation; N39.0 Urinary tract infection, site not specified; J44.0 Chronic obstructive pulmonary disease with (acute) lower respiratory infection; J90 Pleural effusion, not elsewhere classified; I10 Essential (primary) hypertension; R65.20 Severe sepsis without septic shock; E11.65 Type 2 diabetes mellitus with hyperglycemia; E11.42 Type 2 diabetes mellitus with diabetic polyneuropathy; I48.0 Paroxysmal atrial fibrillation; B96.1 Klebsiella pneumoniae [K. pneumoniae] as the cause of diseases classified elsewhere; Z59.0 Homelessness; Z79.01 Long term (current) use of anticoagulants; Z87.891 Personal history of nicotine dependence; Z79.899 Other long term (current) drug therapy
CPT/HCPCS: 36415; 36600; 71045; 71275; 76700-TC; 80053; 81000-TC; 82803-TC; 82962; 83036; 83605; 83880; 84484; 85025; 85610-TC; 85730-TC; 87040-TC; 87081; 87086; 87186-TC; 93005; 93306; 94640; 94760; 96361; 96375; 97116-GP; 97530-GP; 99291; G0378; J1030; J1580; J1650; J1815; J1940; J1956; J2405; J2543; J2930; J3490; J7030; J7040; J7120; J7512; J7612; J7613; Q9967

== ENCOUNTER 2019-06-23 20:03 | Inpatient (IN) | payer OTHER, MEDICAID ==
[~2019-06-23] VITALS: Ht 154.9 cm; Wt 75.3 kg
[~2019-06-23 20:03] MED LIST changes: +APIX5TAB4 PO; +DIF100 PO; +DILT120C89 PO; +DOXY-168 PO; -FLUT1DIS5 INH; -GLIPIZIDE PO; +LEVO750T45 PO; +PRED20TA PO
[2019-06-23 20:37] VITALS: BP_SYST 122
--- NOTE | 2019-06-23 21:56 | NUR ---
Patient to ER bed 03 to gown for evaluation. Side rails up. Report given to ABDIRIZAK Eubanks.
--- NOTE | 2019-06-23 22:07 | NUR ---
Pt BIB homeless friends to ED C/O bilat lower ext swollen for about 1 week, with pain more so on the Left 06/10. Pt stated Med Hx include COPD, DM, HTN. No other injuries and or complaints noted at this time. VSS no s/s of acute distress. Resting on gurney with rails up
--- NOTE | 2019-06-23 23:20 | NUR ---
Dr. Singleton bedside for Pt eval
--- NOTE | 2019-06-23 23:51 | NUR ---
Lab bedside for blood draw, well tolerated
[2019-06-24] VITALS (7 sets, daily range): BP systolic 101–119
[2019-06-24 00:03] LABS: BASOPHILS # (AUTO) 0.1 K/uL (0.0-0.2); BASOPHILS % (AUTO) 0.9 % (0.0-2.0); EOSINOPHILS % (AUTO) 0.5 % (0.0-4.0); HEMATOCRIT 37.3 % (36-48); HEMOGLOBIN 12.6 g/dL (12.0-16.0); LYMPHOCYTES # (AUTO) 2.5 K/uL (1.0-5.5); LYMPHOCYTES % (AUTO) 33.3 % (20.5-51.5); MEAN CORPUSCULAR HEMOGLOBIN 31 pg (27-31); MEAN CORPUSCULAR HGB CONC 34 % (32-36); MEAN CORPUSCULAR VOLUME 92 fL (79.0-98.0); MONOCYTES # (AUTO) 0.6 K/uL (0.0-1.0); NEUTROPHILS # (AUTO) 4.4 K/uL (1.8-7.7); NEUTROPHILS % (AUTO) 57.3 % (40.0-70.0); PLATELET COUNT (AUTO) 157 K/uL (130-430); RED BLOOD CELL COUNT(AUTO) 4.06 MIL/uL (4.2-6.2); RED CELL DISTRIBUTION WIDTH 15.2 % (9.0-15.0); WHITE BLOOD COUNT (AUTO) 7.6 K/uL (4.8-10.8)
[2019-06-24 00:19] LABS: ALBUMIN 2.6 g/dL (3.4-4.8); CALCIUM 8.5 mg/dL (8.4-11.0); CREATININE 1.06 mg/dL (0.55-1.30); POTASSIUM 3.8 mmol/L (3.5-5.1); TOTAL BILIRUBIN 0.4 mg/dL (0.0-1.0)
--- NOTE | 2019-06-24 01:02 | NUR ---
Pt back from Radiology well tolerated. US Tech verbalized that the "Pt is negative for DVT"
--- NOTE | 2019-06-24 01:30 | NUR ---
Dr. Singleton bedside updating Pt regarding possible admission
--- NOTE | 2019-06-24 02:25 | NUR ---
VSS, no s/s of acute distress. Resting on gurney with rails up
--- NOTE | 2019-06-24 03:30 | NUR ---
Dr. Singleton bedside to update Pt on admission process
[2019-06-24] MEDS ORDERED: FUROSEMIDE 20 MG/2 ML VIAL IVP ONE (03:45)
--- NOTE | 2019-06-24 04:30 | NUR ---
ADMISSION NOTE Received patient from ER via gurney. Patient admitted with diagnosis of pleural effusion vs CHF. Patient is awake, alert, oriented X 4. Patient oriented to hospital room, call light, toileting, pain management and safety-teach back done. Patient informed that rissa will be nurse and that their room number is 111A. Personal belongings checked and Belongings List documented. Call light within reach.
--- NOTE | 2019-06-24 04:30 | NUR ---
Patient will be admitted to care of Dr. Fried. Admitted to Telemetry unit. Will go to room 135 first. Belongings list completed. Summary report printed. Report will be given at bedside.
--- NOTE | 2019-06-24 04:30 | NUR ---
Transfer to Telemetry via ACLS protocol. Licensed nurse present. IV present no signs or symptoms of infiltration.
--- NOTE | 2019-06-24 04:40 | NUR ---
Opening notes Patient resting in bed. No signs of distress noted. Breathing is even and unlabored. Patient denies shortness of breath at this time. Patient is alert and oriented x4. IV patent and intact, saline locked. Provided patient with ice water. No other needs. Patient refuses to have bed alarm on. Educated patient on fall precautions. Patient verbalized understanding. Call light with the patient. Bed is locked and in the lowest position.
--- NOTE | 2019-06-24 06:37 | NUR ---
Closing notes Patient asleep in bed. No signs of distress noted. Breathing even and unlabored. IV patent and intact, saline locked. All needs met. Call light with the patient. Safety precautions in place. Will endorse care to day shift RN.
--- NOTE | 2019-06-24 07:20 | NUR ---
AM Notes Received report from endorsing RN. Pt asleep, arousable, equal chest rise and fall. No acute distress noted.
[2019-06-24] MEDS ORDERED: ONDANSETRON HCL 4 MG/2 ML VIAL IVP PRN (07:30)
[2019-06-24] MEDS ORDERED: ACETAMINOPHEN 325 MG TABLET PO PRN (07:30)
[2019-06-24] MEDS ORDERED: ALBUTEROL SULFATE 0.083% 2.5 MG/3 ML VIAL.NEB INH PRN (07:30)
--- NOTE | 2019-06-24 07:30 | NUR ---
CONSULT CARDIOLOGY CHF DR CLARKE S/W SHARLENE
--- NOTE | 2019-06-24 07:30 | NUR ---
CONSULT PULMONARY PLEURAL EFFUSION DR. CORADO S/W DAMARI FROM THE EXCHANGE
[2019-06-24] MEDS ORDERED: INSULIN ASPART 100 UNITS/ML, 10 ML VIAL (NovoLOG) SUBCUT PRN (07:45)
[2019-06-24] MEDS ORDERED: IPRATROPIUM/ALBUTEROL SULFATE 3 ML AMPUL.NEB (DUONEB) INH PRN (07:45)
[2019-06-24 08:17] LABS: BASOPHILS # (AUTO) 0.1 K/uL (0.0-0.2); BASOPHILS % (AUTO) 0.8 % (0.0-2.0); EOSINOPHILS % (AUTO) 0.5 % (0.0-4.0); HEMATOCRIT 38.9 % (36-48); HEMOGLOBIN 13.1 g/dL (12.0-16.0); LYMPHOCYTES # (AUTO) 1.9 K/uL (1.0-5.5); LYMPHOCYTES % (AUTO) 29.3 % (20.5-51.5); MEAN CORPUSCULAR HEMOGLOBIN 31 pg (27-31); MEAN CORPUSCULAR HGB CONC 34 % (32-36); MEAN CORPUSCULAR VOLUME 91 fL (79.0-98.0); MONOCYTES # (AUTO) 0.5 K/uL (0.0-1.0); MONOCYTES % (AUTO) 7.8 % (1.7-9.3); NEUTROPHILS # (AUTO) 4.1 K/uL (1.8-7.7); NEUTROPHILS % (AUTO) 61.6 % (40.0-70.0); PLATELET COUNT (AUTO) 141 K/uL (130-430); RED BLOOD CELL COUNT(AUTO) 4.29 MIL/uL (4.2-6.2); RED CELL DISTRIBUTION WIDTH 14.9 % (9.0-15.0); WHITE BLOOD COUNT (AUTO) 6.6 K/uL (4.8-10.8)
[2019-06-24] MEDS: PREDNISONE 20 MG TABLET PO SCH (08:21)
[2019-06-24] MEDS: DILTIAZEM HCL 120 MG CAP.SR.24H PO SCH (08:21)
[2019-06-24] MEDS: GABAPENTIN 300 MG CAPSULE PO SCH ×3 (08:21→20:42)
[2019-06-24] MEDS: LISINOPRIL 5 MG TABLET PO SCH (08:26)
[2019-06-24 08:54] LABS: ANION GAP 4 (5-15); CALCIUM 8.6 mg/dL (8.4-11.0); CHLORIDE 102 mmol/L (98-107); CREATININE 0.85 mg/dL (0.55-1.30); GFR AFRICAN AMERICAN 85 mL/min (>90); GLUCOSE 232 mg/dL (70-99); POTASSIUM 3.5 mmol/L (3.5-5.1); SODIUM SERUM 138 mmol/L (136-145); TOTAL BILIRUBIN 0.8 mg/dL (0.0-1.0); UREA NITROGEN, BLOOD 15 mg/dL (8-21)
[2019-06-24 08:55] LABS: ALANINE AMINOTRANSFERASE 18 U/L (12-78); ALBUMIN 2.7 g/dL (3.4-4.8); ASPARTATE AMINOTRANSFERASE 9 U/L (10-37)
[2019-06-24] MEDS ORDERED: APIXABAN 2.5 MG TABLET PO SCH (09:00)
[2019-06-24 09:37] LABS: CHOLESTEROL 212 mg/dL (<200); HDL CHOLESTEROL 35 mg/dL (>55); LDL CHOLESTEROL 121 mg/dL (<100); TRIGLYCERIDES 267 mg/dL (30-150)
[2019-06-24] MEDS: FUROSEMIDE 40 MG/4 ML VIAL IVP SCH (10:03)
--- NOTE | 2019-06-24 12:00 | NUR ---
Update Tele monitor showing arrhythmia even after repositioning/replacing leads/electrodes, pt is asymptomatic and states no pain, no acute distress noted.
[2019-06-24] MEDS: INSULIN LISPRO SLIDING SCALE 100 UNITS/ML VIAL (humaLOG) SUBCUT PRN ×3 (12:29→20:46)
[2019-06-24] MEDS: LevALBUTEROL HCL 1.25 MG/0.5 ML *CONC.* VIAL.NEB (XOPENEX CONC.) INH SCH ×2 (13:26→19:51)
[2019-06-24] MEDS: IPRATROPIUM BROM 0.5 MG/2.5 ML VIAL.NEB (ATROVENT) INH SCH ×2 (13:26→19:51)
--- NOTE | 2019-06-24 13:44 | NUR ---
SS Note: ORTHOPEDIC SURGEON met with pt at bedside for assessment. Demographic information verified. Pt is a 68 year old female who came in via ED for "swollen leg" and difficulty breathing. Pt was sleepy during the encounter. Pt states his living situation is the same; living in her van with her son, son's girlfriend, a friend and their dog. Pt states Nicole King, Case Management from HCP has been trying to help her with her current situation/condition. Pt was falling asleep and ORTHOPEDIC SURGEON provided pt with homeless assistance resource. SS will remain available for support and when needed.
[2019-06-24] MEDS: NORMAL SALINE 5 ML DISP.SYRIN IVF SCH ×2 (14:59→20:43)
--- NOTE | 2019-06-24 16:48 | NUR ---
Dr. Bowie return call and was notified regarding pt's rhythm, Dr. Bowie states, "Pt has been afib on eliquis. No new orders from me."
--- NOTE | 2019-06-24 19:01 | NUR ---
Closing Pt states no pain or distress currently. Pt's rhythm also going into ST 150s, asymptomatic, no distress or pain noted. Will endorse plan of care to jewelry bearing maker RN.
--- NOTE | 2019-06-24 19:15 | NUR ---
change of shift.pt.presents quiescent affect;calm.pt.present iv access intact;lock.general status stable.respiratory status stable unlabored @room air.pt.capable to reposition self.call light/telephone w/in the reach of the pt.
--- NOTE | 2019-06-24 20:00 | NUR ---
pt.assessed.v/s assessed;values w/in normal limits.pt.presents no c/o pain,nausea.i have apprised the pt.that snacks/beverages are available w/in the shift.i have provided the demonstration of the utilization of the room telephone.pt.had return the demonstration. pt.had requested melissa kowalski.i have provided the snacks.general status stable.respiratory status stable@room air;02-sat%=96%. call light/telephone placed w/in the reach of the pt.
--- NOTE | 2019-06-24 20:30 | NUR ---
i have assessed the blood glucose;value;310mg/dl i have apprised the pt.of the value.
[2019-06-24] MEDS: APIXABAN 2.5 MG TABLET PO SCH (20:46)
--- NOTE | 2019-06-24 21:00 | NUR ---
2100p medications administered.i have administered humalog;8-units per the sliding braeden.i have administered eliquis; 5mg po;the initial dose.i have apprised the pt.of the frequency;bid;the medication indication;anti-coagulant.
--- NOTE | 2019-06-24 22:00 | NUR ---
pt.assessed.pt.presents quiescent affect;calm,somnolent.general status stable.respiratory status stable:02-sat%=98% @room air.no requests posited @this hour.pt.capable to reposition self.call light/telephone w/in the reach of the pt.
--- NOTE | 2019-06-25 | NUR ---
pt.assessed;v/s assessed;values w/in normal limits.pt.presents no c/o pain,nausea.o2-sat%=98%@room air. general status stable.respiratory status stable;unlabored.pt.capable to reposition self.call light/telephone w/in the reach of the pt.
[2019-06-25] MEDS: IPRATROPIUM BROM 0.5 MG/2.5 ML VIAL.NEB (ATROVENT) INH SCH ×4 (01:00→19:59)
[2019-06-25] MEDS: LevALBUTEROL HCL 1.25 MG/0.5 ML *CONC.* VIAL.NEB (XOPENEX CONC.) INH SCH ×4 (01:00→19:59)
[2019-06-25 01:58] VITALS: BP_SYST 97
--- NOTE | 2019-06-25 02:00 | NUR ---
pt.assessed.pt.presents quiescent affect;calm,somnolent.general status stable.respiratory status stable;unlabored@room air. pt.capable to reposition self.call light/telephone w/in the reach of the pt.
--- NOTE | 2019-06-25 04:00 | NUR ---
pt.assessed.pt.presents quiescent affect;calm,somnolent.general status stable.respiratory status stable:02-sat%=96% unlabored.pt.capable to reposition self.call light/telephone w/in the reach of the pt.
[2019-06-25] MEDS: NORMAL SALINE 5 ML DISP.SYRIN IVF SCH ×3 (05:36→22:02)
[2019-06-25] MEDS: INSULIN LISPRO SLIDING SCALE 100 UNITS/ML VIAL (humaLOG) SUBCUT PRN ×4 (06:00→21:57)
[2019-06-25 06:22] LABS: BASOPHILS # (AUTO) 0.1 K/uL (0.0-0.2); EOSINOPHILS % (AUTO) 0.6 % (0.0-4.0); HEMATOCRIT 37.5 % (36-48); HEMOGLOBIN 12.9 g/dL (12.0-16.0); LYMPHOCYTES # (AUTO) 2.6 K/uL (1.0-5.5); LYMPHOCYTES % (AUTO) 35.7 % (20.5-51.5); MEAN CORPUSCULAR HEMOGLOBIN 31 pg (27-31); MEAN CORPUSCULAR HGB CONC 34 % (32-36); MEAN CORPUSCULAR VOLUME 90 fL (79.0-98.0); MONOCYTES # (AUTO) 0.6 K/uL (0.0-1.0); MONOCYTES % (AUTO) 7.9 % (1.7-9.3); NEUTROPHILS % (AUTO) 54.8 % (40.0-70.0); PLATELET COUNT (AUTO) 161 K/uL (130-430); RED BLOOD CELL COUNT(AUTO) 4.18 MIL/uL (4.2-6.2); WHITE BLOOD COUNT (AUTO) 7.2 K/uL (4.8-10.8)
--- NOTE | 2019-06-25 06:31 | NUR ---
pt.assessed.pi have assessed the blood glucose;value;186/mg/dl.i have administered 2-units;humalog insulin. i have weighed the pt;2/t chf.call light/telephone placed w/in the reach of the pt.no c/om pain,nausea.no requests posited @this hour.
[2019-06-25 06:39] LABS: ALBUMIN 2.4 g/dL (3.4-4.8); CALCIUM 8.4 mg/dL (8.4-11.0); CREATININE 0.96 mg/dL (0.55-1.30); POTASSIUM 3.5 mmol/L (3.5-5.1); TOTAL BILIRUBIN 0.5 mg/dL (0.0-1.0)
--- NOTE | 2019-06-25 07:30 | NUR ---
Opening Note: Patient in bed resting. Patient denies pain and discomfort. Breathing is even and unlabored with no distress noted. IV patent and intact. Safety precautions in place; bed in lowest position, wheels locked, side rails x3, bed alarm activated and call light within reach. Will continue to monitor.
[2019-06-25 08:14] VITALS: BP_SYST 105
[2019-06-25] MEDS: PREDNISONE 20 MG TABLET PO SCH (08:24)
[2019-06-25] MEDS: GABAPENTIN 300 MG CAPSULE PO SCH ×3 (08:25→21:51)
[2019-06-25] MEDS: DILTIAZEM HCL 120 MG CAP.SR.24H PO SCH (08:25)
[2019-06-25] MEDS: LISINOPRIL 5 MG TABLET PO SCH (08:25)
[2019-06-25] MEDS: APIXABAN 2.5 MG TABLET PO SCH ×2 (08:27→21:53)
[2019-06-25] MEDS: FUROSEMIDE 40 MG/4 ML VIAL IVP SCH (08:29)
--- NOTE | 2019-06-25 11:55 | NUR ---
Accucheck: Blood sugar 413, covered with 12 units Humalog per sliding scale, see eMAR. Will inform Dr. England.
[2019-06-25 12:04] VITALS: BP_SYST 101
--- NOTE | 2019-06-25 12:17 | NUR ---
Paging Dr. England: Paging Dr. England regarding blood sugar of 413, awaiting callback and orders.
[2019-06-25] MEDS ORDERED: POTASSIUM CHLORIDE 20 MEQ TAB.PRT.SR PO ONE (14:30)
--- NOTE | 2019-06-25 14:36 | NUR ---
Rounds: Patient in bed resting. No distress noted. Medications tolerated well. No needs at this time. Will continue to monitor.
--- NOTE | 2019-06-25 15:01 | NUR ---
Spoke to Dr. England: Spoke to Dr. England, made aware of elevated blood sugar. Dr. England made aware that patient was on Lantus 10 units QHS during her last admission. Orders received. Orders to be entered by RN.
--- NOTE | 2019-06-25 16:21 | NUR ---
Decreased BP: Patient's BP reading on left upper arm 71/40, reading 68/44 on right upper arm. BP reading is 91/34 on left lower leg. Dr. Garcia at bedside and made aware. Patient is awake and verbal. No distress noted. Heart rate ranging between 70-75. Patient placed in Trendelenburg position. Per. Dr. Lyle retake BP in 10 minutes and inform him of any changes. Hold any IV bolus of fluids for now. RN at bedside. Patient remains SR on night monitor.
--- NOTE | 2019-06-25 16:24 | NUR ---
Decreased BP: Patient's BP reading on left upper arm 71/40, reading 68/44 on right upper arm. BP reading is 91/34 on left lower leg. Dr. Garcia at bedside and made aware. Patient is awake and verbl Addendum: 06/25/19 at 1632 by Una Coronel RN Disregard note, entered in error.
--- NOTE | 2019-06-25 16:34 | NUR ---
BP Reassessment: Blood pressure 74/40, HR 69. Dr. Lyle at bedside. Orders for NS 250 IV bolus received. Orders to be carried out.
[2019-06-25 16:38] VITALS: BP_SYST 91
[2019-06-25] MEDS ORDERED: NS 250 ML IV ONE (16:45)
--- NOTE | 2019-06-25 17:15 | NUR ---
BP/Accucheck: NS 250 IV Bolus given, BP 80/48, HR 68. Will reassess in [address] Lyle if BP remains low. Patient is awake and alert talking on phone to family member. Skin is dry and warm to touch. No cyanosis noted. Patient states "I'm feeling okay." Blood sugar 411, covered with 12 units Humalog per sliding scale, see eMAR.
--- NOTE | 2019-06-25 17:30 | NUR ---
BP Recheck: Blood pressure 98/53, HR 67. Patient states she is still feeling okay, going to sit up and have dinner. No signs of distress noted. Will continue to monitor.
--- NOTE | 2019-06-25 18:39 | NUR ---
Closing Note: Patient in bed resting. Patient denies pain and discomfort. Breathing is even and unlabored with no distress noted. IV patent and intact. Safety precautions in place; bed in lowest position, wheels locked, side rails x3, bed alarm activated and call light within reach. All needs met. Will endorse plan of care to NOC, nurse.
[2019-06-25 19:45] VITALS: BP_SYST 74; BP_SYST 91
--- NOTE | 2019-06-25 19:45 | NUR ---
INITIAL NOTES: PATIENT IN BED TALKING WITH FAMILY VIA CELL PHONE,ORIENTED X4. SKIN WARM AND DRY. DENIES SOB NOR PAIN. A FRIEND JUST CAME FOR A VISITS.DENIES DIZZINESS .BP ON LEFT ARM 76/43 ON 30 DEG, HOB ,PLACED ON SUPINE 81/49, LEFT LEG 90/44. BLOOD PRESSURE ON SUPINE , RIGHT ARM 76/43, RT. LEG 93/46. CONVERSING TO A FRIEND. AMBULATED TO BATHROOM WITH SLIGHT LIGHTHEADEDNESS. ADVICE TO CALL FOR HELP. CALL LIGHT WITHIN REACH,WATCHING TV ,BED IN LOW POSITION. SALIN LOCK PATENT. ON OXYGEN 2 LITERS PER N/C. NO LEG EDEMA. HAD A GOOD DINNER.
--- NOTE | 2019-06-25 20:00 | NUR ---
HOSPITAL PRODUCT SPECIALIST MADE AWARE OF LOW BP. WILL MONITOR CLOSELY.NO CHEST PAIN .TALKING TO HER FRIEND.
[2019-06-25] MEDS ORDERED: INSULIN GLARGINE 100 UNITS/ML 10 ML VIAL SUBCUT SCH (21:00)
--- NOTE | 2019-06-25 21:50 | NUR ---
MEDS ADMIN/BLOOD SUGAR: DUE MEDS GIVEN. EATING EATING PUDDING AND HAD TURKEY SANDWICH. DENIES CHEST PAIN NOR SOB. BLOOD SUGAR 417MG/DL. COVERED WITH 12 UNITS HUMOLOG AND LANTUS 10 UNITS. WILL NOTIFY
--- NOTE | 2019-06-25 22:30 | NUR ---
BP ON LEFT UPPER ARM 76/43 ,FLAT BED 81/49., LEFT LEG 90/44. BP RT.UPPER ARM FLAT ON BED 83/49 ,RT. LEG 92/43. DENIES CHEST PAIN NOR SOB. RURAL CARRIER ASSOCIATE AWARE. WILL MONITOR CLOSELY.
--- NOTE | 2019-06-25 22:37 | NUR ---
PAGED PAGED DOCTOR SCOTT FOR ORDERS
--- NOTE | 2019-06-25 23:20 | NUR ---
2ND PAGED PAGED DOCTOR SCOTT
[2019-06-25 23:30] VITALS: BP_SYST 81
--- NOTE | 2019-06-25 23:35 | NUR ---
AMBULATED TO BATHROOM WITH ASSIST BY DIRECTOR OF SCIENTIFIC RESEARCH .URINE COLOR GILBERT. HAD LIGHT HEADEDNESS, ON WAY BACK TO BED.
--- NOTE | 2019-06-26 00:01 | NUR ---
[id number] TIME PAGED DOCTOR SCOTT
--- NOTE | 2019-06-26 00:05 | NUR ---
Jay VIEIRA CALLED BACK. NOTIFIED ABOUT LOW BP AND HIGH BLOOD SUGAR. ORDERED NS 100ML IV BOLUS ONLY .AND NO FURTHER INSULIN FOR 417MG/DL.
[2019-06-26] MEDS ORDERED: NS 250 ML IV ONE (00:15)
[2019-06-26] MEDS: LevALBUTEROL HCL 1.25 MG/0.5 ML *CONC.* VIAL.NEB (XOPENEX CONC.) INH SCH ×3 (01:20→15:28)
[2019-06-26] MEDS: IPRATROPIUM BROM 0.5 MG/2.5 ML VIAL.NEB (ATROVENT) INH SCH ×3 (01:20→15:28)
[2019-06-26 04:30] VITALS: BP_SYST 108
--- NOTE | 2019-06-26 04:30 | NUR ---
BP 108/64 ,SUPINE POSITION SLEEPING. NO DISTRESS.
[2019-06-26] MEDS: NORMAL SALINE 5 ML DISP.SYRIN IVF SCH ×2 (06:17→14:34)
[2019-06-26] MEDS: INSULIN LISPRO SLIDING SCALE 100 UNITS/ML VIAL (humaLOG) SUBCUT PRN ×2 (06:32→11:38)
--- NOTE | 2019-06-26 06:45 | NUR ---
CLOSING: BLOOD SUGAR 210 MG/DL COVERED WITH SLIDING SCALE. NO ACUTE CARDIOPULMONARY DISTRESS. ALL NEEDS WERE MET.
[2019-06-26 07:01] LABS: CALCIUM 8.6 mg/dL (8.4-11.0); CREATININE 1.11 mg/dL (0.55-1.30); GLUCOSE 221 mg/dL (70-99); UREA NITROGEN, BLOOD 28 mg/dL (8-21)
[2019-06-26 07:10] LABS: CHLORIDE 100 mmol/L (98-107); POTASSIUM 4.8 mmol/L (3.5-5.1); SODIUM SERUM 133 mmol/L (136-145)
[2019-06-26 07:20] LABS: ANION GAP < 3 (5-15); GFR AFRICAN AMERICAN 62 mL/min (>90)
[2019-06-26] MEDS ORDERED: PREDNISONE 10 MG TABLET PO SCH (08:00)
[2019-06-26 08:02] VITALS: BP_SYST 96
[2019-06-26] MEDS: DILTIAZEM HCL 120 MG CAP.SR.24H PO SCH (09:00)
[2019-06-26] MEDS: LISINOPRIL 5 MG TABLET PO SCH (09:00)
[2019-06-26] MEDS: GABAPENTIN 300 MG CAPSULE PO SCH ×2 (09:25→14:33)
[2019-06-26] MEDS: APIXABAN 2.5 MG TABLET PO SCH (09:27)
--- NOTE | 2019-06-26 11:26 | NUR ---
Bib Conn: Allening Dr. Conn regarding discharge order. Awaiting callback. Addendum: 06/26/19 at 1131 by Una Coronel RN Spoke to eliseo Osorio to discharge patient to SNF.
[2019-06-26 11:38] VITALS: BP_SYST 109
--- NOTE | 2019-06-26 11:39 | NUR ---
Accucheck: Blood sugar 303, covered with 8 units Humalog per sliding scale, see eMAR.
--- NOTE | 2019-06-26 11:54 | NUR ---
SNF Availability: [facility] - Room [address] [place] [address] (Nurse to call for report) Transportation: [facility] ambulance will mushroom picker patient at 3pm Nurse Una made aware Dr. England made aware Patient made aware and is agreeable. Nicole Markham, HCP Project Management Intern
[2019-06-26 12:45] VITALS: BP_SYST 109
--- NOTE | 2019-06-26 12:49 | NUR ---
Called Family: Called sister Bebe Melo, made aware of patient's transfer to [facility].
--- NOTE | 2019-06-26 12:51 | NUR ---
Called Report: Called [facility] and gave report to Mansoor REVELES. All questions answered and call back number given.
[2019-06-26 15:15] VITALS: BP_SYST 126
--- NOTE | 2019-06-26 15:20 | NUR ---
D/C Patient Patient given medication reconciliation form and D/C instructions. Exit Care provided. Patient verbalized understanding. MD discussed with patient the results and treatment provided. Ambulatory with steady gait. Patient in stable condition, ID band removed. IV catheter removed, intact and dressing applied, no active bleeding. Patient educated on pain management. All belongings sent with patient. Patient placed in pink gown and blanket. White wrist band with name and placed. Transferred to [facility] by [facility] ambulance.
== END 2019-06-26 15:20 | DRG 189 ==
LOC: SED 20:03 → STU 06-24 04:07
PROVIDERS: ADMIT Internal Medicine; ATTEND Internal Medicine
DX: J96.21 Acute and chronic respiratory failure with hypoxia (principal); J44.1 Chronic obstructive pulmonary disease with (acute) exacerbation; I48.0 Paroxysmal atrial fibrillation; N18.3 Chronic kidney disease, stage 3 (moderate); E11.22 Type 2 diabetes mellitus with diabetic chronic kidney disease; E66.9 Obesity, unspecified; F03.90 Unspecified dementia, unspecified severity, without behavioral disturbance, psychotic disturbance, mood disturbance, and anxiety; E11.40 Type 2 diabetes mellitus with diabetic neuropathy, unspecified; G47.30 Sleep apnea, unspecified; I13.10 Hypertensive heart and chronic kidney disease without heart failure, with stage 1 through stage 4 chronic kidney disease, or unspecified chronic kidney disease; Z79.01 Long term (current) use of anticoagulants; Z79.899 Other long term (current) drug therapy; Z90.49 Acquired absence of other specified parts of digestive tract; Z59.0 Homelessness; Z68.31 Body mass index [BMI] 31.0-31.9, adult
CPT/HCPCS: 36415; 71045; 71250-TC; 80048; 80053; 80061; 82962; 83036; 83880; 84484; 85025; 85379; 87081; 93970; 94640; 94760; 96374; 99285; G0378; J1815; J1940; J7050; J7512; J7612

== ENCOUNTER 2019-12-21 17:55 | Emergency (ER) | payer OTHER, MEDICAID ==
[~2019-12-21] VITALS: Ht 154.9 cm; Wt 81.6 kg
[~2019-12-21 17:55] MED LIST changes: -DIF100 PO; -DOXY-168 PO; -LEVO750T45 PO; -PRED20TA PO
[2019-12-21 18:19] VITALS: BP_SYST 129
--- NOTE | 2019-12-21 18:33 | NUR ---
Pt to [facility]
--- NOTE | 2019-12-21 18:44 | NUR ---
Patient to ER bed 07 to gown for evaluation. Side rails up.
--- NOTE | 2019-12-21 18:45 | NUR ---
Pt brought by self, A&Ox4, pt presents to ER with c/o L side sharp headache and blurry vision on L eye for 2 days, per patient this is the first time suffering with symptoms, pt able to ambulate, no focalized weakness, denies N/V, no facial dropping, cap refill <3, strong christina order booker, skin pink and warm, pt has Hx of COPD, christina lower extremities edema noted, denies chest pain, will cont to monitor.
[2019-12-21] MEDS ORDERED: KETOROLAC TROMETHAMINE 60 MG/2 ML VIAL IM ONE (19:30)
[2019-12-21] MEDS ORDERED: NACL 0.9% 1,000 ML IV ONE (19:52)
--- NOTE | 2019-12-21 20:11 | NUR ---
Pt off the unit for CT
[2019-12-21 20:30] LABS: BASOPHILS # (AUTO) 0.1 K/uL (0.0-0.2); EOSINOPHILS # (AUTO) 0.3 K/uL (0.0-0.4); EOSINOPHILS % (AUTO) 3.3 % (0.0-4.0); HEMATOCRIT 41.5 % (36-48); HEMOGLOBIN 13.6 g/dL (12.0-16.0); LYMPHOCYTES # (AUTO) 3.3 K/uL (1.0-5.5); LYMPHOCYTES % (AUTO) 32.9 % (20.5-51.5); MEAN CORPUSCULAR HEMOGLOBIN 29 pg (27-31); MEAN CORPUSCULAR HGB CONC 33 % (32-36); MEAN CORPUSCULAR VOLUME 88 fL (79.0-98.0); MONOCYTES # (AUTO) 0.6 K/uL (0.0-1.0); MONOCYTES % (AUTO) 5.6 % (1.7-9.3); NEUTROPHILS # (AUTO) 5.8 K/uL (1.8-7.7); NEUTROPHILS % (AUTO) 57.2 % (40.0-70.0); PLATELET COUNT (AUTO) 227 K/uL (130-430); RED BLOOD CELL COUNT(AUTO) 4.69 MIL/uL (4.2-6.2); RED CELL DISTRIBUTION WIDTH 14.6 % (9.0-15.0); WHITE BLOOD COUNT (AUTO) 10.1 K/uL (4.8-10.8)
--- NOTE | 2019-12-21 20:30 | NUR ---
Pt returned from CT on stable condition
[2019-12-21 20:42] LABS: ANION GAP 4 (5-15); CALCIUM 8.6 mg/dL (8.4-11.0); CHLORIDE 103 mmol/L (98-107); GLUCOSE 100 mg/dL (70-99); POTASSIUM 4.3 mmol/L (3.5-5.1); SODIUM SERUM 139 mmol/L (136-145); UREA NITROGEN, BLOOD 13 mg/dL (8-21)
[2019-12-21 20:48] LABS: ALANINE AMINOTRANSFERASE 16 U/L (12-78); ALBUMIN 3.4 g/dL (3.4-4.8); ASPARTATE AMINOTRANSFERASE 8 U/L (10-37); TOTAL BILIRUBIN 0.5 mg/dL (0.0-1.0)
[2019-12-21 20:56] LABS: BILIRUBIN,URINE NEGATIVE (NEGATIVE); BLOOD, URINE 1+ (NEGATIVE); CLARITY/URINE SL CLOUDY (CLEAR); COLOR,URINE YELLOW (YELLOW); GLUCOSE,URINE NEGATIVE (NEGATIVE); KETONES,URINE NEGATIVE (NEGATIVE); LEUKOCYTE ESTERASE ,URINE 2+ (NEGATIVE); NITRITE, URINE NEGATIVE (NEGATIVE); PROTEIN URINE NEGATIVE (NEGATIVE)
[2019-12-21 21:07] LABS: BARBITURATE, URINE NEGATIVE (NEG <=200); BENZODIAZEPINE, URINE NEGATIVE (NEG <=150); CANNABINOID, URINE NEGATIVE (NEG <=50); COCAINE, URINE NEGATIVE (NEG <=150); METHAMPHETAMINES SCREEN,URINE NEGATIVE (NEG <=500); OPIATE, URINE NEGATIVE (NEG <=100); PHENCYCLIDINE SCREEN,URINE NEGATIVE (NEG <=25); UR TRICYCLIC ANTIDEPRESSANTS NEGATIVE (NEG <=300); URINE AMPHETAMINE NEGATIVE (NEG <=500); URINE METHADONE NEGATIVE (NEG <=200); URINE OXYCODONE SCREEN NEGATIVE (NEG <=100); URINE PROPOXYPHENE SCREEN NEGATIVE (NEG <=300)
[2019-12-21 21:16] LABS: BACTERIA,URINE FEW /HPF (None Seen); WBC,URINE 50-80 /HPF (0-3)
--- NOTE | 2019-12-21 21:25 | NUR ---
Pt A&Ox4, VSS, respirations even and unlabored
[2019-12-21] MEDS ORDERED: cefTRIAXone 1 GM IVPB PREMIX 50 ML IV ONE (21:45)
[2019-12-21 23:00] VITALS: BP_SYST 129
--- NOTE | 2019-12-21 23:00 | NUR ---
Patient given written and verbal discharge instructions and verbalizes understanding. ER MD discussed with patient the results and treatment provided. Patient in stable condition. ID arm band removed. Rx of Bactrim given. Patient educated on pain management and to follow up with PMD. Pain Scale 0/10 . Opportunity for questions provided and answered. Medication side effect fact sheet provided.
== END 2019-12-21 23:00 | disposition home or self-care (01) ==
LOC: SED 17:55
DX: N39.0 Urinary tract infection, site not specified (principal); G47.30 Sleep apnea, unspecified; E11.9 Type 2 diabetes mellitus without complications; I10 Essential (primary) hypertension; Z87.442 Personal history of urinary calculi; Z90.49 Acquired absence of other specified parts of digestive tract; Z79.899 Other long term (current) drug therapy
CPT/HCPCS: 36415; 70450; 71045; 80053; 80307; 81000; 84484; 85025; 85610; 85730; 87040; 87086; 93005; 96365; 96372; 99284; J0696; J1885; J7030

== ENCOUNTER 2020-03-15 14:01 | Inpatient (IN) | payer OTHER, MEDICAID, SELFPAY ==
[~2020-03-15] VITALS: Ht 154.9 cm; Wt 83.0 kg
[2020-03-15 14:10] VITALS: BP_SYST 133
[2020-03-15] MEDS ORDERED: IPRATROPIUM BROM 0.5 MG/2.5 ML VIAL.NEB (ATROVENT) INH ONE (14:30)
[2020-03-15] MEDS ORDERED: methylPREDNISolone SOD SUCC/PF 62.5 MG/ML VIAL IVP ONE (14:30)
[2020-03-15] MEDS ORDERED: ALBUTEROL SULFATE 0.083% 2.5 MG/3 ML VIAL.NEB INH ONE ×2 (14:30→16:15)
[2020-03-15 16:04] LABS: BASOPHILS # (AUTO) 0.2 K/uL (0.0-0.2); BASOPHILS % (AUTO) 2.1 % (0.0-2.0); EOSINOPHILS # (AUTO) 0.2 K/uL (0.0-0.4); HEMATOCRIT 42.6 % (36-48); LYMPHOCYTES # (AUTO) 3.4 K/uL (1.0-5.5); LYMPHOCYTES % (AUTO) 32.9 % (20.5-51.5); MEAN CORPUSCULAR HEMOGLOBIN 30 pg (27-31); MEAN CORPUSCULAR HGB CONC 33 % (32-36); MEAN CORPUSCULAR VOLUME 91 fL (79.0-98.0); MONOCYTES # (AUTO) 0.8 K/uL (0.0-1.0); MONOCYTES % (AUTO) 7.6 % (1.7-9.3); NEUTROPHILS # (AUTO) 5.6 K/uL (1.8-7.7); NEUTROPHILS % (AUTO) 55.4 % (40.0-70.0); PLATELET COUNT (AUTO) 173 K/uL (130-430); RED BLOOD CELL COUNT(AUTO) 4.67 MIL/uL (4.2-6.2); RED CELL DISTRIBUTION WIDTH 14.7 % (9.0-15.0); WHITE BLOOD COUNT (AUTO) 10.2 K/uL (4.8-10.8)
[2020-03-15 16:09] LABS: ANION GAP 4 (5-15); CALCIUM 8.8 mg/dL (8.4-11.0); CHLORIDE 101 mmol/L (98-107); CREATININE 1.15 mg/dL (0.55-1.30); GLUCOSE 116 mg/dL (70-99); POTASSIUM 4.9 mmol/L (3.5-5.1); SODIUM SERUM 139 mmol/L (136-145); UREA NITROGEN, BLOOD 18 mg/dL (8-21)
[2020-03-15 16:18] LABS: ALANINE AMINOTRANSFERASE 16 U/L (12-78); ALBUMIN 3.5 g/dL (3.4-4.8); ASPARTATE AMINOTRANSFERASE 14 U/L (10-37); TOTAL BILIRUBIN 0.4 mg/dL (0.0-1.0)
[2020-03-15] MEDS ORDERED: AZITHROMYCIN 250 MG TABLET PO ONE (17:30)
[2020-03-15] MEDS ORDERED: cefTRIAXone 1 GM VIAL IM ONE (17:30)
[2020-03-15] MEDS ORDERED: MAGNESIUM SULFATE 1 GM/2 ML VIAL IVP ONE (18:30)
[2020-03-15 20:13] VITALS: BP_SYST 115
[2020-03-15] MEDS ORDERED: HYDROcodone/ACETAMIN 5-325 MG TAB (NORCO/ VICODIN) PO PRN (20:15)
[2020-03-15] MEDS ORDERED: ACETAMINOPHEN 325 MG TABLET PO PRN (20:15)
[2020-03-15] MEDS ORDERED: ALBUTEROL MDI INHALATION 8 GM INH INH PRN (20:15)
[2020-03-15] MEDS: INSULIN REGULAR, HUMAN 100 UNITS/ML, 10 ML VIAL (humuLIN R) SUBCUT PRN (21:59)
[2020-03-16 00:02] VITALS: BP_SYST 114
[2020-03-16 06:51] LABS: BASOPHILS % (AUTO) 0.6 % (0.0-2.0); HEMATOCRIT 39.7 % (36-48); HEMOGLOBIN 13.1 g/dL (12.0-16.0); LYMPHOCYTES # (AUTO) 1.2 K/uL (1.0-5.5); LYMPHOCYTES % (AUTO) 20.6 % (20.5-51.5); MEAN CORPUSCULAR HEMOGLOBIN 30 pg (27-31); MEAN CORPUSCULAR HGB CONC 33 % (32-36); MEAN CORPUSCULAR VOLUME 90 fL (79.0-98.0); MONOCYTES # (AUTO) 0.3 K/uL (0.0-1.0); MONOCYTES % (AUTO) 5.1 % (1.7-9.3); NEUTROPHILS # (AUTO) 4.1 K/uL (1.8-7.7); NEUTROPHILS % (AUTO) 73.7 % (40.0-70.0); PLATELET COUNT (AUTO) 169 K/uL (130-430); RED BLOOD CELL COUNT(AUTO) 4.43 MIL/uL (4.2-6.2); RED CELL DISTRIBUTION WIDTH 14.4 % (9.0-15.0); WHITE BLOOD COUNT (AUTO) 5.6 K/uL (4.8-10.8)
[2020-03-16 07:09] LABS: ALANINE AMINOTRANSFERASE 16 U/L (12-78); ANION GAP 4 (5-15); ASPARTATE AMINOTRANSFERASE 11 U/L (10-37); CALCIUM 8.4 mg/dL (8.4-11.0); CHLORIDE 101 mmol/L (98-107); CREATININE 1.03 mg/dL (0.55-1.30); GLUCOSE 152 mg/dL (70-99); POTASSIUM 5.1 mmol/L (3.5-5.1); SODIUM SERUM 138 mmol/L (136-145); TOTAL BILIRUBIN 0.4 mg/dL (0.0-1.0); UREA NITROGEN, BLOOD 17 mg/dL (8-21)
[2020-03-16 09:08] VITALS: BP_SYST 126
[2020-03-16 12:05] VITALS: BP_SYST 105
[2020-03-16 12:09] LABS: C-REACTIVE PROTEIN QUANT 1.1 mg/dL (0-0.5)
[2020-03-16 17:28] VITALS: BP_SYST 105
[2020-03-16] MEDS: AZITHROMYCIN 500 MG in NS 250 ML IV SCH (17:28)
[2020-03-16] MEDS: cefTRIAXone 1 GM IVPB PREMIX 50 ML IV SCH (17:28)
[2020-03-16] MEDS ORDERED: cefTRIAXone 1 GM IVPB PREMIX 50 ML IV SCH (19:00)
[2020-03-16] MEDS ORDERED: AZITHROMYCIN 500 MG in NS 250 ML IV SCH (19:00)
[2020-03-16] MEDS ORDERED: methylPREDNISolone SOD SUCC 40 MG/ML VIAL IVP ONE (19:30)
[2020-03-16] MEDS ORDERED: BUDESONIDE 0.5 MG/2 ML AMPUL.NEB INH ONE (19:30)
[2020-03-16] MEDS ORDERED: IPRATROPIUM/ALBUTEROL SULFATE 3 ML AMPUL.NEB (DUONEB) INH ONE (19:30)
[2020-03-16 19:32] VITALS: BP_SYST 105
[2020-03-16 20:00] VITALS: BP_SYST 123
[2020-03-16] MEDS: IPRATROPIUM/ALBUTEROL SULFATE 3 ML AMPUL.NEB (DUONEB) INH SCH (23:17)
[2020-03-17 00:02] VITALS: BP_SYST 116
[2020-03-17] MEDS: IPRATROPIUM/ALBUTEROL SULFATE 3 ML AMPUL.NEB (DUONEB) INH SCH ×6 (03:33→23:49)
[2020-03-17] MEDS: INSULIN REGULAR, HUMAN 100 UNITS/ML, 10 ML VIAL (humuLIN R) SUBCUT PRN ×4 (06:07→21:04)
[2020-03-17] MEDS: BUDESONIDE 0.5 MG/2 ML AMPUL.NEB INH SCH ×2 (07:00→20:42)
[2020-03-17] MEDS: methylPREDNISolone SOD SUCC 40 MG/ML VIAL IVP SCH (08:32)
[2020-03-17 09:05] VITALS: BP_SYST 114
[2020-03-17 12:22] VITALS: BP_SYST 121
[2020-03-17 16:43] VITALS: BP_SYST 100
[2020-03-17] MEDS: AZITHROMYCIN 500 MG in NS 250 ML IV SCH (16:47)
[2020-03-17] MEDS: cefTRIAXone 1 GM IVPB PREMIX 50 ML IV SCH (16:47)
[2020-03-17 20:55] VITALS: BP_SYST 116
[2020-03-17 23:45] VITALS: BP_SYST 122
[2020-03-18] MEDS: IPRATROPIUM/ALBUTEROL SULFATE 3 ML AMPUL.NEB (DUONEB) INH SCH ×3 (07:08→15:07)
[2020-03-18] MEDS: BUDESONIDE 0.5 MG/2 ML AMPUL.NEB INH SCH (07:08)
[2020-03-18] MEDS: methylPREDNISolone SOD SUCC 40 MG/ML VIAL IVP SCH (09:15)
[2020-03-18] MEDS ORDERED: LEVO500T89 PO (10:27)
[2020-03-18] MEDS ORDERED: PRED20TA PO (10:27)
[2020-03-18] MEDS: INSULIN REGULAR, HUMAN 100 UNITS/ML, 10 ML VIAL (humuLIN R) SUBCUT PRN ×2 (12:23→16:52)
[2020-03-18 12:39] VITALS: BP_SYST 128
[2020-03-18 16:35] VITALS: BP_SYST 111
[2020-03-18] MEDS: AZITHROMYCIN 500 MG in NS 250 ML IV SCH (16:46)
[2020-03-18] MEDS: cefTRIAXone 1 GM IVPB PREMIX 50 ML IV SCH (16:50)
[2020-03-18 17:48] VITALS: BP_SYST 125
== END 2020-03-18 19:20 | disposition home or self-care (01) | DRG 193 ==
LOC: SED 14:01 → STU 18:47 → EEVIPCON 18:47 → STU 19:44 → SMU 03-18 16:40
PROVIDERS: ADMIT Internal Medicine; ATTEND Internal Medicine
DX: J12.9 Viral pneumonia, unspecified (principal); J96.21 Acute and chronic respiratory failure with hypoxia; J44.1 Chronic obstructive pulmonary disease with (acute) exacerbation; J44.0 Chronic obstructive pulmonary disease with (acute) lower respiratory infection; I10 Essential (primary) hypertension; I48.0 Paroxysmal atrial fibrillation; E11.9 Type 2 diabetes mellitus without complications; Z59.0 Homelessness; Z87.442 Personal history of urinary calculi; Z03.818 Encounter for observation for suspected exposure to other biological agents ruled out; Z87.891 Personal history of nicotine dependence; Z79.01 Long term (current) use of anticoagulants; Z79.84 Long term (current) use of oral hypoglycemic drugs; Z79.899 Other long term (current) drug therapy
CPT/HCPCS: 36415; 36600; 71045; 80053; 82550-TC; 82728; 82803-TC; 82962; 83880; 84484; 85025; 85379; 85651-TC; 86140; 87040-TC; 93005; 94640; 94760; 96374; 99285; G0378; J0456; J0696; J1030; J1815; J2930; J3475; J7050; J7613; J7626; Q0144; U0002

== ENCOUNTER 2021-08-08 15:34 | Emergency (ER) | payer OTHER, MEDICAID ==
[~2021-08-08] VITALS: Ht 152.4 cm; Wt 77.1 kg
[~2021-08-08 15:34] MED LIST changes: +PRED20TA PO
[2021-08-08 15:47] VITALS: BP_SYST 135
[2021-08-08] MEDS ORDERED: NACL 0.9% 1,000 ML IV ONE (16:45)
[2021-08-08] MEDS ORDERED: IPRATROPIUM BROM 0.5 MG/2.5 ML VIAL.NEB (ATROVENT) INH ONE (16:45)
[2021-08-08] MEDS ORDERED: LevALBUTEROL HCL 1.25 MG/0.5 ML *CONC.* VIAL.NEB (XOPENEX CONC.) INH ONE ×2 (16:45→19:15)
[2021-08-08 18:04] LABS: BASOPHILS # (AUTO) 0.1 K/uL (0.0-0.2); EOSINOPHILS # (AUTO) 0.3 K/uL (0.0-0.4); EOSINOPHILS % (AUTO) 3.4 % (0.0-4.0); HEMATOCRIT 37.3 % (36-48); HEMOGLOBIN 12.5 g/dL (12.0-16.0); LYMPHOCYTES # (AUTO) 2.4 K/uL (1.0-5.5); LYMPHOCYTES % (AUTO) 26.3 % (20.5-51.5); MEAN CORPUSCULAR HEMOGLOBIN 30 pg (27-31); MEAN CORPUSCULAR HGB CONC 34 % (32-36); MEAN CORPUSCULAR VOLUME 91 fL (79.0-98.0); MONOCYTES # (AUTO) 0.5 K/uL (0.0-1.0); MONOCYTES % (AUTO) 5.1 % (1.7-9.3); NEUTROPHILS # (AUTO) 5.9 K/uL (1.8-7.7); NEUTROPHILS % (AUTO) 64.2 % (40.0-70.0); PLATELET COUNT (AUTO) 177 K/uL (130-430); RED BLOOD CELL COUNT(AUTO) 4.12 MIL/uL (4.2-6.2); RED CELL DISTRIBUTION WIDTH 13.7 % (9.0-15.0); WHITE BLOOD COUNT (AUTO) 9.1 K/uL (4.8-10.8)
[2021-08-08 18:11] LABS: ANION GAP 5 (5-15); CALCIUM 8.5 mg/dL (8.4-11.0); CHLORIDE 106 mmol/L (98-107); CREATININE 0.95 mg/dL (0.55-1.30); GLUCOSE 259 mg/dL (70-99); POTASSIUM 4.9 mmol/L (3.5-5.1); SODIUM SERUM 143 mmol/L (136-145); UREA NITROGEN, BLOOD 14 mg/dL (8-21)
[2021-08-08 18:22] LABS: ALANINE AMINOTRANSFERASE 14 U/L (12-78); ALBUMIN 3.3 g/dL (3.4-4.8); ASPARTATE AMINOTRANSFERASE 14 U/L (10-37); TOTAL BILIRUBIN 0.2 mg/dL (0.0-1.0)
[2021-08-08 18:22] LABS: BILIRUBIN,URINE NEGATIVE (NEGATIVE); BLOOD, URINE NEGATIVE (NEGATIVE); CLARITY/URINE CLEAR (CLEAR); COLOR,URINE YELLOW (YELLOW); GLUCOSE,URINE 3+ (NEGATIVE); KETONES,URINE TRACE (NEGATIVE); LEUKOCYTE ESTERASE ,URINE NEGATIVE (NEGATIVE); NITRITE, URINE NEGATIVE (NEGATIVE); PH,URINE 5.5 (5.0-8.0); PROTEIN URINE NEGATIVE (NEGATIVE); UROBILINOGEN,URINE 0.2 (0.2-1.0)
[2021-08-08 19:00] LABS: BACTERIA,URINE FEW /HPF (None Seen); RBC,URINE NONE SEEN /HPF (0-3); WBC,URINE 0-3 /HPF (0-3)
[2021-08-08 19:03] LABS: INR 0.9 (0.8-1.2); PROTHROMBIN TIME 10.1 SECS (9.5-12.5)
[2021-08-08] MEDS ORDERED: methylPREDNISolone SOD SUCC/PF 62.5 MG/ML VIAL IM ONE (19:15)
[2021-08-08] MEDS ORDERED: ZIT250 PO (21:00)
[2021-08-08] MEDS ORDERED: PRED20TA PO (21:01)
[2021-08-08 21:13] VITALS: BP_SYST 118
== END 2021-08-08 21:13 | disposition home or self-care (01) ==
LOC: SED 15:34
DX: J44.1 Chronic obstructive pulmonary disease with (acute) exacerbation (principal); I10 Essential (primary) hypertension; E11.9 Type 2 diabetes mellitus without complications; Z79.899 Other long term (current) drug therapy
CPT/HCPCS: 36415; 36600; 71045; 80053; 81000; 82803; 83605; 84484; 85025; 85610; 85730; 87040; 93005; 94640; 96360; 96372; 99285; J2930; J7030; J7612